=== PATIENT | female | born 1945 | race Caucasian/White ===

== ENCOUNTER → 2018-04-12 | Outpatient (REF) | payer MEDICARE, OTHER | LOC: M LAB REF 13:09 | DX: R91.8 Other nonspecific abnormal finding of lung field (principal); R04.2 Hemoptysis | CPT/HCPCS: 87205 ==

== ENCOUNTER → 2018-04-16 | Outpatient (CLI) | payer MEDICARE, BC, OTHER | LOC: M CARPUL 12:58 | DX: R91.8 Other nonspecific abnormal finding of lung field (principal) | CPT/HCPCS: 94060 ==

== ENCOUNTER → 2018-04-17 | Day surgery (SDC) | payer MEDICARE, BC, OTHER ==
[~2018-04-17] MED LIST: ALBUTEROL SULFATE 2.5 MG/0.5 ML INH NEB SOLN INH; GLYCOPYRROLATE INJ 0.2 MG/ML 2 ML VIAL As Ordered; LIDOCAINE 1% SDV 5 ML VIAL SQ; LIDOCAINE 4% INJ 5 ML AMP INH; LR 1,000 ML IV; MIDAZOLAM INJ 2 MG/2 ML VIAL (J2250) As Ordered; NEOSTIGMINE 10 MG/10 ML VIAL (J2710) As Ordered; ONDANSETRON 4MG/2ML VIAL (J2405) As Ordered; PROPOFOL 200 MG/20 ML VIAL As Ordered; ROCURONIUM BROMIDE 50 MG/5 ML VIAL As Ordered; SUCCINYLCHOLINE 100 MG/5 ML SYRINGE (J0330) As Ordered; dexameTHASONE 4 MG/ML 1ML VIAL (J1100) As Ordered; fentaNYL 100 MCG/2 ML INJECTION (J3010) As Ordered
[2018-04-17] MEDS: THROMBIN SOLN 20,000 UNITS KIT As Ordered ×2 (11:23)
[2018-04-17] MEDS: EPINEPHrine 1MG/10ML SYRINGE 1.5IN As Ordered ×2 (11:24)
[2018-04-17] MEDS: LIDOCAINE 4% TOPICAL SOLN 50 ML BTL As Ordered ×2 (11:24)
[2018-04-17] MEDS: LIDOCAINE VISCOUS 2% SOLN 15ML UDC As Ordered ×2 (11:24)
[2018-04-17] MEDS: CETACAINE SPRAY 5GM As Ordered ×2 (12:02)
[2018-04-17] MEDS: LIDOCAINE 1% SDV INJ 30 ML VIAL As Ordered ×2 (12:47)
== END | disposition home or self-care (01) ==
LOC: M SDC 10:15
DX: C34.32 Malignant neoplasm of lower lobe, left bronchus or lung (principal); C77.0 Secondary and unspecified malignant neoplasm of lymph nodes of head, face and neck; R91.8 Other nonspecific abnormal finding of lung field; R04.2 Hemoptysis; I10 Essential (primary) hypertension; J44.9 Chronic obstructive pulmonary disease, unspecified; E78.4 Other hyperlipidemia; E66.9 Obesity, unspecified; Z87.891 Personal history of nicotine dependence; Z79.899 Other long term (current) drug therapy
CPT/HCPCS: 31628

== ENCOUNTER → 2018-05-07 | Outpatient (CLI) | payer MEDICARE, BC, OTHER | LOC: M PLARAD 08:17 | DX: C34.32 Malignant neoplasm of lower lobe, left bronchus or lung (principal); C77.1 Secondary and unspecified malignant neoplasm of intrathoracic lymph nodes; C77.0 Secondary and unspecified malignant neoplasm of lymph nodes of head, face and neck | CPT/HCPCS: 78815 ==

== ENCOUNTER → 2018-05-15 | Outpatient (REF) | payer MEDICARE, BC, OTHER ==
[2018-05-15 13:44] LABS: INR 1.09; PROTHROMBIN TIME 14.2 SECONDS (12.1-14.4)
[2018-05-15 13:45] LABS: PARTIAL THROMBOPLASTIN TIME 31.1 SECONDS (25.4-37.6)
== END ==
LOC: M LAB REF 12:58
DX: C34.90 Malignant neoplasm of unspecified part of unspecified bronchus or lung (principal); Z79.01 Long term (current) use of anticoagulants
CPT/HCPCS: 85610

== ENCOUNTER → 2018-05-16 | Outpatient (CLI) | payer MEDICARE, BC, OTHER | LOC: M ONCR 13:05 | DX: C34.32 Malignant neoplasm of lower lobe, left bronchus or lung (principal); Z87.891 Personal history of nicotine dependence; I10 Essential (primary) hypertension; E11.9 Type 2 diabetes mellitus without complications | CPT/HCPCS: G0463 ==

== ENCOUNTER → 2018-10-07 | Outpatient (CLI) | payer MEDICARE, BC, OTHER ==
[~2018-10-07] MED LIST changes: -ALBUTEROL SULFATE 2.5 MG/0.5 ML INH NEB SOLN INH; -GLYCOPYRROLATE INJ 0.2 MG/ML 2 ML VIAL As Ordered; +LIDOCAINE 1% MDV 20ML VIAL As Ordered; -LIDOCAINE 1% SDV 5 ML VIAL SQ; -LIDOCAINE 4% INJ 5 ML AMP INH; -LR 1,000 ML IV; -MIDAZOLAM INJ 2 MG/2 ML VIAL (J2250) As Ordered; -NEOSTIGMINE 10 MG/10 ML VIAL (J2710) As Ordered; -ONDANSETRON 4MG/2ML VIAL (J2405) As Ordered; -PROPOFOL 200 MG/20 ML VIAL As Ordered; -ROCURONIUM BROMIDE 50 MG/5 ML VIAL As Ordered; -SUCCINYLCHOLINE 100 MG/5 ML SYRINGE (J0330) As Ordered; -dexameTHASONE 4 MG/ML 1ML VIAL (J1100) As Ordered; -fentaNYL 100 MCG/2 ML INJECTION (J3010) As Ordered
== END ==
LOC: M RADPRO 08:16
DX: C77.0 Secondary and unspecified malignant neoplasm of lymph nodes of head, face and neck (principal); C34.90 Malignant neoplasm of unspecified part of unspecified bronchus or lung
CPT/HCPCS: 38505

== ENCOUNTER → 2018-10-29 | Outpatient (CLI) | payer MEDICARE, BC, OTHER | LOC: M SMT 10:02 | DX: C34.32 Malignant neoplasm of lower lobe, left bronchus or lung (principal); J98.11 Atelectasis | CPT/HCPCS: 71046 ==

== ENCOUNTER 2018-11-01 07:02 | Day surgery (SDC) | payer MEDICARE, BC, OTHER ==
[2018-11-01 07:47] LABS: INR 1.25; PROTHROMBIN TIME 15.9 SECONDS (12.1-14.4)
[2018-11-01] MEDS: LR 1,000 ML IV (07:55)
[2018-11-01 08:01] LABS: BEDSIDE GLUCOSE 124 MG/DL (83-110)
[2018-11-01] MEDS ORDERED: LIDOCAINE 2% INJ 100 MG/5 ML SDV (FOR ANES.) As Ordered (08:32)
[2018-11-01] MEDS ORDERED: PROPOFOL 500 MG/50 ML VIAL As Ordered (08:32)
[2018-11-01] MEDS ORDERED: MIDAZOLAM INJ 2 MG/2 ML VIAL (J2250) As Ordered (08:33)
[2018-11-01] MEDS ORDERED: fentaNYL 100 MCG/2 ML INJECTION (J3010) As Ordered (08:33)
[2018-11-01] MEDS: MUPIROCIN 2% OINT 22 GM TUBE TOP (09:15)
[2018-11-01] MEDS: LIDOCAINE 1% SDV INJ 30 ML VIAL As Ordered (09:18)
[2018-11-01] MEDS: HEPARIN SOD (PORCINE) 5000 UNITS/ML VIAL As Ordered (09:22)
[2018-11-01] MEDS ORDERED: PROPOFOL 200 MG/20 ML VIAL As Ordered (09:23)
[2018-11-01] MEDS: ceFAZolin 2 GM/D5W 50 ML IV BAG (J0690 PER 500MG) As Ordered (09:43)
[2018-11-01] MEDS: BUPIVACAINE LIPOSOME/PF 1.3% 20ML VIAL (13.3MG/ML)(EXPAREL)(C9290 PER1MG) As Ordered (09:43)
== END 2018-11-01 10:45 | disposition home or self-care (01) ==
LOC: M SDC 07:02
DX: C34.32 Malignant neoplasm of lower lobe, left bronchus or lung (principal); Z45.2 Encounter for adjustment and management of vascular access device; I10 Essential (primary) hypertension; E11.9 Type 2 diabetes mellitus without complications; J44.9 Chronic obstructive pulmonary disease, unspecified; E78.5 Hyperlipidemia, unspecified; R32 Unspecified urinary incontinence; Z79.01 Long term (current) use of anticoagulants; Z79.899 Other long term (current) drug therapy; Z87.891 Personal history of nicotine dependence; Z86.718 Personal history of other venous thrombosis and embolism; E66.01 Morbid (severe) obesity due to excess calories
CPT/HCPCS: 36561

== ENCOUNTER → 2018-11-07 | Outpatient (CLI) | payer MEDICARE, BC, OTHER | LOC: M SMT 10:06 | DX: Z01.818 Encounter for other preprocedural examination (principal); C34.32 Malignant neoplasm of lower lobe, left bronchus or lung; J98.11 Atelectasis; J90 Pleural effusion, not elsewhere classified; Z97.8 Presence of other specified devices ==

== ENCOUNTER 2018-11-08 06:45 | Inpatient (IN) | payer MEDICARE, BC, OTHER ==
[2018-11-08] MEDS: IPRATROPIUM 0.5MG/ALBUTEROL 2.5MG INH SOL UD 3ML (DUONEB)(J7620) NEB (07:27)
[2018-11-08 07:36] LABS: BASO % 0.4 % (0.0-1.0); EOS # 0.2 10^3/uL (0.0-0.50); EOS % 2.1 % (0.0-3.0); HEMATOCRIT 34.2 % (36.0-47.0); HEMOGLOBIN 11.2 g/dl (12.0-15.5); IMMATURE GRANULOCYTE % 0.4 % (0-3.0); LYMPH # 0.9 10^3/uL (1.5-4.5); LYMPH % 8.6 % (24.0-44.0); MEAN CORPUSCULAR HEMOGLOBIN 26.9 pg (27.0-33.0); MEAN CORPUSCULAR HGB CONC 32.7 g/dl (32.0-36.5); MONO # 0.8 10^3/uL (0.0-0.8); NEUTROPHILS # 8.7 10^3/uL (1.8-7.7); NEUTROPHILS % 81.5 % (36.0-66.0); PLATELET COUNT, AUTOMATED 108 10^3/uL (150-450); RED BLOOD COUNT 4.17 10^6/uL (4.00-5.40); WHITE BLOOD COUNT 10.7 10^3/uL (4.0-10.0)
[2018-11-08 07:38] LABS: VENOUS BASE EXCESS 0.9 (-2.0-2.0); VENOUS O2 SATURATION 91.4 % (60.0-80.0); VENOUS PARTIAL PRESSURE CO2 38.1 mmHg (38.0-50.0); VENOUS PARTIAL PRESSURE O2 60.7 mmHg (30.0-50.0); VENOUS PH 7.435 UNITS (7.330-7.430); VENOUS STANDARD HCO3 25.2 MEQ/L; VENOUS TOTAL CO2 26.2 MEQ/L (24.0-28.0)
[2018-11-08 07:46] LABS: INR 1.53; PROTHROMBIN TIME 18.6 SECONDS (12.1-14.4)
[2018-11-08 08:40] LABS: ALBUMIN 3.2 GM/DL (3.2-5.2); ALBUMIN/GLOBULIN RATIO 0.91 (1.00-1.93); ALKALINE PHOSPHATASE 79 U/L (45-117); ALT/SGPT 49 U/L (12-78); ANION GAP 11 MEQ/L (8-16); AST/SGOT 369 U/L (7-37); BILIRUBIN,DIRECT 0.3 MG/DL (0.0-0.2); BILIRUBIN,TOTAL 1.4 MG/DL (0.2-1.0); BLOOD UREA NITROGEN 17 MG/DL (7-18); CALCIUM LEVEL 8.3 MG/DL (8.8-10.2); CARBON DIOXIDE LEVEL 24 MEQ/L (21-32); CHLORIDE LEVEL 107 MEQ/L (98-107); CPK CREATINE PHOSPHOKINASE 1848 U/L (26-192); CREATININE FOR GFR 0.86 MG/DL (0.55-1.30); GLOMERULAR FILTRATION RATE > 60.0 (>39); GLUCOSE, FASTING 148 MG/DL (70-100); MB/CK RELATIVE INDEX 8.51 (< OR =4); NT-PRO BNP 4950 PG/ML (<450); POTASSIUM SERUM 3.1 MEQ/L (3.5-5.1); SODIUM LEVEL 142 MEQ/L (136-145); TOTAL PROTEIN 6.7 GM/DL (6.4-8.2)
[2018-11-08] MEDS: ASPIRIN 81 MG CHEW TABLET PO (08:52)
[2018-11-08] MEDS ORDERED: METOPROLOL TARTRATE 100 MG TAB PO (09:00)
[2018-11-08] MEDS ORDERED: LISINOPRIL *2.5 MG* TAB PO (09:00)
[2018-11-08] MEDS: CLOPIDOGREL 300 MG TAB (PLAVIX) PO (09:13)
[2018-11-08] MEDS ORDERED: NITROGLYCERIN 0.4 MG SUBL TABLET SL (10:15)
[2018-11-08] MEDS ORDERED: PILL CRUSHER/CUTTER 1 EACH XX (11:00)
[2018-11-08 13:24] LABS: INR 1.45; PARTIAL THROMBOPLASTIN TIME 33.9 SECONDS (25.4-37.6); PROTHROMBIN TIME 17.9 SECONDS (12.1-14.4)
[2018-11-08 13:35] LABS: ESTIMATED AVERAGE GLUCOSE 123 MG/DL (60-110); HEMOGLOBIN A1c 5.9 %
[2018-11-08 13:55] LABS: CPK CREATINE PHOSPHOKINASE 1703 U/L (26-192); MB/CK RELATIVE INDEX 6.17 (< OR =4)
[2018-11-08] MEDS: ATORVASTATIN 20 MG TAB PO (14:43)
[2018-11-08] MEDS: METOPROLOL TART 25 MG TABLET PO ×2 (14:44→21:09)
[2018-11-08] MEDS: FOLIC ACID 1 MG TAB PO (14:44)
[2018-11-08] MEDS: LOSARTAN 25 MG TAB PO (14:45)
[2018-11-08] MEDS: RIVAROXABAN 20 MG TAB (XARELTO) PO (17:10)
[2018-11-08 20:00] LABS: CPK CREATINE PHOSPHOKINASE 1218 U/L (26-192); MB/CK RELATIVE INDEX 4.21 (< OR =4)
[2018-11-08 22:31] LABS: PARTIAL THROMBOPLASTIN TIME 42.6 SECONDS (25.4-37.6)
[2018-11-08] MEDS: HEPARIN DRIP 25,000 UNITS in APPROPRIATE DILUENT 1 EA IV (22:43)
[2018-11-09 02:20] LABS: CPK CREATINE PHOSPHOKINASE 899 U/L (26-192); MB/CK RELATIVE INDEX 3.08 (< OR =4)
[2018-11-09 05:41] LABS: HEMATOCRIT 34.3 % (36.0-47.0); HEMOGLOBIN 11.1 g/dl (12.0-15.5); MEAN CORPUSCULAR HEMOGLOBIN 26.9 pg (27.0-33.0); MEAN CORPUSCULAR HGB CONC 32.4 g/dl (32.0-36.5); MEAN CORPUSCULAR VOLUME 83.1 fl (80.0-96.0); PLATELET COUNT, AUTOMATED 119 10^3/uL (150-450); RED BLOOD COUNT 4.13 10^6/uL (4.00-5.40); WHITE BLOOD COUNT 13.3 10^3/uL (4.0-10.0)
[2018-11-09] MEDS: METOPROLOL TART 25 MG TABLET PO ×2 (05:44→09:47)
[2018-11-09 05:53] LABS: PARTIAL THROMBOPLASTIN TIME 67.3 SECONDS (25.4-37.6)
[2018-11-09] MEDS: ALBUTEROL 90 MCG/ACT 8GM HFA INHALER INH (05:55)
[2018-11-09 05:59] LABS: ANION GAP 10 MEQ/L (8-16); BLOOD UREA NITROGEN 25 MG/DL (7-18); CALCIUM LEVEL 8.1 MG/DL (8.8-10.2); CARBON DIOXIDE LEVEL 25 MEQ/L (21-32); CHLORIDE LEVEL 107 MEQ/L (98-107); CREATININE FOR GFR 0.91 MG/DL (0.55-1.30); GLOMERULAR FILTRATION RATE > 60.0 (>39); GLUCOSE, FASTING 145 MG/DL (70-100); POTASSIUM SERUM 3.1 MEQ/L (3.5-5.1); SODIUM LEVEL 142 MEQ/L (136-145)
[2018-11-09] MEDS: GILOTRIF PO (06:26)
[2018-11-09] MEDS: POTASSIUM CHLORIDE 10 MEQ SR TABLET PO (07:59)
[2018-11-09] MEDS: ASPIRIN ENTERIC 325 MG TAB PO (08:01)
[2018-11-09] MEDS: CLOPIDOGREL 75 MG TAB PO (08:01)
[2018-11-09] MEDS: ATORVASTATIN 20 MG TAB PO (08:01)
[2018-11-09] MEDS: FOLIC ACID 1 MG TAB PO (08:01)
[2018-11-09] MEDS: LOSARTAN 25 MG TAB PO (09:47)
[2018-11-09 10:32] LABS: PARTIAL THROMBOPLASTIN TIME 64.1 SECONDS (25.4-37.6)
[2018-11-09] MEDS: HEPARIN SOD (PORCINE) 5000 UNITS/ML VIAL IV (11:04)
[2018-11-09] MEDS: HEPARIN DRIP 25,000 UNITS in APPROPRIATE DILUENT 1 EA IV (11:53)
== END 2018-11-09 12:54 | disposition short-term general hospital (02) | DRG 281 ==
LOC: M ED 06:45 → M ED INP 10:54 → M PCU 12:12
PROVIDERS: Internal Medicine
DX: I21.4 Non-ST elevation (NSTEMI) myocardial infarction (principal); C34.90 Malignant neoplasm of unspecified part of unspecified bronchus or lung; C77.0 Secondary and unspecified malignant neoplasm of lymph nodes of head, face and neck; I10 Essential (primary) hypertension; E11.9 Type 2 diabetes mellitus without complications; Z86.718 Personal history of other venous thrombosis and embolism; E78.49 Other hyperlipidemia; Z79.899 Other long term (current) drug therapy; E66.9 Obesity, unspecified; Z66 Do not resuscitate

== ENCOUNTER 2018-11-19 16:39 | Inpatient (IN) | payer MEDICARE, BC, OTHER ==
[~2018-11-19] VITALS: Ht 165.1 cm; Wt 116.6 kg
[~2018-11-19 16:39] MED LIST changes: +**UNRESOLVED NON-FORMULARY MED ORDER XX SCH; +DEXA4TA PO; +FOLI1TAB5 PO; +GILO1TAB2 PO; +IMOD2CAP PO; -LIDOCAINE 1% MDV 20ML VIAL As Ordered; +LOSA100T5 PO; +LOSA50TA5 PO; +PRAV10TA3 PO; +PROAAER10 INH; +XARE20TA PO; +[UNRECOGNIZED DRUG - CODE] PO
[2018-11-19] MEDS ORDERED: FURO40TA2 (17:11)
[2018-11-19] MEDS ORDERED: LISI-542 (17:11)
[2018-11-19] MEDS ORDERED: ASPI81CH3 (17:11)
[2018-11-19] MEDS ORDERED: METO50TA7 (17:11)
[2018-11-19] MEDS ORDERED: AMIO200T (17:11)
[2018-11-19] MEDS ORDERED: CLOP75TA2 (17:11)
[2018-11-19] MEDS ORDERED: SPIR-10 (17:12)
[2018-11-19] MEDS ORDERED: NITR0.4S14 (17:12)
[2018-11-19] MEDS ORDERED: PANT40TA3 (17:12)
[2018-11-19 17:13] LABS: VENOUS BASE EXCESS -1.9 (-2.0-2.0); VENOUS HCO3 22.9 MEQ/L (23.0-27.0); VENOUS O2 SATURATION 68.7 % (60.0-80.0); VENOUS PARTIAL PRESSURE CO2 39.2 mmHg (38.0-50.0); VENOUS PARTIAL PRESSURE O2 38.7 mmHg (30.0-50.0); VENOUS PH 7.384 UNITS (7.330-7.430); VENOUS STANDARD HCO3 22.3 MEQ/L; VENOUS TOTAL CO2 24.1 MEQ/L (24.0-28.0)
[2018-11-19] MEDS ORDERED: IPRATROPIUM 0.5MG/ALBUTEROL 2.5MG INH SOL UD 3ML (DUONEB)(J7620) NEB ONE (17:15)
[2018-11-19 17:18] LABS: BASO # 0.1 10^3/uL (0.0-0.2); BASO % 0.5 % (0.0-1.0); EOS # 0.4 10^3/uL (0.0-0.50); EOS % 3.6 % (0.0-3.0); HEMOGLOBIN 10.2 g/dl (12.0-15.5); LYMPH # 1.1 10^3/uL (1.5-4.5); LYMPH % 10.9 % (24.0-44.0); MEAN CORPUSCULAR HEMOGLOBIN 26.4 pg (27.0-33.0); MEAN CORPUSCULAR HGB CONC 31.9 g/dl (32.0-36.5); MEAN CORPUSCULAR VOLUME 82.7 fl (80.0-96.0); MONO # 0.7 10^3/uL (0.0-0.8); NEUTROPHILS # 7.8 10^3/uL (1.8-7.7); NEUTROPHILS % 76.9 % (36.0-66.0); PLATELET COUNT, AUTOMATED 207 10^3/uL (150-450); RED BLOOD COUNT 3.87 10^6/uL (4.00-5.40); WHITE BLOOD COUNT 10.2 10^3/uL (4.0-10.0)
[2018-11-19 17:40] LABS: INR 3.18; PROTHROMBIN TIME 33.3 SECONDS (12.1-14.4)
[2018-11-19 17:52] LABS: ALBUMIN 3.2 GM/DL (3.2-5.2); BILIRUBIN,DIRECT 0.1 MG/DL (0.0-0.2); BILIRUBIN,TOTAL 1.2 MG/DL (0.2-1.0); CALCIUM LEVEL 8.2 MG/DL (8.8-10.2); CREATININE FOR GFR 1.27 MG/DL (0.55-1.30); GLOMERULAR FILTRATION RATE 43.7 (>39); MB/CK RELATIVE INDEX 2.01 (< OR =4); POTASSIUM SERUM 5.5 MEQ/L (3.5-5.1); THYROID STIMULATING HORMONE 4.28 uIU/ML (0.358-3.740); THYROXINE (T4) 9.9 UG/DL (4.5-12.0); TOTAL PROTEIN 7.2 GM/DL (6.4-8.2); TROPONIN I 0.78 NG/ML (< 0.10)
--- NOTE | 2018-11-19 17:57 | REP ---
Clinical: Cough and dyspnea. Comparison: 11/08/2018. Findings: Mediastinum and cardiac silhouette are stable. Jiwjmz-B-Jurm again identified with tip in the SVC. Diffuse chronic interstitial changes are noted. No obvious acute consolidation, effusion, or pneumothorax. Skeletal structures intact. Impression: Findings appear relatively stable when compared to 11/08/2018. Electronically Signed by Danish Rico MD 11/19/2018 05:48 P
[2018-11-19] MEDS ORDERED: FUROSEMIDE 40 MG/4 ML VIAL (J1940) IV ONE (18:15)
[2018-11-19 19:45] LABS: MB/CK RELATIVE INDEX 4.5 (< OR =4); TROPONIN I 0.78 NG/ML (< 0.10)
[2018-11-19 20:48] LABS: POTASSIUM SERUM 3.6 MEQ/L (3.5-5.1)
[2018-11-19] MEDS ORDERED: PANT40TA3 PO (21:14)
[2018-11-19] MEDS ORDERED: ASPI81CH PO (21:14)
[2018-11-19] MEDS ORDERED: IMOD2TAB16 PO (21:14)
[2018-11-19] MEDS ORDERED: FURO40TA2 PO (21:14)
[2018-11-19] MEDS ORDERED: NITR4TASL SL (21:14)
[2018-11-19] MEDS ORDERED: METO50TA7 PO (21:14)
[2018-11-19] MEDS ORDERED: AMIO200T PO (21:14)
[2018-11-19] MEDS ORDERED: CLOP75TA2 PO (21:14)
[2018-11-19] MEDS ORDERED: SPIR-10 PO (21:14)
[2018-11-19] MEDS ORDERED: LISI-542 PO (21:14)
[2018-11-19] MEDS ORDERED: ALBUTEROL 90 MCG/ACT 8GM HFA INHALER INH PRN (21:45)
[2018-11-19] MEDS ORDERED: ACETAMINOPHEN TAB 650MG DOSE (2X325MG) PO PRN (22:15)
[2018-11-19] MEDS ORDERED: FUROSEMIDE 100 MG/10 ML VIAL (J1940) IV SCH (23:00)
[2018-11-20] VITALS (8 sets, daily range): BP systolic 92–155; BP diastolic 50–68
[2018-11-20 05:17] LABS: HEMATOCRIT 31.7 % (36.0-47.0); MEAN CORPUSCULAR HEMOGLOBIN 25.8 pg (27.0-33.0); MEAN CORPUSCULAR HGB CONC 31.5 g/dl (32.0-36.5); MEAN CORPUSCULAR VOLUME 81.9 fl (80.0-96.0); PLATELET COUNT, AUTOMATED 175 10^3/uL (150-450); RED BLOOD COUNT 3.87 10^6/uL (4.00-5.40); WHITE BLOOD COUNT 10.2 10^3/uL (4.0-10.0)
[2018-11-20 05:50] LABS: CALCIUM LEVEL 9.1 MG/DL (8.8-10.2); CREATININE FOR GFR 1.03 MG/DL (0.55-1.30); GLOMERULAR FILTRATION RATE 55.6 (>39); POTASSIUM SERUM 3.3 MEQ/L (3.5-5.1); TROPONIN I 0.81 NG/ML (< 0.10)
[2018-11-20] MEDS ORDERED: FUROSEMIDE 100 MG/10 ML VIAL (J1940) IV SCH (06:00)
[2018-11-20] MEDS ORDERED: GILOTRIF 40 MG PO SCH (06:00)
[2018-11-20] MEDS ORDERED: KCL 10MEQ/100ML SWI (KRUN) 10 MEQ in APPROPRIATE DILUENT 1 EA IV ONE (07:00)
[2018-11-20] MEDS ORDERED: POTASSIUM CHLORIDE 10 MEQ SR TABLET PO ONE ×2 (07:00→12:00)
--- NOTE | 2018-11-20 07:01 | HPE ---
DATE OF ADMISSION: 11/19/2018 73-year-old white female presents to the emergency room with shortness of breath. Her history is noteworthy for a recent anterior myocardial infarction (WV) toward the end of October. She was admitted initially to [facility] with shortness of breath and electrocardiographic and enzymes compatible with anterior wall WV. She had initially refused transfer to [place] but later did acquiesce to that decision. She underwent cardiac catheterization. She had occluded mid LAD and had coronary thrombectomy, balloon angioplasty and bare metal stent placement. Bare metal stent was placed as the patient also is on long-term anticoagulation with Xarelto for recent deep venous thrombosis (DVT) in her left leg. At time of cardiac catheterization, she had severe left ventricular dysfunction with an ejection fraction (EF) of about 25%. Around the time of the procedure, she also had an episode of atrial fibrillation.and now on Amiodarone She comes in today again with shortness of breath. She has been home for about 4 days she states. She is short of breath with any activity. Her electrocardiogram is unchanged with evidence of recent anterior wall WV. There is also evidence of a prior inferior wall WV. Her rhythm is normal sinus. Her chest x-ray is compatible with cardiomegaly and congestive heart failure. Pro-BNP is elevated and troponin is elevated at 0.78 without a rise from initial value which was the same. Her pro-BMP is 9000. PAST MEDICAL HISTORY: Cardiac history as above with recent ST elevation WV (anterior wall) with thrombectomy and stent placement in LAD with residual EF of about 25%, recent PAF, fairly recent DVT left leg associated with lung cancer with mets to a cervical lymph node. She does have a port left subclavian area. She also has diabetes but does not take any medications for same. She follows with Dr. Martinez for her lung cancer. She has a followup cardiology appointment with Dr. Castro on December 06. She normally follows with Dr. Hernandez. She also has a history of hypertension. She has had remote tubal ligation. She is also noted to be anemic with hemoglobin recently in the low to mid 30s. SOCIAL HISTORY: She lives with her . She stopped smoking 30 years ago. FAMILY HISTORY: Dad had premature coronary disease. There is no diabetes in her family, although the patient states she is a diabetic. She does not take any medications for same. She states she watches her diet. CURRENT MEDICATIONS: - amiodarone 200 mg daily - baby aspirin - Plavix 75 mg - Lasix 40 mg - lisinopril 5 mg - metoprolol tartrate 50 mg two times a day - Protonix 40 mg a day - spirolactone 25 mg - Afatinib 40 mg a day - folic acid 1 mg a day - pravastatin 10 mg a day - Xarelto 20 mg a day REVIEW OF SYSTEMS: General: She has not had any weight gain since she has been home from the hospital. HEENT: Is negative. Cardiopulmonary: Shortness of breath. She denies any chest pain. GI: Negative. : Urinary frequency following Lasix given in the ER. Hematologic: Easy bruising. She has multiple bruises. Psych: Negative. Vascular: Recent DVT left leg. Hematologic: Recent mild anemia as noted. PHYSICAL EXAMINATION: Blood pressure is 150/70. Heart rate is 70, O2 sats on room air 97%. Temperature is afebrile. General appearance: Obese white female, alert and cooperative. She does not appear to be short of breath at rest. She talks in complete sentences. HEENT: Head is normocephalic, atraumatic. Eyes: Pupils are equal. Sclerae anicteric. Conjunctival injection. Oropharynx: There is only one or two teeth remaining. Neck is very full, difficult to assess neck veins but there is no obvious JVD. There is a lymph node in the right supraclavicular area noted. Apparently this is metastatic cancer from her lung. Cardiac was regular with systolic murmur. I was unable to appreciate any gallops. Chest: Rales at the bases bilaterally. Few wheezes at the right base. Abdomen: Obese, otherwise unremarkable. Extremities: No clubbing, cyanosis or edema. Recent DVT in left leg. Neuro: Intact. Skin: Multiple areas of ecchymosis. Catheterization site was right radial artery. This has a bandage over it. It is nontender. Database: EKG is as described which is unchanged from prior. Troponin as noted. BNP as noted. Chest x-ray as noted. Renal function: GFR 43. Lactic acid is mildly elevated at 2.1, probably secondary to heart failure. There is no clinical suggestion of sepsis. IMPRESSION/PLAN: 1. Ischemic cardiomyopathy with CHF with recent cardiac catheterization and stent following an ST elevation WV with stent LAD with residual EF about 25%. The patient is on a small dose of MOLLY inhibitor. Options would be to increase that or possibly consider switching to Entresto. Certainly she would be a good candidate for that. She will be treated initially with diuretic therapy. Certainly there is room with her blood pressure to increase her MOLLY. She has an appointment with Dr. Castro on December 06 already scheduled. 2. Probably underlying COPD stopped smoking 35 years ago. 3. Lung cancer with metastasis. 4. Recent DVT on Xarelto. Also continues on Plavix and aspirin with recent bare metal stent. 5. Diabetes diet-controlled. Her sugars run in the mid 100 it looks like. 6. Hypertensive cardiovascular disease. 7. PAF currently on amiodarone. 8. Metastatic lung cancer. The patient does have a port in the left subclavian area. She is scheduled for chemotherapy, follows with Dr. Martinez, currently on an oral medication which will be continued (Afatinib). 9. Hyperlipidemia, she is currently on pravastatin 10 mg. We will put her on a high intensity statin. MTDD
[2018-11-20] MEDS ORDERED: PANTOPRAZOLE 40MG TAB (PROTONIX) PO SCH (09:00)
[2018-11-20] MEDS ORDERED: METOPROLOL TART 50 MG TAB PO SCH (09:00)
[2018-11-20] MEDS ORDERED: AMIODARONE 200 MG TAB (PACERONE) PO SCH (09:00)
[2018-11-20] MEDS ORDERED: SPIRONOLACTONE 25 MG TAB PO SCH (09:00)
[2018-11-20] MEDS ORDERED: FOLIC ACID 1 MG TAB PO SCH (09:00)
[2018-11-20] MEDS ORDERED: ASPIRIN 81 MG CHEW TABLET PO SCH (09:00)
[2018-11-20] MEDS ORDERED: CLOPIDOGREL 75 MG TAB PO SCH (09:00)
[2018-11-20] MEDS ORDERED: LISINOPRIL 10 MG TAB PO SCH (09:00)
[2018-11-20] MEDS ORDERED: AMIODARONE HCL 150 MG in APPROPRIATE DILUENT 1 EA IV STA (09:19)
[2018-11-20] MEDS ORDERED: AMIODARONE HCL 150 MG/100 ML PREMIXED BAG (NEXTERONE) As Ordered ONE (09:22)
[2018-11-20] MEDS ORDERED: NITROGLYCERIN 2% OINT 1 GM *U/D* PKT As Ordered ONE (09:24)
[2018-11-20 09:49] LABS: HEMATOCRIT 34.5 % (36.0-47.0); HEMOGLOBIN 10.9 g/dl (12.0-15.5); MEAN CORPUSCULAR HEMOGLOBIN 26.8 pg (27.0-33.0); MEAN CORPUSCULAR HGB CONC 31.6 g/dl (32.0-36.5); PLATELET COUNT, AUTOMATED 160 10^3/uL (150-450); RED BLOOD COUNT 4.06 10^6/uL (4.00-5.40); WHITE BLOOD COUNT 16.7 10^3/uL (4.0-10.0)
[2018-11-20] MEDS ORDERED: HEPARIN DRIP 25,000 UNITS in APPROPRIATE DILUENT 1 EA IV SCH (10:00)
[2018-11-20] MEDS ORDERED: HEPARIN SOD (PORCINE) 5000 UNITS/ML VIAL IV PRN (10:00)
[2018-11-20] MEDS ORDERED: AMIODARONE HCL 150 MG in APPROPRIATE DILUENT 1 EA IV ONE (10:00)
[2018-11-20] MEDS ORDERED: HEPARIN 25,000 UNITS/250 ML D5W BAG (100 UNITS/ML) As Ordered ONE (10:05)
[2018-11-20] MEDS ORDERED: AMIODARONE HCL 360 MG/200 ML PREMIXED BAG (NEXTERONE) As Ordered ONE (10:05)
--- NOTE | 2018-11-20 10:10 | REP ---
Chest one-view HISTORY: Cardiac arrest Comparison: 11/19/2018 A minimal increase in interstitial markings is present in the lungs consistent with chronic interstitial change. The cardiac silhouette is enlarged. The pulmonary vasculature is normal in appearance. An Ijftlu-G-Pmaj catheter is present. Impression: 1. Chronic interstitial change. 2. Cardiomegaly. Electronically Signed by Rafi Faustin MD 11/20/2018 10:01 A
[2018-11-20 10:16] LABS: CALCIUM LEVEL 8.7 MG/DL (8.8-10.2); CREATININE FOR GFR 1.38 MG/DL (0.55-1.30); GLOMERULAR FILTRATION RATE 39.7 (>39); MB/CK RELATIVE INDEX 4.08 (< OR =4); POTASSIUM SERUM 3.6 MEQ/L (3.5-5.1); TROPONIN I 0.78 NG/ML (< 0.10)
[2018-11-20] MEDS ORDERED: AMIODARONE HCL 360 MG in APPROPRIATE DILUENT 1 EA IV SCH (10:30)
[2018-11-20] MEDS ORDERED: NS 1,000 ML IV SCH (10:30)
--- NOTE | 2018-11-20 10:31 | ECGEPIP ---
Stationary ECG Study [facility] Test Date: 2018-11-20 Pat Name: GRIFFIN BRADY Department: Room: [place] [address] Gender: F It [employer] Rec[employer]iter: KYLAH : 1945 Requested By: PAOLA CERVANTES Order Number: [id number] Reading MD: Ryan Ralph Measurements Intervals [place] Rate: 82 P: DE: 0 QRS: 47 QRSD: 120 T: 151 QT: 400 QTc: 468 Interpretive Statements Normal sinus rhythm alternating with accelerated junctional rhythm. Somewhat low voltage with slow precordial R-wave progression. QRS pattern with elevated ST segmentsV1 through V5 - Unchanged from 11/09/18 consistent with prior AWMI/LV aneurysm. Today's tracing shows less ectopic activity despite her recent cardiac arrest Electronically Signed On 11-20-2018 10:31:01 EST by Ryan Ralph
[2018-11-20] MEDS ORDERED: EPINEPHrine 1MG/10ML SYRINGE 1.5IN ONE (11:14)
--- NOTE | 2018-11-20 12:27 | DS.PDOC ---
Discharge Summary General Date of Admission Nov 19, 2018 at 21:37 Date of Discharge 11/20/2018 Discharge Summary PROCEDURES PERFORMED DURING STAY: [None]. ADMITTING DIAGNOSES / DISCHARGE DIAGNOSES: Cardiac arrest STEMI - possibly 2/2 stent reocclusion CAD s/p stent HTN DM2 (Diet controlled) DLP Hx of LLE DVT (on Xarelto) Stage III Advanced Lung adenocarcinoma with spread to cervical lymph nodes COMPLICATIONS/CHIEF COMPLAINT: Shortness of breath HISTORY OF PRESENT ILLNESS / HOSPITAL COURSE: Patient is a 73-year-old female with a past medical history of hypertension, diabetes mellitus (diet controlled), hyperlipidemia, Hx of LLE DVT (on Xarelto), Lung adenocarcinoma with spread to cervical lymph nodes, with plan to start chemotherapy. Recent admission on 11/08 and transfer to [facility] on 11/09 for cardiac catheterization for STEMI. Patient a cardiac catheterization completed on 11/11, and had a stent placement. Presented back to the hospital on 11/19/2018 for shortness of breath. Patient was admitted by the nocturnal his for suspected fluid overload from congestive heart failure. Chest x-ray revealed chronic interstitial changes and cardiomegaly. BNP was found to be 9000. Troponin were not significantly elevated and remained at 0.78 0.81. EKG did reveal ischemic change. On the morning of 11/20/2018 patient developed ventricular tachycardia and went into cardiac arrest. She received epinephrine and was shocked twice. Discussed with the , Brian Juares, during the code, had advised to stop resuscitation efforts. However, at this time, patient's pulse had regained. Her mentation had improved and her heart rate was in sinus rhythm. Amiodarone was started. Patient indicated that she wants everything to be done. I've advised her that this would involve having reevaluation of her recent stent. Patient verbalized understanding and steps or taken to transfer the patient to [facility] in [place]. Patient was accepted on transfer by Dr. Niko Morillo who had originally performed the cardiac catheterization. Patient is transferred with amiodarone and heparin drip. DISCHARGE MEDICATIONS: Please see below. ALLERGIES: Please see below. PHYSICAL EXAMINATION ON DISCHARGE: Vitals (See below) General: Lying in bed, no acute distress, comfortable, Awake / Alert, Conversing HEENT: NC, AT CVS: RRR, +S1S2 Lungs: Fair air entry b/l, -w/r/r Abdomen: Soft, ND, NT Extremities: - Edema, - Calf tenderness LABORATORY DATA: Please see below. ACTIVITY: [As tolerated]. DISCHARGE PLAN: Transfer to [facility] for further cardiac evaluation DISPOSITION: Transfer to [facility] for further cardiac evaluation DISCHARGE CONDITION: [Stable]. TIME SPENT ON DISCHARGE: Greater than [35] minutes. Vital Signs/I&Os Vital Signs Date Time Temp Pulse Resp B/P (MAP) Pulse Ox O2 Delivery O2 Flow Rate FiO2 11/20/18 09:06 92 155/68 11/20/18 08:00 97.8 20 90 Room Air I&O- Last 24 Hours up to 6 AM 11/20/18 06:00 Output Total 700 ml Balance -700 ml Laboratory Data Labs 24H Laboratory Tests 2 11/19/18 17:03: Immature Granulocyte % (Auto) 1.1, White Blood Count 10.2H, Red Blood Count 3.87 L, Hemoglobin 10.2L, Hematocrit 32.0L, Mean Corpuscular Volume 82.7, Mean Corpuscular Hemoglobin 26.4L, Mean Corpuscular Hemoglobin Concent 31.9L, Red Cell Distribution Width 15.4H, Platelet Count 207, Neutrophils (%) (Auto) 76.9H, Lymphocytes (%) (Auto) 10.9L, Monocytes (%) (Auto) 7.0H, Eosinophils (%) (Auto) 3.6H, Basophils (%) (Auto) 0.5, Neutrophils # (Auto) 7.8H, Lymphocytes # (Auto) 1.1L, Monocytes # (Auto) 0.7, Eosinophils # (Auto) 0.4, Basophils # (Auto) 0.1, Nucleated Red Blood Cells % (auto) 0.2H, Prothrombin Time 33.3H, Prothromb Time International Ratio 3.18, Blood Gas Bicarbonate Standard 22.3, Venous Blood pH 7.384, Venous Blood Partial Pressure CO2 39.2, Venous Blood Partial Pressure O2 38.7, Venous Blood Total Carbon Dioxide 24.1, Venous Blood HCO3 22.9L, Venous Blood Oxygen Saturation 68.7, Venous Blood Base Excess -1.9, Anion Gap 10, Glomerular Filtration Rate 43.7, Lactic Acid Level 2.1*H, Calcium Level 8.2L, Aspartate Amino Transf (AST/SGOT) 79H, Alanine Aminotransferase (ALT/SGPT) 41, Alkaline Phosphatase 83, Total Bilirubin 1.2H, Direct Bilirubin 0.1, Total Crea sriram Kinase 279H, Creatine Kinase MB 6.0H, Creatine Kinase MB Relative Index 2.01, Troponin I 0.78H, LC-Geq-A-Type Natriuretic Peptide 9155H, Total Protein 7.2, Albumin 3.2, Albumin/Globulin Ratio 0.80L, Thyroid Stimulating Hormone (TSH) 4.280H, Thyroxine (T4) 9.9 11/19/18 19:00: Total Creatine Kinase 120, Creatine Kinase MB 5.0H, Creatine Kinase MB Relative Index 4.50H, Troponin I 0.78H, Potassium Level 3.6# 11/20/18 04:38: Nucleated Red Blood Cells % (auto) 0.0, Anion Gap 8, Glomerular Filtration Rate 55.6, Calcium Level 9.1, Troponin I 0.81H, Potassium Level 3.3L, Blood Urea Nitrogen 23H, Creatinine 1.03, Sodium Level 141, Chloride Level 109H, Carbon Dioxide Level 24 11/20/18 09:36: Nucleated Red Blood Cells % (auto) 0.4H, Anion Gap 15, Glomerular Filtration Rate 39.7, Lactic Acid Level 7.3*H, Calcium Level 8.7L, Total Creatine Kinase 152, Creatine Kinase MB 6.0H, Creatine Kinase MB Relative Index 4.08H, Troponin I 0.78H, Potassium Level 3.6, Blood Urea Nitrogen 22H, Creatinine 1.38H, Sodium Level 139, Chloride Level 105, Carbon Dioxide Level 19L CBC/BMP Laboratory Tests 11/19/18 17:03 Red Blood Count 3.87 L, Mean Corpuscular Volume 82.7, Mean Corpuscular Hemoglobin 26.4 L, Mean Corpuscular Hemoglobin Concent 31.9 L, Red Cell Distribution Width 15.4 H, Neutrophils (%) (Auto) 76.9 H, Lymphocytes (%) (Auto) 10.9 L, Monocytes (%) (Auto) 7.0 H, Eosinophils (%) (Auto) 3.6 H, Basophils (%) (Auto) 0.5, Neutrophils # (Auto) 7.8 H, Lymphocytes # (Auto) 1.1 L, Monocytes # (Auto) 0.7, Eosinophils # (Auto) 0.4, Basophils # (Auto) 0.1 11/19/18 19:00 Total Creatine Kinase 120 11/20/18 04:38 Red Blood Count 3.87 L, Mean Corpuscular Volume 81.9, Mean Corpuscular Hemoglobin 25.8 L, Mean Corpuscular Hemoglobin Concent 31.5 L, Red Cell Distribution Width 15.3 H, Calcium Level 9.1 11/20/18 09:36 Red Blood Count 4.06, Mean Corpuscular Volume 85.0, Mean Corpuscular Hemoglobin 26.8 L, Mean Corpuscular Hemoglobin Concent 31.6 L, Red Cell Distribution Width 15.6 H, Total Creatine Kinase 152, Calcium Level 8.7 L Microbiology Microbiology 11/19/18 Blood Culture, Received Pending 11/19/18 Blood Culture, Received Pending 11/19/18 Respiratory Virus Panel (PCR) (BENEDICT) - Final, Complete Discharge Medications Scheduled (Gilotrif) 40 Mg Tab, 40 MG PO DAILY, (Reported) TAKES AT 0600 (Aspirin) 81 Mg Chw, 81 MG PO DAILY, (Reported) Amiodarone HCl (Amiodarone HCl) 200 Mg Tab, 200 MG PO DAILY, (Reported) Clopidogrel Bisulfate (Clopidogrel) 75 Mg Tab, 75 MG PO DAILY, (Reported) Folic Acid (Folic Acid) 1 Mg Tab, 1 MG PO DAILY, (Reported) Furosemide (Furosemide) 40 Mg Tab, 40 MG PO DAILY, (Reported) Lisinopril (Lisinopril) 5 Mg Tab, 5 MG PO DAILY, (Reported) Metoprolol Tartrate (Metoprolol Tartrate) 50 Mg Tab, 50 MG PO BID, (Reported) Pantoprazole Sodium (Pantoprazole Sodium) 40 Mg Tab, 40 MG PO DAILY, (Reported) Pravastatin Sodium (Pravastatin Sodium) 10 Mg Tab, 10 MG PO DAILY, (Reported) Rivaroxaban (Xarelto) 20 Mg Tab, 20 MG PO DAILY, (Reported) TAKES AT 0700 Spironolactone (Spironolactone) 25 Mg Tab, 25 MG PO DAILY, (Reported) Scheduled PRN Albuterol Sulfate (Proair Hfa) 108 Mcg/Act Aer, 2 PUFF INH QID PRN for SHORTNESS OF BREATH, (Reported) Loperamide Hcl (Imodium A-D) 2 Mg Tab, 2 MG PO ASDIRECTED PRN for DIARRHEA, (Reported) TAKES 4MG WITH INITIAL DOSE, THEN 2MG FOR EACH LOOSE STOOL. MDD= 16MG. Nitroglycerin (Nitrostat) 0.4 Mg Subl, 0.4 MG SL NITRO PRN for CHEST PAIN, (Reported) Allergies Coded Allergies: Eggs or Egg-derived Products (Unverified Adverse Reaction, Intermediate, DIARRHEA, 11/19/18) PAOLA CERVANTES MD Nov 20, 2018 12:27
--- NOTE | 2018-11-20 13:10 | IPN ---
DATE: 11/20/2018 Max cart called on 11/20/2018 at approximately 9:15 am. Patient was conversational and all of the sudden slumped over. Max cart was called by nursing staff. Physician was immediate plata to bedside for evaluation. Patient was unresponsive and not breathing. No pulse was detected. Subsequently cardiopulmonary resuscitation was started once patient was bagged by respiratory therapist and pad was placed on the patient. Informed by nursing staff patient recently had a cardiac catheter and also had low injection fraction of 25%. Cardiac cath with stenting due to myocardial infarction and low ejection fraction of 25%. One round of epi was given and patient was monitored showing a first V-tach done immediately converted into v-fib. Patient was shocked subsequently chest compression was resumed and after going on with chest compression patient was found to have a pulse detected. While attempting to intubate the patient the patient became more responsive and at the same time on the monitor patient went into v-fib again. Subsequently the patient was shocked and chest compression was restarted but after the second defibrillator shock patient was a lot more responsive, moving all four extremities, able to verbalize subsequently attempt of intubation was abandoned given patient was biting down and more responsive. Vital signs were obtained and patient has a blood pressure 140/60 with a heart rate of 120. Sinus tachycardia. More after the second defibrillator shock patient was given 150 mg of amiodarone. Patient subsequently was more responsive and placed on rebreather. Stat lab was sent and patient was transferred to intensive care unit for further discussion of closer care and further management, possible differential include arrhythmias due to congestive heart failure and recent coronary arterial disease and recent CA versus instant occlusion. Cardiac enzyme and EKG was ordered. Currently is able to protect her airway and able to verbalize and moves all four extremities in sinus tachycardia with bilateral breath sound that is rhonchus. Further care as per primary attending.
--- NOTE | 2018-11-20 16:59 | ECGEPIP ---
Stationary ECG Study [facility] - ED Test Date: 2018-11-19 Pat Name: GRIFFIN BRADY Department: Room: - Gender: F Generalist: ct : 1945 Requested By: Katy Negrete Order Number: [id number] Reading MD: Katy Negrete Measurements Intervals [place] Rate: 76 P: 44 NC: 188 QRS: 21 QRSD: 119 T: 100 QT: 422 QTc: 477 Interpretive Statements SINUS RHYTHM INFERIOR MYOCARDIAL INFARCTION, OF INDETERMINATE AGE ANTEROLATERAL MYOCARDIAL INFARCTION, AGE INDETERMINATE, SIMILAR DISTRIBUTION RI?ANEURYSM Electronically Signed On 11-20-2018 16:58:52 EST by Katy Negrete
[2018-11-20] MEDS ORDERED: RIVAROXABAN 20 MG TAB (XARELTO) PO SCH (18:00)
[2018-11-22] MEDS ORDERED: GILO1TAB2 PO (18:14)
== END 2018-11-20 11:15 | disposition short-term general hospital (02) | DRG 280 ==
LOC: M ED 16:39 → M ED INP 21:37 → M PCU 11-20 02:42 → M ICU 11-20 09:27
PROVIDERS: ATTEND Internal Medicine
DX: T82.855A Stenosis of coronary artery stent, initial encounter (principal); I21.4 Non-ST elevation (NSTEMI) myocardial infarction; I46.9 Cardiac arrest, cause unspecified; C34.90 Malignant neoplasm of unspecified part of unspecified bronchus or lung; C77.0 Secondary and unspecified malignant neoplasm of lymph nodes of head, face and neck; I25.5 Ischemic cardiomyopathy; I48.0 Paroxysmal atrial fibrillation; E11.9 Type 2 diabetes mellitus without complications; D64.9 Anemia, unspecified; I11.0 Hypertensive heart disease with heart failure; E78.5 Hyperlipidemia, unspecified; I25.10 Atherosclerotic heart disease of native coronary artery without angina pectoris; I50.9 Heart failure, unspecified; Z86.718 Personal history of other venous thrombosis and embolism; Z79.82 Long term (current) use of aspirin; Z79.02 Long term (current) use of antithrombotics/antiplatelets; Z79.01 Long term (current) use of anticoagulants; Z79.899 Other long term (current) drug therapy; Z95.5 Presence of coronary angioplasty implant and graft; Z87.891 Personal history of nicotine dependence; Y83.1 Surgical operation with implant of artificial internal device as the cause of abnormal reaction of the patient, or of later complication, without mention of misadventure at the time of the procedure

== ENCOUNTER → 2019-12-09 | Outpatient (CLI) | payer MEDICARE, BC, OTHER ==
[~2019-12-09] MED LIST changes: -**UNRESOLVED NON-FORMULARY MED ORDER XX SCH; +AMIO200T; +AMIO200T PO; +ANOR1AER PO; +ASPI81CH48; +ASPI81CH49 PO; +ATOR40TA75 PO; +AUGM875T28 PO; +CLOP75TA2; +CLOP75TA2 PO; +CLOT10TR PO; +FOLI1TAB11 PO; -FOLI1TAB5 PO; +FOND10SO SC; +FURO40TA2; +FURO40TA2 PO; +IMOD2TAB16 PO; +KLOR10TA76 PO; +KLOR20TA42 FT; +LISI-1046 PO; +LISI-542; +LISI-542 PO; +METO25TA4 PO; +METO50TA7; +METO50TA7 PO; +MIRA3350 PO; +NITR0.4S14; +NITR4TASL SL; +PANT40TA3; +PANT40TA3 PO; +SLOW160T8 PO; +SPIR-10; +SPIR-10 PO; +SYNT50TA PO; +VITA-149 PO; +VITA500T PO
--- NOTE | 2019-12-10 08:48 | REP ---
PET/CT: History: Monitor response left lower lobe lung carcinoma. Immunotherapy. Comparisons: Comparison PET/CT study May 07, 2018. TECHNIQUE: 1 hour 58 minutes following the intravenous injection of a 9.08 mCi dose of F-18 FDG, three-dimensional PET scintigraphy is acquired from the skull base to the proximal thighs. Triplanar noncontrast CT scanning is acquired through the same anatomic range for attenuation correction, and image registration with scan parameters optimized to minimize radiation exposure to the patient. PET scintigraphy and CT datasets were fused and displayed on a workstation with multiplanar and projection display capability. PET/CT Findings: Head and neck soft tissues are unremarkable. There is a right-sided pacemaker and a left-sided Rycdsg-A-Lhlk. The previously noted supraclavicular adenopathy has resolved. The previously noted mediastinal adenopathy has resolved. There is no hypermetabolic mediastinal adenopathy. The left lower lobe mass noted previously has improved. There is some residual hypermetabolic uptake in the left lower lobe lesion, maximum standard uptake value 5.31. Previously 10.27. There is no other abnormal pulmonary parenchymal hypermetabolic uptake. In the abdomen and pelvis, there is normal hepatic, splenic, gastrointestinal, and genitourinary distribution. There is some mild uptake in injection sites in the subcutaneous fat of the anterior abdominal wall. Cholelithiasis is noted. Impression: Markedly improved. There is some residual hypermetabolic uptake in a improved but residual opacity in the left lower lobe. No other abnormal hypermetabolic uptake is appreciated. Electronically Signed by Wojciech Harding MD 12/10/2019 01:14 P
== END ==
LOC: M PLARAD 11:45
PROVIDERS: ATTEND Internal Medicine Hematology & Oncology
DX: C34.32 Malignant neoplasm of lower lobe, left bronchus or lung (principal)
CPT/HCPCS: 78815; A9552

== ENCOUNTER → 2020-04-02 | Outpatient (REF) | payer MEDICARE, OTHER ==
[~2020-04-02] MED LIST changes: +LEVO75TA4 PO; -LISI-1046 PO; +LISI2.5T2 PO; +SILV40CR TOP; +VITA-243 PO; -VITA500T PO
[2020-04-02 10:57] LABS: CHOLESTEROL RISK RATIO 3.224 (<5)
== END ==
LOC: M LAB REF 09:43
PROVIDERS: ATTEND Physician Assistant
DX: E78.2 Mixed hyperlipidemia (principal)

== ENCOUNTER → 2020-04-22 | Outpatient (CLI) | payer MEDICARE, BC, OTHER | LOC: M LABSMTC 10:39 | PROVIDERS: ATTEND Family Medicine | DX: Z03.818 Encounter for observation for suspected exposure to other biological agents ruled out (principal); Z11.59 Encounter for screening for other viral diseases | CPT/HCPCS: C9803; U0003 ==

== ENCOUNTER → 2020-08-06 | Outpatient (REF) | payer MEDICARE, OTHER ==
[~2020-08-06] MED LIST changes: -AMIO200T; -AMIO200T PO; +AMIO200T3; +AMIO200T3 PO; +AMOX500T2 PO; +PANT40TA29; +PANT40TA29 PO; -PANT40TA3; -PANT40TA3 PO
[2020-08-06 14:46] LABS: CALCIUM LEVEL 9.1 MG/DL (8.8-10.2); CHOLESTEROL RISK RATIO 2.937 (<5); CREATININE FOR GFR 1.01 MG/DL (0.55-1.30); GLOMERULAR FILTRATION RATE 56.6 (>39)
== END ==
LOC: M LAB REF 09:27
PROVIDERS: ATTEND Nurse Practitioner Family
DX: I10 Essential (primary) hypertension (principal); E78.2 Mixed hyperlipidemia

== ENCOUNTER → 2020-08-24 | Outpatient (CLI) | payer MEDICARE, BC, OTHER ==
--- NOTE | 2020-08-30 09:44 | REP ---
PET CT HISTORY: Left lower lobe lung carcinoma. COMPARISON: PET CT study 12/09/2019. CT study chest 05/19/2020. TECHNIQUE: 69 minutes following the intravenous injection of an 8.22 mCi dose of F18 fluorodeoxyglucose (FDG), three-dimensional PET CT imaging is acquired in the usual fashion. PET CT FINDINGS: The previously noted spiculated appearing lesion in the left lower lobe is again seen with mild hypermetabolic activity. Maximum standard uptake value 3.52. On PET CT study from 12/09/2019, this maximum standard uptake value was 5.31 in this density. Originally, 05/07/2018, this area showed maximum standard uptake value of 10.27. There is no other abnormal hypermetabolic uptake in the chest. No abnormal hilar or mediastinal hypermetabolic uptake is seen. No other area of abnormal pulmonary parenchymal hypermetabolic uptake is observed. No adrenal abnormality is seen. Normal distribution of tracer is seen in the abdomen and pelvis. No abnormal abdominal or pelvic hypermetabolic uptake is appreciated. IMPRESSION: Stable findings with minimally hypermetabolic residual density in the left lower lobe similar to the most recent prior study. No new hypermetabolic uptake seen. MTDD
== END ==
LOC: M PLARAD 11:38
PROVIDERS: ATTEND Internal Medicine Medical Oncology
DX: C34.32 Malignant neoplasm of lower lobe, left bronchus or lung (principal)
CPT/HCPCS: 78815; A9552

== ENCOUNTER → 2020-09-21 | Outpatient (CLI) | payer MEDICARE, BC, OTHER ==
--- NOTE | 2020-09-21 15:39 | RADONC ---
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 She originally had a primary in the LLL, mediastinal nodes, and supraclavicular nodes BL. She was seen by Dr. Raza and deemed inappropriate for definitive chemoradiation at that time and so underwent systemic therapy upfront. She was originally treated with afatinib with a poor response and sub sequent progression. She was transitioned to chemoimmunotherapy 01/16/19 and had a near CR. From June 2020 she has continued on atezolizumab monotherapy with maintained metabolic CR disease except for a single lesion in the LLL ~2 cm in greatest extent which remains PET avid. Diagnosis/Treatment History Oncologic History Per Dr. Rebolledo's recent note: 1. Left lung adenocarcinoma with PET scan from 04/2018 showing left lower lobe lung mass, 6 cm in size, metastatic hilar, mediastinal, bilateral supraclavicular and left neck adenopathy. PD-L1 less than 1% and no expression, ROS1 negative. Positive for exon 21 L858R EGFR mutation. Started afatinib May 2018 up to December 2018. 2. Doppler ultrasound positive for DVT 04/2018 with history of heparin-induced thrombocytopenia 2018. Currently on fondaparinux. 3. CT scan from 08/2018, showing an equivocal response 4. CT scan from 09/2018 showing disease progression in cervical nodes and mediastinal nodes, FNA neck node showing metastatic poorly differentiated carcinoma 09/2018 consistent with primary lung adenocarcinoma, EGFR exon 21 L858R mutation positive, exon 20 T790M mutation negative. 5. Carboplatin/pemetrexed/bevacizumab/atezolizumab 01/16/19-03/27/19 x 4 cycles 6. Bevacizumab/atezolizumab 04/06. Bevacizumab discontinued 06/2020 after increasing blood pressure. 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 This puts extensive constraints on her availability to attend medical appointments. She has some VICKERS and a cough with occasional wheezing. No CP, or palpitations. Feels chronic fatigue but is not limited in her ADLs. Current Therapy Atezolizumab q3w Stage [id number] (cervical lymph node involved at time of progression 09/2018) Social History: Former smoker 50+ pack year 1-2 drinks monthly Allergies / Meds Allergies: Coded Allergies: heparin (Verified Adverse Reaction, Severe, (HIT) Heparin Induced Thrombocytopenia, 02/13/19) Home Meds Active Scripts Folic Acid (Folic Acid) 1 Mg Tab, 1 MG PO DAILY, #90 TAB 3 Refills Prov:KRISTEN REBOLLEDO MD 07/16/20 Fondaparinux Sodium (Fondaparinux Sodium) 10 Mg/0.8 Ml Syringe, 10 MG SC DAILY for 30 Days, #30 INJ 5 Refills Prov:AUDIE NEAL MD 05/11/20 Silver Sulfadiazine (Silvadene) 400 Gm Cream..g., 1 APLCT TOP BID for 30 Days, #400 GRAM 1 Refill apply to affected area(s) Prov:AUDIE NEAL MD 04/02/20 Polyethylene Glycol 3350 (Miralax) 1 Pow Pow, 17 GRAM PO BID for constipation, #255 GRAM 3 Refills dissolve in water Prov:KAYLYNN PATTERSON MD 01/22/19 Reported Medications Levothyroxine Sodium (LEVOTHYROXINE SODIUM) 75 Mcg Tablet, 75 MCG PO DAILY 01/09/20 Lisinopril (Lisinopril) 5 Mg Tablet, 10 MG PO DAILY for 30 Days, #30 TAB 01/09/20 Metoprolol Tartrate (Metoprolol Tartrate) 25 Mg Tablet, 1 TAB PO BID 10/15/19 Furosemide (Furosemide) 40 Mg Tab, 40 MG PO BID, TAB 02/14/19 Ascorbic Acid (Vitamin C with Radha Hips) 500 Mg Tab, 500 MG PO BIDP, TAB 01/22/19 Ferrous Sulfate, Dried (Slow Release Iron) 160 Mg Tab, 160 MG PO BIDP, TAB 01/22/19 Atorvastatin Calcium (Atorvastatin Calcium) 40 Mg Tab, 80 MG PO DAILY for 30 Days, #30 TAB 12/10/18 Spironolactone (Spironolactone) 25 Mg Tab, 25 MG PO DAILY, TAB 11/19/18 Pantoprazole Sodium (Pantoprazole Sodium) 40 Mg Tab, 40 MG PO DAILY, TAB 11/19/18 Nitroglycerin (Nitrostat) 0.4 Mg Subl, 0.4 MG SL NITRO PRN for CHEST PAIN, TAB 11/19/18 Clopidogrel Bisulfate (Clopidogrel) 75 Mg Tab, 75 MG PO DAILY, TAB 11/19/18 Albuterol Sulfate (Proair Hfa) 108 Mcg/Act Aer, 2 PUFF INH QID PRN for SHORTNESS OF BREATH 04/12/18 Discontinued Reported Medications Umeclidinium Brm/Vilanterol Tr (Anoro Ellipta 62.5-25 Mcg INH) 1 Each Blst.w.dev, 1 PUFF PO DAILY, #1 EA 05/23/19 Discontinued Scripts Amoxicillin/Potassium Clav (Amox-Clav 500-125 mg Tablet) 1 Each Tablet, 500 MG PO TID, #21 TAB Prov:KRISTEN REBOLLEDO MD 07/16/20 Review of Systems Review of Systems Constitutional: Denies: ROS Unabtainable, Chills, Fever, Malaise, Night Sweats, Weakness, Fatigue, Weight Loss, Lethargy, Normal appetite, Other symptoms Eyes: Denies: Pain, Vision change, Conjunctivae inflammation, Eyelid inflammation, Redness, Other HEENT: Denies: Head Aches, Ear Pain, Dysphagia, Sinus Congestion, Post Nasal Drip, Sore Throat, Epistaxis, Other Symptoms Skin: Denies: Rash, Lesions, Jaundice, Bruising, Other Breast: Denies: New Breast Lumps / Masses, Nipple Retraction, Nipple Discharge, Breast Skin Changes, Breast Pain or Tenderness, Other Breast Complaints Pulmonary: Denies: Dyspnea, Cough, Pleuritic Chest Pain, Other Symptoms Cardiovascular: Denies: Chest Pain, Palpitations, Orthopnea, Paroxysmal Noc. Dyspnea, Edema, Lt Headedness, Other Symptoms Gastrointestinal: Denies: Nausea, Vomiting, Abdominal Pain, Diarrhea, Con stipation, Melena, Hematochezia, Other Symptoms Genitourinary: Denies: Dysuria, Frequency, Incontinence, Hematuria, Retention, Other Symptoms Hematologic: Denies: Bruising, Bleeding Excessively, Petecchia, Purpura, Enlarged Lymph Nodes, Other Hematologic Endocrine: Denies: Polydipsia, Polyphagia, Polyuria, Heat Intolerance, Cold Intolerance, Other Endocrine Sx Musculoskeletal: Denies: Neck pain, Shoulder pain, Arm pain, Back pain, Hand pain, Leg pain, Foot pain, Joint pain, Muscle pain, Spasms, Gout, Joint sweling, Muscle stiffness, Midthoracic pain, Other Neurological: Denies: Weakness, Numbness, Incoordination, Change in Speech, Confusion, Seizures, Other Symptoms Psych: Denies: Mood Normal, Anxiety, Depression, Memory Issues, Thoughts of Self Harm, Anger, Thoughts of harming Other, Other Psych Physical Examination Vital Signs Ht 62" Wt 256lb BMI 46 T 97.8 P 68 RR 20 BP 169/71 O2 96% Pain 0 Fatigue 3 General Exam: Positive: Alert, Cooperative; Negative: No Acute Distress Eye Exam: Positive: PERRLA, EOMI ENT EXAM: Positive: Atraumatic, Pharynx Normal Neck Exam: Positive: Supple; Negative: Lymphadenopathy Chest Exam: Positive: Clear to auscultation, Wheezing Heart Exam: Positive: Rate Normal, Regular Rhythm Abdomen Exam: Positive: Normal bowel sounds, Soft; Negative: Tenderness Extremity Exam: Negative: Edema Skin Exam: Positive: Nl turgor and temperature Neuro Exam: Positive: Normal Gait, Normal Speech, Cranial Nerves 3-12 NL Psych Exam: Positive: Mental status NL, Mood NL Diagnostic and Laboratory Diagnostic Review Radiologic images, relevant labs and pathology reports were personally reviewed and discussed with Ms. Juares. Assessment and Plan Impression Assessment Ms. 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 She originally had a primary in the LLL, mediastinal nodes, and supraclavicular nodes BL. She was seen by Dr. Raza and deemed inappropriate for definitive chemoradiation at that time and so underwent systemic therapy upfront. She was originally treated with afatinib with a poor response and subsequent progression. She was transitioned to chemoimmunotherapy 01/16/19 and had a near CR. From June 2020 she has continued on atezolizumab monotherapy with maintained metabolic CR disease except for a single lesion in the LLL ~2 cm in greatest extent which remains PET avid. She has a persistent LLL lesion which is all that remains of her original disease burden. As this is the primary tumor (her only intraparenchymal lung lesion at the time of diagnosis, through the present PET-CT from August 2020, and the only remaining discernible lesion body-wide) she is appropriate for SBRT in the oligometastatic setting. I recommend 60 Gy in 5 fractions to this tumor with 4DCT simulation and DCA planning. She agrees to pursue treatment, given her status as her spouse's only reliable caregiver, she may take some time to arrange him care for her treatment appointments. In the meantime she may receive her immunotherapy as scheduled. I do not foresee a need to hold any cycles of treatment as SBRT+concurrent immunotherapy is safe as per the [place] PEMBRO-RT trial. Rather, I will fit her treatments into a non- infusion week. We reviewed there is a 5-8% risk of symptomatic pneumonitis, as well as some fatigue expected. Simulation can occur in the next 1-2 weeks contingent upon her availability. Performance Status ECOG 0 Plan SBRT to LLL primary tumor 60 Gy in 5 fractions Simulation next 1-2 weeks Ms. Juares was encouraged to call with questions or concerns in the interim period. CHIO PATTEN MD Sep 21, 2020 15:38
== END ==
LOC: M ONCR 12:41
PROVIDERS: ATTEND General Practice
DX: C34.32 Malignant neoplasm of lower lobe, left bronchus or lung (principal); C77.1 Secondary and unspecified malignant neoplasm of intrathoracic lymph nodes

== ENCOUNTER → 2020-10-18 | Outpatient (RCR) | payer MEDICARE, BC, OTHER | LOC: M ONCR 09-30 10:17 | PROVIDERS: ATTEND General Practice | DX: C34.32 Malignant neoplasm of lower lobe, left bronchus or lung (principal) ==

== ENCOUNTER 2020-10-22 11:40 | Outpatient (RCR) | payer MEDICARE, BC, OTHER | END 2020-11-18 | LOC: M ONCR 11:40 | PROVIDERS: ATTEND General Practice | DX: C34.32 Malignant neoplasm of lower lobe, left bronchus or lung (principal) ==

== ENCOUNTER → 2021-01-28 | Outpatient (CLI) | payer MEDICARE, BC, OTHER ==
[~2021-01-28] MED LIST changes: +ISOVUE-370 76% 100ML VIAL As Ordered ONE; -LISI-542; -LISI-542 PO; +LISI-898; +LISI-898 PO
--- NOTE | 2021-01-28 10:06 | REP ---
INDICATION: MALLIGNANT NEOPLASM OF LOWER LOBE COMPARISON: 09/30/2020 TECHNIQUE: Axial contrast enhanced images from the thoracic inlet to the upper abdomen with coronal and sagittal reformations using 75 ml Isovue 370 intravenous contrast material. This CT examination was performed using the following dose reduction techniques: Automated exposure control, adjustment of mA and/or kv according to the patient's size, and use of iterative reconstruction technique. FINDINGS: Somewhat ill-defined 3.5 cm area of consolidation in the left lower lobe is again identified and unchanged. Small area of opacity/scarring in the lingula and along the lateral right base (series 201; image 73) also remains stable. No new consolidation, significant nodule or mass lesion is appreciated. No pleural effusion. No pneumothorax. Tracheobronchial tree is patent. No adenopathy noted. Further evaluation of the mediastinum demonstrates atherosclerotic changes to the thoracic aorta and coronary arteries without thoracic aortic aneurysm or dissection. Pacemaker in stable position. Kurckl-V-[id number] with tip in the SVC. Musculoskeletal structures demonstrate presumed degenerative changes. Limited upper abdomen demonstrates normal bilateral adrenal glands. IMPRESSION: 1. Stable areas of somewhat ill-defined opacity at the left base as well as small stable areas of opacity/scarring at the lingula and peripheral right lung base. 2. No new acute mediastinal or pleuroparenchymal process appreciated. Given the patient's history of malignancy, continued surveillance may be warranted. <Electronically signed by Danish Rico > 01/28/21 [id number]
== END ==
LOC: M RAD 08:04
PROVIDERS: ATTEND General Practice
DX: C34.32 Malignant neoplasm of lower lobe, left bronchus or lung (principal)
CPT/HCPCS: 71260; Q9967

== ENCOUNTER → 2021-04-29 | Outpatient (CLI) | payer MEDICARE, BC, OTHER ==
[~2021-04-29] MED LIST changes: -ISOVUE-370 76% 100ML VIAL As Ordered ONE
--- NOTE | 2021-04-29 13:22 | RADONC ---
Radiation Oncology Hx/FUP Radiation Oncology Hx/FUP Date of Service: Apr 29, 2021 Pt Identifier Machelle Juares is a 75 year old female seen for a followup visit today at the department of radiation oncology for a history of NSCLC EGFR+ diagnosed in April 2018. She originally had a primary in the LLL, mediastinal nodes, and supraclavicular nodes BL. She was seen by Dr. Raza and deemed inappropriate for definitive chemoradiation at that time and so underwent systemic therapy upfront. She was originally treated with afatinib with a poor response and subsequent progression. She was transitioned to chemoimmunotherapy 01/16/19 and had a near CR. From June 2020 she has continued on atezolizumab monotherapy with maintained metabolic CR disease except for a single lesion in the LLL ~2 cm in greatest extent which remained PET avid. She underwent SBRT for this 60 Gy in 5 fractions completed 10/22/20. Diagnosis/Treatment History Oncologic History 1. Left lung adenocarcinoma with PET scan from 04/2018 showing left lower lobe lung mass, 6 cm in size, metastatic hilar, mediastinal, bilateral supraclavicular and left neck adenopathy. PD-L1 less than 1% and no expression, ROS1 negative. Positive for exon 21 L858R EGFR mutation. Started afatinib May 2018 up to December 2018. 2. Doppler ultrasound positive for DVT 04/2018 with history of heparin-induced thrombocytopenia 2018. Currently on fondaparinux. 3. CT scan from 08/2018, showing an equivocal response 4. CT scan from 09/2018 showing disease progression in cervical nodes and mediastinal nodes, FNA neck node showing metastatic poorly differentiated carcinoma 09/2018 consistent with primary lung adenocarcinoma, EGFR exon 21 L858R mutation positive, exon 20 T790M mutation negative. 5. Carboplatin/pemetrexed/bevacizumab/atezolizumab 01/16/19-03/27/19 x 4 cycles 6. Bevacizumab/atezolizumab 04/06. Bevacizumab discontinued 06/2020 after increasing blood pressure. 7. SBRT LLL nodule 60 Gy in 5 fractions 10/18/20-10/22/21 8. 01/28/21 CT chest with stability Interval History Feels well overall. Stable VICKERS, using a rolling walker so she can rest if she gets winded. No significant cough. Feels breathing is stable since SBRT. Has occasional aches and pains but none too bothersome. is stable, doing well. She has excellent appetite and stable weight. Current Therapy Atezolizumab q3w from 06/2020- Stage [id number] (cervical lymph node involved at time of progression 09/2018) Social History: Former smoker 50+ pack year 1-2 drinks monthly Allergies / Meds Allergies: Coded Allergies: heparin (Verified Adverse Reaction, Severe, (HIT) Heparin Induced Thrombocytopenia, 02/13/19) Home Meds Active Scripts Folic Acid (Folic Acid) 1 Mg Tab, 1 MG PO DAILY, #90 TAB 3 Refills Prov:KRISTEN MARTINEZ MD 07/16/20 Fondaparinux Sodium (Fondaparinux Sodium) 10 Mg/0.8 Ml Syringe, 10 MG SC DAILY for 30 Days, #30 INJ 5 Refills Prov:AUDIE NEAL MD 05/11/20 Polyethylene Glycol 3350 (Miralax) 1 Pow Pow, 17 GRAM PO BID for constipation, #255 GRAM 3 Refills dissolve in water Prov:KAYLYNN PATTERSON MD 01/22/19 Reported Medications Levothyroxine Sodium (LEVOTHYROXINE SODIUM) 75 Mcg Tablet, 75 MCG PO DAILY 01/09/20 Lisinopril (Lisinopril) 5 Mg Tablet, 10 MG PO DAILY for 30 Days, #30 TAB 01/09/20 Metoprolol Tartrate (Metoprolol Tartrate) 25 Mg Tablet, 1 TAB PO BID 10/15/19 Furosemide (Furosemide) 40 Mg Tab, 40 MG PO BID, TAB 02/14/19 Ferrous Sulfate, Dried (Slow Release Iron) 160 Mg Tab, 160 MG PO BIDP, TAB 01/22/19 Atorvastatin Calcium (Atorvastatin Calcium) 40 Mg Tab, 80 MG PO DAILY for 30 Days, #30 TAB 12/10/18 Spironolactone (Spironolactone) 25 Mg Tab, 25 MG PO DAILY, TAB 11/19/18 Pantoprazole Sodium (Pantoprazole Sodium) 40 Mg Tab, 40 MG PO DAILY, TAB 11/19/18 Nitroglycerin (Nitrostat) 0.4 Mg Subl, 0.4 MG SL NITRO PRN for CHEST PAIN, TAB 11/19/18 Clopidogrel Bisulfate (Clopidogrel) 75 Mg Tab, 75 MG PO DAILY, TAB 11/19/18 Albuterol Sulfate (Proair Hfa) 108 Mcg/Act Aer, 2 PUFF INH QID PRN for SHORTNESS OF BREATH 04/12/18 Review of Systems Review of Systems Constitutional: Reports: Fatigue; Denies: Fever, Weight Loss Eyes: Denies: Pain HEENT: Denies: Head Aches Skin: Denies: Rash Pulmonary: Reports: Dyspnea; Denies: Cough, Pleuritic Chest Pain Cardiovascular: Denies: Chest Pain, Palpitations Gastrointestinal: Denies: Abdominal Pain Hematologic: Denies: Bruising, Bleeding Excessively Musculoskeletal: Reports: Back pain, Leg pain; Denies: Neck pain Neurological: Denies: Weakness, Numbness Psych: Reports: Mood Normal Physical Examination Vital Signs Wt 255 lbs T 97.8 P 57 RR 20 BP 135/62 O2 98% Pain 0 Fatigue 1 General Exam: Positive: Alert, Cooperative, No Acute Distress Eye Exam: Positive: PERRLA, EOMI ENT EXAM: Positive: Atraumatic Neck Exam: Positive: Supple Chest Exam: Positive: Clear to auscultation Heart Exam: Positive: Rate Normal Abdomen Exam: Positive: Soft Extremity Exam: Negative: Edema Skin Exam: Positive: Nl turgor and temperature Neuro Exam: Positive: Normal Gait, Normal Speech, Cranial Nerves 3-12 NL Psych Exam: Positive: Mental status NL Diagnostic and Laboratory Diagnostic Review Radiologic images, relevant labs and pathology reports were personally reviewed and discussed with Ms. Juares. Assessment and Plan Impression Assessment Ms. 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 She originally had a primary in the LLL, mediastinal nodes, and supraclavicular nodes BL. She was seen by Dr. Raza and deemed inappropriate for definitive chemoradiation at that time and so underwent systemic therapy upfront. She was originally treated with afatinib with a poor response and subsequent progression. She was transitioned to chemoimmunotherapy 01/16/19 and had a near CR. From June 2020 she has continued on atezolizumab monotherapy with maintained metabolic CR disease except for a single lesion in the LLL ~2 cm in greatest extent which remained PET avid. She underwent SBRT for this 60 Gy in 5 fractions completed 10/22/20. Her most recent imaging from January 2020 was stable with respect to the LLL lesion on report. Per comparison with her planning CT, I believe it has responded and is smaller on this study, it also has the usual perilesional scarring evident. Overall her disease is stable and she is stable from a symptom standpoint. She is due to see Dr. Martinez with restaging scans later this month. Because she continues on immunotherapy maintenance and is in good response, I discussed seeing her again in 6 months time to cut down on her appointments. If a need arises for additional RT in the interim I could easily see her. Performance Status ECOG 1 Plan Follow up in 6 months Restaging scans per Dr. Martinez (next 05/16/21) Ms. Juares was encouraged to call with questions or concerns in the interim period. Billing Statement Total time of [21] minutes was spent preparing for the visit [1], obtaining HPI [5], examining the patient [1], reviewing diagnostic tests [3], discussing management options [4], coordinating care [1], and writing this note [6]. CHIO PATTEN MD Apr 29, 2021 13:22
== END ==
LOC: M ONCR 11:26
PROVIDERS: ATTEND General Practice
DX: C34.32 Malignant neoplasm of lower lobe, left bronchus or lung (principal); Z86.718 Personal history of other venous thrombosis and embolism; Z87.891 Personal history of nicotine dependence; Z88.8 Allergy status to other drugs, medicaments and biological substances; Z92.21 Personal history of antineoplastic chemotherapy

== ENCOUNTER → 2021-05-16 | Outpatient (CLI) | payer MEDICARE, BC, OTHER ==
[~2021-05-16] MED LIST changes: +COVI100V IM; +GASTROGRAFIN SOLUTION 30ML (Q9963) As Ordered ONE; +ISOVUE-370 76% 100ML VIAL As Ordered ONE; -LISI2.5T2 PO; +LISI2.5T9 PO; +TREL1AER PO
--- NOTE | 2021-05-16 11:06 | REP ---
INDICATION: LUNG CA F/U COMPARISON: 01/28/2021 TECHNIQUE: Axial contrast enhanced images from the thoracic inlet to the upper abdomen with coronal and sagittal reformations using 100 ml Isovue 370 intravenous contrast material followed by CT of the abdomen and pelvis. This CT examination was performed using the following dose reduction techniques: Automated exposure control, adjustment of mA and/or kv according to the patient's size, and use of iterative reconstruction technique. FINDINGS: Nodular opacity extending from the left infrahilar region measuring roughly 4.4 x 2.5 x 3.0 cm and has increased from prior examination (series 204; images 62-70). Remainder of lung fisher demonstrate stable chronic changes. No further acute consolidation, nodule, mass, effusion or pneumothorax. No obvious significant adenopathy noted. Further evaluation of the mediastinum demonstrates stable atherosclerotic changes to the thoracic aorta and coronary arteries without aortic aneurysm/dissection or cardiomegaly. No significant pericardial effusion. Pacemaker and [id number] in satisfactory position. Surrounding musculoskeletal structures demonstrate degenerative changes. Thyroid gland is grossly normal by CT evaluation. IMPRESSION: 1. Nodular mass/opacity extending from the left infrahilar region to the peripheral left lower lobe has increased in size from prior examination. Findings are concerning for active pathology/malignancy. <Electronically signed by Danish Rico > 05/16/21 [id number]
--- NOTE | 2021-05-16 11:08 | REP ---
INDICATION: LUNG CA F/U. COMPARISON: Multiple the latest 05/19/2020 TECHNIQUE: Standard helical technique after the intravenous administration of 100 cc Isovue 370. Oral bowel preparatory contrast was administered prior to the exam. FINDINGS: The liver and spleen are within normal limits. There is cholelithiasis status quo. The pancreas, adrenal glands, and kidneys are again seen to be within normal limits. There is no significant change in appearance of the abdominal aorta or para-regions. There is no evidence of free fluid or free air. There is no significant change in the appearance of the bowel loops or the mesenteries. No mass or adenopathy has developed. Once again, seen throughout the subcutaneous adipose tissue multiple focal areas of mixed density are again noted. Bone window technique throughout the exam shows no significant change in appearance of the imaged osseous structures. No lung base windowed images were sent to the read station for interpretation. Patient also had chest CT obtained same day. IMPRESSION: 1. There is no evidence of acute disease. Chronic changes as described above. The subcutaneous soft tissue mixed densities likely represent multiple subcutaneous injection sites. <Electronically signed by Abdirahman Moe > 05/16/21 [id number]
== END ==
LOC: M RAD 09:04
PROVIDERS: ATTEND Internal Medicine Medical Oncology
DX: C34.90 Malignant neoplasm of unspecified part of unspecified bronchus or lung (principal)
CPT/HCPCS: 71260; 74177; Q9963; Q9967

== ENCOUNTER → 2021-06-06 | Outpatient (CLI) | payer MEDICARE, BC, OTHER ==
[~2021-06-06] MED LIST changes: -GASTROGRAFIN SOLUTION 30ML (Q9963) As Ordered ONE; -ISOVUE-370 76% 100ML VIAL As Ordered ONE; +LISI2.5T2 PO; -LISI2.5T9 PO; -TREL1AER PO
--- NOTE | 2021-06-07 08:37 | REP ---
INDICATION: RESTAGING LEFT LOWER LOBE LUNG CANCER C34.32. Lung adenocarcinoma metastatic to cervical lymph nodes. Treated with chemotherapy. Radiation therapy. COMPARISON: Comparison PET-CT studies are dated May 07, 2018, December 09, 2019, and August 24, 2020. Comparison is made with chest abdomen pelvis CT study May 16, 2021.. TECHNIQUE: Sixty-six minutes following the intravenous injection of a 9.27 mCi dose of F-18 FDG, three-dimensional PET scintigraphy is acquired from the skull base to the proximal thighs. Triplanar noncontrast CT scanning is acquired through the same anatomic range for attenuation correction, and image registration with scan parameters optimized to minimize radiation exposure to the patient. PET scintigraphy and CT datasets were fused and displayed on a workstation with multiplanar and projection display capability. FINDINGS: Incidental findings include right-sided pacemaker and left-sided Lbycvp-A-Lakl can devices. The right subclavian artery is noted to be ectatic and tortuous with as before. Gallstones are visible in the gallbladder. Injection sites are seen in the subcutaneous fat of the anterior abdominal wall. Head and neck soft tissues are unremarkable. There is a focus of mildly hypermetabolic uptake in the right breast soft tissues associated with a fat density containing lesion consistent with an area of fat necrosis. Maximum standard uptake value here is 3.44. No axillary, neck, or subclavian hypermetabolic adenopathy is appreciated. There is some skeletal muscle and arthropathy associated uptake at the shoulders. In the abdomen and pelvis, there is normal FDG distribution. No abnormal hypermetabolic uptake is seen in the abdomen or pelvis. There is mild uptake associated with injection sites in the subcutaneous fat of the anterior abdominal wall. These areas also appear on CT consistent with fat necrosis. No abnormal adrenal uptake is seen. The enlarging area of parenchymal opacity in the left lower lobe of the lung is again seen to show mildly hypermetabolic uptake. Maximum standard uptake value here is 3.25, previously 3.52 and 5.31 on PET-CT studies done August 24, 2020 and December 09, 2019 respectively. On the accompanying CT the area does appear a little larger today. This is nonspecific. No other abnormal hypermetabolic uptake is seen within the thorax. IMPRESSION: Low-level hypermetabolic uptake is again noted in the persistent opacity in the left lower lobe of the lung region., 3.25 SUV. It appears somewhat larger than on prior PET-CT study. No other abnormal hypermetabolic uptake is appreciated. <Electronically signed by Aaron Harding > 06/07/21 [id number]
== END ==
LOC: M PLARAD 13:27
PROVIDERS: ATTEND Internal Medicine Medical Oncology
DX: C34.32 Malignant neoplasm of lower lobe, left bronchus or lung (principal)
CPT/HCPCS: 78815; A9552

== ENCOUNTER → 2021-08-29 | Outpatient (CLI) | payer MEDICARE, BC, OTHER ==
[~2021-08-29] MED LIST changes: -KLOR10TA76 PO; -KLOR20TA42 FT; -LISI2.5T2 PO; +LISI2.5T9 PO; +POTA-136 PO; +POTA-141 FT; +TREL1AER PO
--- NOTE | 2021-08-30 10:15 | REP ---
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 COMPARISON: Multiple prior PET-CT scans the latest 06/06/2021. Latest prior CT examination chest abdomen pelvis 05/16/2021. TECHNIQUE: After the intravenous administration of 9.15 mCi of FDG 18 triplane whole-body PET-CT was performed from the skull base to the mid thigh. FINDINGS: The pattern of activity seen previously in the head and neck is unchanged. Once again, there is a focus of hypermetabolic activity seen in the right breast region which is unchanged. The hypermetabolism seen previously in the left lung lower lobe and its concomitant opacity which previously measured 4.9 by 2.5 cm and having a maximal SUV value of 3.25 has increased in both size and degree of hypermetabolism today measuring approximately 5.5 x 3.0 cm and having a maximal SUV value of 5.33. Additionally, at that level between the left 7th and 8th ribs posteriorly there is a new focus of hypermetabolic activity with a maximal SUV value of 3.52. The additional areas of scattered hypermetabolism seen throughout the musculature and subcutaneous soft tissues is all stable. Numerous and scattered areas of hypermetabolism are seen in multiple ribs and multiple vertebral bodies having maximal rib SUV value of 3.30 and vertebral body SUV value of 4.44. Hypermetabolism is again seen scattered throughout the bony pelvis having a maximal SUV value of 4.88. No other areas of abnormal hypermetabolic activity are seen in the neck, chest, abdomen, or pelvis. IMPRESSION: 1. Lesional size and activity seen in the left lung mass lower lobe has increased as described above. 2. Hypermetabolic osseous uptake, as described above, which needs to be correlated clinically. Chemo reactive marrow change and or metastasis. 3. Other findings as described above. <Electronically signed by Abdirahman Moe > 08/30/21 [id number]
== END ==
LOC: M PLARAD 11:07
PROVIDERS: ATTEND Internal Medicine Medical Oncology
DX: R93.89 Abnormal findings on diagnostic imaging of other specified body structures (principal); C34.32 Malignant neoplasm of lower lobe, left bronchus or lung
CPT/HCPCS: 78815; A9552

== ENCOUNTER → 2021-11-04 | Outpatient (CLI) | payer MEDICARE, BC, OTHER ==
[~2021-11-04] MED LIST changes: -AMIO200T3; -AMIO200T3 PO; +AMIO200T49; +AMIO200T49 PO; -LISI-898; -LISI-898 PO; +LISI5TAB11; +LISI5TAB11 PO; +MAGICMW SSP
== END ==
LOC: M ONCR 10:13
PROVIDERS: ATTEND General Practice
DX: C34.32 Malignant neoplasm of lower lobe, left bronchus or lung (principal); Z87.891 Personal history of nicotine dependence; Z92.3 Personal history of irradiation; Z92.21 Personal history of antineoplastic chemotherapy; Z88.1 Allergy status to other antibiotic agents; Z79.899 Other long term (current) drug therapy

== ENCOUNTER → 2022-01-02 | Outpatient (CLI) | payer MEDICARE, BC, OTHER | LOC: M PLARAD 11:34 | PROVIDERS: ATTEND Internal Medicine Medical Oncology | DX: R93.89 Abnormal findings on diagnostic imaging of other specified body structures (principal); C34.32 Malignant neoplasm of lower lobe, left bronchus or lung | CPT/HCPCS: 78815; A9552 ==

== ENCOUNTER → 2022-03-10 | Outpatient (CLI) | payer MEDICARE, BC, OTHER ==
[~2022-03-10] MED LIST changes: +CEPH500C PO
== END ==
LOC: M ADAMS 14:43
PROVIDERS: ATTEND Internal Medicine Pulmonary Disease
DX: J44.9 Chronic obstructive pulmonary disease, unspecified (principal)

== ENCOUNTER → 2022-05-08 | Outpatient (CLI) | payer MEDICARE, BC, OTHER ==
[~2022-05-08] MED LIST changes: +ALBU2.5V10 NEB; +AMOX875T2 PO; +ATOR80TA59 PO; +BACT800T5 PO; +LOPR1TAB6 PO; +NITR-67 PO; +NITR100C2 PO; +POTA-151 PO
== END ==
LOC: M PLARAD 11:48
PROVIDERS: ATTEND Internal Medicine Medical Oncology
DX: R93.89 Abnormal findings on diagnostic imaging of other specified body structures (principal); C34.32 Malignant neoplasm of lower lobe, left bronchus or lung
CPT/HCPCS: 78815; A9552

== ENCOUNTER → 2022-07-19 | Outpatient (REF) | payer MEDICARE, OTHER ==
[~2022-07-19] MED LIST changes: +CRAN450T4 PO; +ONDA-84 PO; +PROC10TA5 PO
== END ==
LOC: M LAB REF 17:37
PROVIDERS: ATTEND Internal Medicine Nephrology
DX: N18.31 Chronic kidney disease, stage 3a (principal); R82.81 Pyuria

== ENCOUNTER → 2022-08-14 | Outpatient (CLI) | payer MEDICARE, BC, OTHER ==
[~2022-08-14] MED LIST changes: +ALLO100T
== END ==
LOC: M PLARAD 14:58
PROVIDERS: ATTEND Internal Medicine Medical Oncology
DX: C34.32 Malignant neoplasm of lower lobe, left bronchus or lung (principal)
CPT/HCPCS: 78815; A9552

== ENCOUNTER 2022-09-07 04:13 | Inpatient (IN) | payer MEDICARE, BC, OTHER ==
[~2022-09-07] VITALS: Ht 165.1 cm; Wt 102.3 kg
[~2022-09-07 04:13] MED LIST changes: -ALLO100T; +ALLO100T PO; +CEPH25SS PO
[2022-09-07] MEDS ORDERED: dexameTHASONE 20MG/5ML VIAL (J1100 PER 1MG) IV ONE (06:05)
[2022-09-07] MEDS: COMBIVENT RESPIMAT 100-20MCG INHALER 4GM INH SCH ×3 (06:19→09:09)
[2022-09-07 07:01] LABS: VENOUS PH 7.335 UNITS (7.330-7.430)
[2022-09-07 07:02] LABS: VENOUS BASE EXCESS -5.7 (-2.0-2.0); VENOUS HCO3 19.6 MEQ/L (23.0-27.0); VENOUS O2 SATURATION 91.8 % (60.0-80.0); VENOUS PARTIAL PRESSURE CO2 37.6 mmHg (38.0-50.0); VENOUS PARTIAL PRESSURE O2 71.3 mmHg (30.0-50.0); VENOUS STANDARD HCO3 19.6 MEQ/L; VENOUS TOTAL CO2 20.8 MEQ/L (24.0-28.0)
[2022-09-07 07:07] LABS: HEMOGLOBIN 7.7 g/dl (12.0-15.5); MEAN CORPUSCULAR HEMOGLOBIN 30.7 pg (27.0-33.0); MEAN CORPUSCULAR HGB CONC 30.8 g/dl (32.0-36.5); MEAN CORPUSCULAR VOLUME 99.6 fl (80.0-96.0); PLATELET COUNT, AUTOMATED 121 10^3/uL (150-450); RED BLOOD COUNT 2.51 10^6/uL (4.00-5.40); WHITE BLOOD COUNT 5.3 10^3/uL (4.0-10.0)
[2022-09-07 07:18] LABS: INR 1.1; PROTHROMBIN TIME 14.4 SECONDS (12.5-14.5)
[2022-09-07 07:41] LABS: CK-MB VALUE MASS 1.4 NG/ML (<3.6); MB/CK RELATIVE INDEX 3.33 (< OR =4)
[2022-09-07 07:49] LABS: ALBUMIN 2.8 GM/DL (3.2-5.2); BILIRUBIN,DIRECT 0.4 MG/DL (0.0-0.2); BILIRUBIN,TOTAL 1.1 MG/DL (0.2-1.0); CALCIUM LEVEL 7.4 MG/DL (8.8-10.2); CREATININE FOR GFR 1.34 MG/DL (0.55-1.30); GLOMERULAR FILTRATION RATE 40.6 (>39); POTASSIUM SERUM 4.6 MEQ/L (3.5-5.1); THYROID STIMULATING HORMONE 3.9 uIU/ML (0.358-3.740); TOTAL PROTEIN 5.3 GM/DL (6.4-8.2)
[2022-09-07] MEDS ORDERED: FUROSEMIDE 100MG/10ML VIAL (J1940) IV ONE (08:00)
[2022-09-07 08:21] LABS: ATYPICAL LYMPH 1 % (0-5); EOSINOPHILS 3 % (0-3); LYMPHOCYTES 5 % (16-44); METAMYELOCYTES 1 % (0-0); MONOCYTES 1 % (0-5); NEUTROPHILS 88 % (28-66)
[2022-09-07 08:22] LABS: ANISOCYTOSIS 4+; POLYCHROMASIA 2+
[2022-09-07 08:23] LABS: HYPOCHROMASIA 2+; SCHISTOCYTES 1+
[2022-09-07 08:24] LABS: PLATELET ESTIMATE DECREASED (NORMAL)
[2022-09-07] MEDS ORDERED: ACETAMINOPHEN TAB 650MG DOSE (2X325MG) PO PRN (08:30)
[2022-09-07] MEDS ORDERED: SPIRONOLACTONE 25 MG TAB PO SCH (09:00)
[2022-09-07] MEDS: cefTRIAXone SOD 2 GM in D5W MINI-BAG PLUS 50 ML IV SCH (10:03)
[2022-09-07] MEDS ORDERED: CEPH250T PO (10:11)
[2022-09-07] MEDS ORDERED: FOND10SO SC (10:11)
[2022-09-07] MEDS ORDERED: PROA1AER2 INH (10:11)
[2022-09-07] MEDS ORDERED: SLOW160T12 PO (10:11)
[2022-09-07] MEDS ORDERED: HOME MED LIST COMPLETE! XX SCH (10:40)
[2022-09-07] MEDS ORDERED: NITROGLYCERIN 0.4 MG SUBL TABLET SL PRN (10:45)
[2022-09-07] MEDS ORDERED: PROCHLORPERAZINE 5MG TAB PO PRN (10:45)
[2022-09-07] MEDS ORDERED: ONDANSETRON 4MG TAB PO PRN (10:45)
[2022-09-07] MEDS ORDERED: ALBUTEROL 90 MCG/ACT 8GM HFA INHALER INH PRN (10:55)
[2022-09-07] MEDS ORDERED: DOXYCYCLINE HYCLATE 100 MG in D5W MINI-BAG PLUS 100 ML IV SCH (11:00)
[2022-09-07] MEDS: LEVOTHYROXINE 75MCG TABLET (0.075MG) PO SCH (11:12)
[2022-09-07] MEDS: CLOPIDOGREL 75 MG TAB PO SCH (11:28)
[2022-09-07] MEDS: PANTOPRAZOLE 40MG TAB (PROTONIX) PO SCH (11:28)
[2022-09-07] MEDS ORDERED: IPRATROPIUM 0.5MG/ALBUTEROL 2.5MG INH SOL UD 3ML (DUONEB) NEB PRN (12:00)
[2022-09-07] MEDS ORDERED: ALBUTEROL 90 MCG/ACT 8GM HFA INHALER INH SCH (12:00)
[2022-09-07] MEDS: IPRATROPIUM 0.5MG/ALBUTEROL 2.5MG INH SOL UD 3ML (DUONEB) NEB SCH ×4 (12:00→23:39)
[2022-09-07 14:17] VITALS: BP 105/50
[2022-09-07] MEDS: METOPROLOL TART 25 MG TABLET PO SCH ×2 (14:49→20:35)
[2022-09-07 15:36] VITALS: BP 122/58
[2022-09-07] MEDS: predniSONE 20 MG TAB PO SCH (16:01)
[2022-09-07] MEDS: FUROSEMIDE 40MG/4ML VIAL (J1940) IV SCH (16:02)
[2022-09-07] MEDS ORDERED: FUROSEMIDE 40MG/4ML VIAL (J1940) IV SCH ×2 (17:00)
[2022-09-07 20:00] VITALS: BP 131/60
[2022-09-07] MEDS: MIRALAX *UNIT DOSE* 17GM PACKET PO SCH (20:34)
[2022-09-07] MEDS: ATORVASTATIN 20 MG TAB PO SCH (20:35)
[2022-09-07] MEDS: DOXYCYCLINE HYCLATE 100MG TABLET PO SCH (20:36)
[2022-09-07] MEDS: allopurinoL 100 MG TAB PO SCH (20:41)
[2022-09-08] VITALS (7 sets, daily range): BP systolic 106–129; BP diastolic 53–63
[2022-09-08] MEDS: FUROSEMIDE 40MG/4ML VIAL (J1940) IV SCH ×3 (01:13→17:24)
[2022-09-08] MEDS: IPRATROPIUM 0.5MG/ALBUTEROL 2.5MG INH SOL UD 3ML (DUONEB) NEB SCH ×6 (03:09→23:42)
[2022-09-08] MEDS: LEVOTHYROXINE 75MCG TABLET (0.075MG) PO SCH (05:22)
[2022-09-08 06:42] LABS: HEMATOCRIT 25.4 % (36.0-47.0); HEMOGLOBIN 7.7 g/dl (12.0-15.5); MEAN CORPUSCULAR HEMOGLOBIN 30.8 pg (27.0-33.0); MEAN CORPUSCULAR HGB CONC 30.3 g/dl (32.0-36.5); MEAN CORPUSCULAR VOLUME 101.6 fl (80.0-96.0); PLATELET COUNT, AUTOMATED 111 10^3/uL (150-450); WHITE BLOOD COUNT 7.4 10^3/uL (4.0-10.0)
[2022-09-08 06:57] LABS: INR 1.07; PROTHROMBIN TIME 14.1 SECONDS (12.5-14.5)
[2022-09-08 07:11] LABS: CALCIUM LEVEL 7.5 MG/DL (8.8-10.2); CREATININE FOR GFR 1.51 MG/DL (0.55-1.30); GLOMERULAR FILTRATION RATE 35.4 (>39); MAGNESIUM LEVEL 2.6 MG/DL (1.8-2.4); PHOSPHORUS LEVEL 4.7 MG/DL (2.5-4.9); POTASSIUM SERUM 5.4 MEQ/L (3.5-5.1)
[2022-09-08] MEDS ORDERED: FLUBLOK(EGG FREE)(QUAD)INFLUENZA VACC 0.5ML SYRINGE 18YRS & OLDER IM.IMMUN ONE (09:00)
[2022-09-08] MEDS ORDERED: predniSONE 10 MG TAB PO SCH (09:00)
[2022-09-08] MEDS ORDERED: FONDAPARINUX SODIUM 2.5 MG/0.5 ML SYR (J1652 PER 0.5MG) SC SCH (09:00)
[2022-09-08] MEDS: cefTRIAXone SOD 2 GM in D5W MINI-BAG PLUS 50 ML IV SCH (09:38)
[2022-09-08] MEDS: predniSONE 20 MG TAB PO SCH (09:39)
[2022-09-08] MEDS: MIRALAX *UNIT DOSE* 17GM PACKET PO SCH ×2 (09:40→20:55)
[2022-09-08] MEDS: METOPROLOL TART 25 MG TABLET PO SCH ×2 (09:40→20:56)
[2022-09-08] MEDS: PANTOPRAZOLE 40MG TAB (PROTONIX) PO SCH (09:40)
[2022-09-08] MEDS: CLOPIDOGREL 75 MG TAB PO SCH (09:40)
[2022-09-08] MEDS: DOXYCYCLINE HYCLATE 100MG TABLET PO SCH ×2 (09:40→20:55)
[2022-09-08] MEDS: FONDAPARINUX SODIUM 2.5 MG/0.5 ML SYR (J1652 PER 0.5MG) SC SCH (09:42)
[2022-09-08 11:31] LABS: CALCIUM LEVEL 7.3 MG/DL (8.8-10.2); CREATININE FOR GFR 1.5 MG/DL (0.55-1.30); GLOMERULAR FILTRATION RATE 35.7 (>39); POTASSIUM SERUM 5.1 MEQ/L (3.5-5.1)
[2022-09-08 17:08] LABS: MYCOPLASMA PNEUMONIAE IgG 140 U/mL (0-99); MYCOPLASMA PNEUMONIAE IgM 1005 U/mL (0-769)
[2022-09-08] MEDS: allopurinoL 100 MG TAB PO SCH (20:55)
[2022-09-08] MEDS: methylPREDNISolone 40MG 1ML VIAL IV SCH (20:55)
[2022-09-08] MEDS: ATORVASTATIN 20 MG TAB PO SCH (20:55)
[2022-09-09] VITALS (17 sets, daily range): BP systolic 111–129; BP diastolic 55–58; O2SAT 91–96
[2022-09-09] MEDS: FUROSEMIDE 40MG/4ML VIAL (J1940) IV SCH (01:46)
[2022-09-09] MEDS: IPRATROPIUM 0.5MG/ALBUTEROL 2.5MG INH SOL UD 3ML (DUONEB) NEB SCH ×6 (02:50→22:58)
[2022-09-09] MEDS: LEVOTHYROXINE 75MCG TABLET (0.075MG) PO SCH (05:47)
[2022-09-09 06:24] LABS: HEMATOCRIT 25.5 % (36.0-47.0); HEMOGLOBIN 7.6 g/dl (12.0-15.5); MEAN CORPUSCULAR HEMOGLOBIN 29.8 pg (27.0-33.0); MEAN CORPUSCULAR HGB CONC 29.8 g/dl (32.0-36.5); PLATELET COUNT, AUTOMATED 100 10^3/uL (150-450); RED BLOOD COUNT 2.55 10^6/uL (4.00-5.40); WHITE BLOOD COUNT 9.2 10^3/uL (4.0-10.0)
[2022-09-09 06:36] LABS: INR 1.05; PROTHROMBIN TIME 13.9 SECONDS (12.5-14.5)
[2022-09-09 06:48] LABS: CALCIUM LEVEL 7.5 MG/DL (8.8-10.2); CREATININE FOR GFR 1.39 MG/DL (0.55-1.30); GLOMERULAR FILTRATION RATE 38.9 (>39); POTASSIUM SERUM 5.6 MEQ/L (3.5-5.1)
[2022-09-09] MEDS: methylPREDNISolone 40MG 1ML VIAL IV SCH ×2 (08:44→20:08)
[2022-09-09] MEDS: FUROSEMIDE 100MG/10ML VIAL (J1940) IV SCH ×2 (08:44→17:29)
[2022-09-09] MEDS: MIRALAX *UNIT DOSE* 17GM PACKET PO SCH ×2 (08:45→20:07)
[2022-09-09] MEDS: guaiFENesin ER 600 MG TAB PO SCH ×2 (08:45→20:07)
[2022-09-09] MEDS: DOXYCYCLINE HYCLATE 100MG TABLET PO SCH ×2 (08:45→20:07)
[2022-09-09] MEDS: METOPROLOL TART 25 MG TABLET PO SCH ×2 (08:45→20:44)
[2022-09-09] MEDS: PANTOPRAZOLE 40MG TAB (PROTONIX) PO SCH (08:45)
[2022-09-09] MEDS: CLOPIDOGREL 75 MG TAB PO SCH (08:45)
[2022-09-09] MEDS: cefTRIAXone SOD 2 GM in D5W MINI-BAG PLUS 50 ML IV SCH (09:36)
[2022-09-09 16:08] LABS: CALCIUM LEVEL 7.3 MG/DL (8.8-10.2); CREATININE FOR GFR 1.35 MG/DL (0.55-1.30); GLOMERULAR FILTRATION RATE 40.3 (>39); POTASSIUM SERUM 5.7 MEQ/L (3.5-5.1)
[2022-09-09] MEDS ORDERED: SOD POLYSTYRENE SULFONATE SUSP 15GM 60ML UD PO ONE ×2 (16:40→22:00)
[2022-09-09] MEDS ORDERED: HumuLIN R (REGULAR) INSULIN (NovoLIN R) **100U/ML** PER UNIT IV STA (16:47)
[2022-09-09] MEDS ORDERED: DEXTROSE 50% 50 ML SYRINGE IV STA (16:47)
[2022-09-09] MEDS ORDERED: FUROSEMIDE 40MG/4ML VIAL (J1940) IV ONE (16:50)
[2022-09-09] MEDS ORDERED: CALCIUM GLUCONATE 1,000 MG in D5W MINI-BAG PLUS 100 ML IV ONE (16:50)
[2022-09-09] MEDS: ACETYLCYSTEINE 10% 30 ML VIAL INH SCH (20:00)
[2022-09-09] MEDS: ATORVASTATIN 20 MG TAB PO SCH (20:07)
[2022-09-09] MEDS: allopurinoL 100 MG TAB PO SCH (20:08)
[2022-09-09 20:33] LABS: CALCIUM LEVEL 7.6 MG/DL (8.8-10.2); CREATININE FOR GFR 1.42 MG/DL (0.55-1.30); POTASSIUM SERUM 5.4 MEQ/L (3.5-5.1)
[2022-09-10] VITALS (22 sets, daily range): BP systolic 97–130; BP diastolic 59–66; O2SAT 94–100
[2022-09-10] MEDS: FUROSEMIDE 100MG/10ML VIAL (J1940) IV SCH ×4 (00:10→21:18)
[2022-09-10] MEDS: IPRATROPIUM 0.5MG/ALBUTEROL 2.5MG INH SOL UD 3ML (DUONEB) NEB SCH ×5 (03:03→20:24)
[2022-09-10] MEDS: LEVOTHYROXINE 75MCG TABLET (0.075MG) PO SCH (05:37)
[2022-09-10 06:27] LABS: HEMATOCRIT 24.2 % (36.0-47.0); HEMOGLOBIN 7.4 g/dl (12.0-15.5); MEAN CORPUSCULAR HEMOGLOBIN 30.6 pg (27.0-33.0); MEAN CORPUSCULAR HGB CONC 30.6 g/dl (32.0-36.5); RED BLOOD COUNT 2.42 10^6/uL (4.00-5.40); WHITE BLOOD COUNT 5.8 10^3/uL (4.0-10.0)
[2022-09-10 06:54] LABS: CALCIUM LEVEL 7.1 MG/DL (8.8-10.2); CREATININE FOR GFR 1.4 MG/DL (0.55-1.30); GLOMERULAR FILTRATION RATE 38.6 (>39); MAGNESIUM LEVEL 2.5 MG/DL (1.8-2.4); POTASSIUM SERUM 5.1 MEQ/L (3.5-5.1)
[2022-09-10] MEDS ORDERED: BISACODYL 10 MG SUPP PR ONE (07:00)
[2022-09-10 07:28] LABS: PLATELET COUNT, AUTOMATED 70 10^3/uL (150-450)
[2022-09-10] MEDS: ACETYLCYSTEINE 10% 30 ML VIAL INH SCH ×2 (07:34→20:24)
[2022-09-10] MEDS: MIRALAX *UNIT DOSE* 17GM PACKET PO SCH ×2 (09:00→21:00)
[2022-09-10] MEDS: CLOPIDOGREL 75 MG TAB PO SCH (09:32)
[2022-09-10] MEDS: PANTOPRAZOLE 40MG TAB (PROTONIX) PO SCH (09:32)
[2022-09-10] MEDS: guaiFENesin ER 600 MG TAB PO SCH ×2 (09:32→21:17)
[2022-09-10] MEDS: DOXYCYCLINE HYCLATE 100MG TABLET PO SCH ×2 (09:32→21:17)
[2022-09-10] MEDS: METOPROLOL TART 25 MG TABLET PO SCH ×2 (09:33→21:24)
[2022-09-10] MEDS: methylPREDNISolone 40MG 1ML VIAL IV SCH ×3 (09:33→21:16)
[2022-09-10] MEDS: FONDAPARINUX SODIUM 2.5 MG/0.5 ML SYR (J1652 PER 0.5MG) SC SCH (09:34)
[2022-09-10 10:18] LABS: INR 1.09; PROTHROMBIN TIME 14.3 SECONDS (12.5-14.5)
[2022-09-10] MEDS: cefTRIAXone SOD 2 GM in D5W MINI-BAG PLUS 50 ML IV SCH (12:38)
[2022-09-10] MEDS ORDERED: THIAMINE INJection 500 MG in NS 100 ML IV ONE (16:00)
[2022-09-10] MEDS: allopurinoL 100 MG TAB PO SCH (21:17)
[2022-09-10] MEDS: ATORVASTATIN 20 MG TAB PO SCH (21:17)
[2022-09-11] VITALS (17 sets, daily range): BP systolic 112–127; BP diastolic 55–63; O2SAT 91–99
[2022-09-11] MEDS: IPRATROPIUM 0.5MG/ALBUTEROL 2.5MG INH SOL UD 3ML (DUONEB) NEB SCH ×6 (00:10→20:25)
[2022-09-11] MEDS: methylPREDNISolone 40MG 1ML VIAL IV SCH ×4 (03:40→20:46)
[2022-09-11] MEDS: FUROSEMIDE 100MG/10ML VIAL (J1940) IV SCH ×3 (03:40→18:33)
[2022-09-11] MEDS: LEVOTHYROXINE 75MCG TABLET (0.075MG) PO SCH (06:04)
[2022-09-11 07:25] LABS: HEMATOCRIT 24.2 % (36.0-47.0); HEMOGLOBIN 7.2 g/dl (12.0-15.5); MEAN CORPUSCULAR HEMOGLOBIN 30.6 pg (27.0-33.0); MEAN CORPUSCULAR HGB CONC 29.8 g/dl (32.0-36.5); RED BLOOD COUNT 2.35 10^6/uL (4.00-5.40); WHITE BLOOD COUNT 2.4 10^3/uL (4.0-10.0)
[2022-09-11 07:29] LABS: PLATELET COUNT, AUTOMATED 45 10^3/uL (150-450)
[2022-09-11] MEDS: PANTOPRAZOLE 40MG TAB (PROTONIX) PO SCH (07:55)
[2022-09-11] MEDS: CLOPIDOGREL 75 MG TAB PO SCH (07:55)
[2022-09-11] MEDS: DOXYCYCLINE HYCLATE 100MG TABLET PO SCH ×2 (07:55→20:46)
[2022-09-11] MEDS: guaiFENesin ER 600 MG TAB PO SCH ×2 (07:55→20:46)
[2022-09-11] MEDS: MIRALAX *UNIT DOSE* 17GM PACKET PO SCH ×2 (07:56→20:46)
[2022-09-11] MEDS: METOPROLOL TART 25 MG TABLET PO SCH ×2 (07:56→20:47)
[2022-09-11 07:57] LABS: CALCIUM LEVEL 7.7 MG/DL (8.8-10.2); CREATININE FOR GFR 1.38 MG/DL (0.55-1.30); GLOMERULAR FILTRATION RATE 39.3 (>39); MAGNESIUM LEVEL 2.6 MG/DL (1.8-2.4); PHOSPHORUS LEVEL 4.9 MG/DL (2.5-4.9); POTASSIUM SERUM 4.8 MEQ/L (3.5-5.1)
[2022-09-11] MEDS: ACETYLCYSTEINE 10% 30 ML VIAL INH SCH ×2 (08:49→20:25)
[2022-09-11] MEDS: cefTRIAXone SOD 2 GM in D5W MINI-BAG PLUS 50 ML IV SCH (10:58)
[2022-09-11 17:07] LABS: BODY FLUID CULTURE Not indicated. (.); ORGANISM ID Not indicated. (.); SPECIMEN SOURCE Urine (.); URINE STREP PNEUMONIAE ANTIGEN Negative (Negative)
[2022-09-11] MEDS: allopurinoL 100 MG TAB PO SCH (20:46)
[2022-09-11] MEDS: ATORVASTATIN 20 MG TAB PO SCH (20:46)
[2022-09-12] VITALS (23 sets, daily range): BP systolic 114–128; BP diastolic 56–61; O2SAT 92–100
[2022-09-12] MEDS: methylPREDNISolone 40MG 1ML VIAL IV SCH (03:37)
[2022-09-12] MEDS: FUROSEMIDE 100MG/10ML VIAL (J1940) IV SCH (03:37)
[2022-09-12] MEDS: IPRATROPIUM 0.5MG/ALBUTEROL 2.5MG INH SOL UD 3ML (DUONEB) NEB SCH ×7 (04:17→23:22)
[2022-09-12] MEDS: LEVOTHYROXINE 75MCG TABLET (0.075MG) PO SCH (06:00)
[2022-09-12 06:52] LABS: HEMATOCRIT 21.9 % (36.0-47.0); MEAN CORPUSCULAR HEMOGLOBIN 30.5 pg (27.0-33.0); MEAN CORPUSCULAR HGB CONC 31.5 g/dl (32.0-36.5); MEAN CORPUSCULAR VOLUME 96.9 fl (80.0-96.0); RED BLOOD COUNT 2.26 10^6/uL (4.00-5.40); WHITE BLOOD COUNT 2.2 10^3/uL (4.0-10.0)
[2022-09-12 06:54] LABS: PLATELET COUNT, AUTOMATED 34 10^3/uL (150-450)
[2022-09-12 06:57] LABS: HEMOGLOBIN 6.9 g/dl (12.0-15.5)
[2022-09-12 07:42] LABS: CALCIUM LEVEL 7.1 MG/DL (8.8-10.2); CREATININE FOR GFR 1.44 MG/DL (0.55-1.30); GLOMERULAR FILTRATION RATE 37.4 (>39); MAGNESIUM LEVEL 2.5 MG/DL (1.8-2.4); PHOSPHORUS LEVEL 4.6 MG/DL (2.5-4.9); POTASSIUM SERUM 4.6 MEQ/L (3.5-5.1)
[2022-09-12] MEDS: CLOPIDOGREL 75 MG TAB PO SCH (08:20)
[2022-09-12] MEDS: DOXYCYCLINE HYCLATE 100MG TABLET PO SCH ×2 (08:20→21:01)
[2022-09-12] MEDS: PANTOPRAZOLE 40MG TAB (PROTONIX) PO SCH (08:20)
[2022-09-12] MEDS: guaiFENesin ER 600 MG TAB PO SCH ×2 (08:20→21:01)
[2022-09-12] MEDS: MIRALAX *UNIT DOSE* 17GM PACKET PO SCH ×2 (08:21→21:00)
[2022-09-12] MEDS: METOPROLOL TART 25 MG TABLET PO SCH ×2 (08:21→21:01)
[2022-09-12] MEDS: ACETYLCYSTEINE 10% 30 ML VIAL INH SCH (08:25)
[2022-09-12] MEDS ORDERED: predniSONE 20 MG TAB PO SCH (09:00)
[2022-09-12] MEDS ORDERED: methylPREDNISolone 40MG 1ML VIAL IV SCH (09:00)
[2022-09-12 09:12] LABS: LYMPHOCYTES 10 % (16-44); NEUTROPHILS 89 % (28-66)
[2022-09-12 09:13] LABS: HYPOCHROMASIA 3+
[2022-09-12 09:16] LABS: ANISOCYTOSIS 2+; PLATELET ESTIMATE MARKED DECREASE (NORMAL); POLYCHROMASIA 1+
[2022-09-12 09:20] LABS: SCHISTOCYTES 1+
[2022-09-12 09:45] LABS: PERCENT SATURATION 27.6 % (13.2-45.0)
[2022-09-12] MEDS: cefTRIAXone SOD 2 GM in D5W MINI-BAG PLUS 50 ML IV SCH (09:45)
[2022-09-12] MEDS: FUROSEMIDE injection 250 MG in D5W 225 ML IV SCH ×2 (12:58→23:30)
[2022-09-12 15:07] LABS: CHLAMYDIA PNEUMONIAE IgG <1:16 (Neg:<1:16); CHLAMYDIA PNEUMONIAE IgM <1:10 (Neg:<1:10)
[2022-09-12 15:13] LABS: HEMOGLOBIN 8.3 g/dl (12.0-15.5)
[2022-09-12] MEDS: ACETYLCYSTEINE 20% 4 ML VIAL (200MG/ML) INH SCH (19:19)
[2022-09-12] MEDS: ATORVASTATIN 20 MG TAB PO SCH (21:01)
[2022-09-12] MEDS: allopurinoL 100 MG TAB PO SCH (21:04)
[2022-09-12] MEDS ORDERED: methylPREDNISolone 40MG 1ML VIAL IV ONE (22:00)
[2022-09-13] VITALS (15 sets, daily range): BP systolic 110–122; BP diastolic 54–64; O2SAT 91–100
[2022-09-13] MEDS: IPRATROPIUM 0.5MG/ALBUTEROL 2.5MG INH SOL UD 3ML (DUONEB) NEB SCH ×6 (03:10→23:00)
[2022-09-13] MEDS: LEVOTHYROXINE 75MCG TABLET (0.075MG) PO SCH (05:58)
[2022-09-13 06:09] LABS: HEMOGLOBIN 7.9 g/dl (12.0-15.5); MEAN CORPUSCULAR HEMOGLOBIN 30.5 pg (27.0-33.0); MEAN CORPUSCULAR HGB CONC 31.6 g/dl (32.0-36.5); MEAN CORPUSCULAR VOLUME 96.5 fl (80.0-96.0); RED BLOOD COUNT 2.59 10^6/uL (4.00-5.40); WHITE BLOOD COUNT 3.1 10^3/uL (4.0-10.0)
[2022-09-13 06:10] LABS: PLATELET COUNT, AUTOMATED 32 10^3/uL (150-450)
[2022-09-13 06:34] LABS: CALCIUM LEVEL 6.8 MG/DL (8.8-10.2); CREATININE FOR GFR 1.51 MG/DL (0.55-1.30); GLOMERULAR FILTRATION RATE 35.4 (>39); POTASSIUM SERUM 4.1 MEQ/L (3.5-5.1)
[2022-09-13] MEDS: PANTOPRAZOLE 40MG TAB (PROTONIX) PO SCH (07:53)
[2022-09-13] MEDS: CLOPIDOGREL 75 MG TAB PO SCH (07:53)
[2022-09-13] MEDS: guaiFENesin ER 600 MG TAB PO SCH ×2 (07:53→20:17)
[2022-09-13] MEDS: DOXYCYCLINE HYCLATE 100MG TABLET PO SCH ×2 (07:53→20:17)
[2022-09-13] MEDS: METOPROLOL TART 25 MG TABLET PO SCH ×2 (07:54→20:18)
[2022-09-13] MEDS: MIRALAX *UNIT DOSE* 17GM PACKET PO SCH ×2 (07:54→20:18)
[2022-09-13 09:14] LABS: LYMPHOCYTES 9 % (16-44); NEUTROPHILS 91 % (28-66)
[2022-09-13 09:15] LABS: ANISOCYTOSIS 1+; PLATELET ESTIMATE MARKED DECREASE (NORMAL)
[2022-09-13 09:16] LABS: CRENATED RBC 1+; HYPOCHROMASIA 1+; OVALOCYTES 1+; POIKILOCYTOSIS 1+
[2022-09-13] MEDS: predniSONE 20 MG TAB PO SCH (10:01)
[2022-09-13] MEDS: cefTRIAXone SOD 2 GM in D5W MINI-BAG PLUS 50 ML IV SCH (10:09)
[2022-09-13] MEDS: FUROSEMIDE injection 250 MG in D5W 225 ML IV SCH ×2 (11:18→23:30)
[2022-09-13] MEDS: ACETYLCYSTEINE 20% 4 ML VIAL (200MG/ML) INH SCH ×2 (11:18→19:46)
[2022-09-13] MEDS: ATORVASTATIN 20 MG TAB PO SCH (20:17)
[2022-09-13] MEDS: allopurinoL 100 MG TAB PO SCH (20:17)
[2022-09-14] VITALS (17 sets, daily range): BP systolic 103–118; BP diastolic 52–68; O2SAT 86–100
[2022-09-14] MEDS: IPRATROPIUM 0.5MG/ALBUTEROL 2.5MG INH SOL UD 3ML (DUONEB) NEB SCH ×6 (03:26→23:28)
[2022-09-14] MEDS: LEVOTHYROXINE 75MCG TABLET (0.075MG) PO SCH (05:03)
[2022-09-14 05:40] LABS: BASO % 0.3 % (0.0-1.0); EOS % 0.8 % (0.0-3.0); LYMPH # 0.2 10^3/uL (1.5-5.0); LYMPH % 4.1 % (24.0-44.0); MEAN CORPUSCULAR HEMOGLOBIN 30.5 pg (27.0-33.0); MEAN CORPUSCULAR VOLUME 95.4 fl (80.0-96.0); MONO # 0.2 10^3/uL (0.0-0.8); MONO % 4.4 % (2.0-8.0); NEUTROPHILS # 3.2 10^3/uL (1.5-8.5); NEUTROPHILS % 86.6 % (36.0-66.0); PLATELET COUNT, AUTOMATED 44 10^3/uL (150-450); RED BLOOD COUNT 2.62 10^6/uL (4.00-5.40); WHITE BLOOD COUNT 3.7 10^3/uL (4.0-10.0)
[2022-09-14 06:11] LABS: CALCIUM LEVEL 6.9 MG/DL (8.8-10.2); CREATININE FOR GFR 1.28 MG/DL (0.55-1.30); GLOMERULAR FILTRATION RATE 42.8 (>39); POTASSIUM SERUM 3.6 MEQ/L (3.5-5.1)
[2022-09-14] MEDS ORDERED: POTASSIUM CHLORIDE 10MEQ SR TABLET PO ONE (06:45)
[2022-09-14] MEDS: ACETYLCYSTEINE 20% 4 ML VIAL (200MG/ML) INH SCH ×2 (08:37→20:35)
[2022-09-14] MEDS: MIRALAX *UNIT DOSE* 17GM PACKET PO SCH ×3 (09:00→20:04)
[2022-09-14] MEDS: METOPROLOL TART 25 MG TABLET PO SCH ×2 (09:45→20:06)
[2022-09-14] MEDS: predniSONE 20 MG TAB PO SCH (09:45)
[2022-09-14] MEDS: PANTOPRAZOLE 40MG TAB (PROTONIX) PO SCH (09:45)
[2022-09-14] MEDS: CLOPIDOGREL 75 MG TAB PO SCH (09:46)
[2022-09-14] MEDS: guaiFENesin ER 600 MG TAB PO SCH ×2 (09:46→20:06)
[2022-09-14 10:16] LABS: MAGNESIUM LEVEL 2.4 MG/DL (1.8-2.4)
[2022-09-14] MEDS: FUROSEMIDE injection 250 MG in D5W 225 ML IV SCH ×2 (11:50→23:41)
[2022-09-14] MEDS: FONDAPARINUX SODIUM 2.5 MG/0.5 ML SYR (J1652 PER 0.5MG) SC SCH ×2 (13:04→14:19)
[2022-09-14 19:18] LABS: FOLATE 3.2 NG/ML (>5.4)
[2022-09-14] MEDS: ATORVASTATIN 20 MG TAB PO SCH (20:05)
[2022-09-14] MEDS: allopurinoL 100 MG TAB PO SCH (20:06)
[2022-09-15] VITALS (12 sets, daily range): BP systolic 116–131; BP diastolic 54–61; O2SAT 91–96
[2022-09-15] MEDS: IPRATROPIUM 0.5MG/ALBUTEROL 2.5MG INH SOL UD 3ML (DUONEB) NEB SCH ×6 (03:46→23:19)
[2022-09-15 05:43] LABS: EOS # 0.1 10^3/uL (0.0-0.5); EOS % 1.2 % (0.0-3.0); HEMATOCRIT 25.7 % (36.0-47.0); HEMOGLOBIN 7.9 g/dl (12.0-15.5); LYMPH # 0.3 10^3/uL (1.5-5.0); LYMPH % 5.8 % (24.0-44.0); MEAN CORPUSCULAR HEMOGLOBIN 29.8 pg (27.0-33.0); MEAN CORPUSCULAR HGB CONC 30.7 g/dl (32.0-36.5); MONO # 0.2 10^3/uL (0.0-0.8); MONO % 4.6 % (2.0-8.0); NEUTROPHILS # 3.6 10^3/uL (1.5-8.5); NEUTROPHILS % 84.2 % (36.0-66.0); RED BLOOD COUNT 2.65 10^6/uL (4.00-5.40); WHITE BLOOD COUNT 4.3 10^3/uL (4.0-10.0)
[2022-09-15 05:46] LABS: PLATELET COUNT, AUTOMATED 82 10^3/uL (150-450)
[2022-09-15] MEDS: LEVOTHYROXINE 75MCG TABLET (0.075MG) PO SCH (05:51)
[2022-09-15 06:16] LABS: CALCIUM LEVEL 6.6 MG/DL (8.8-10.2); CREATININE FOR GFR 1.34 MG/DL (0.55-1.30); GLOMERULAR FILTRATION RATE 40.6 (>39); POTASSIUM SERUM 3.9 MEQ/L (3.5-5.1)
[2022-09-15] MEDS: ACETYLCYSTEINE 20% 4 ML VIAL (200MG/ML) INH SCH ×2 (08:00→19:30)
[2022-09-15] MEDS: FOLIC ACID 1MG TAB PO SCH (08:13)
[2022-09-15] MEDS: CLOPIDOGREL 75 MG TAB PO SCH (08:13)
[2022-09-15] MEDS: PANTOPRAZOLE 40MG TAB (PROTONIX) PO SCH (08:13)
[2022-09-15] MEDS: guaiFENesin ER 600 MG TAB PO SCH ×2 (08:13→21:11)
[2022-09-15] MEDS: METOPROLOL TART 25 MG TABLET PO SCH ×2 (08:14→21:13)
[2022-09-15] MEDS: MIRALAX *UNIT DOSE* 17GM PACKET PO SCH ×2 (08:15→21:00)
[2022-09-15] MEDS: BUMETANIDE 1 MG TAB PO SCH ×2 (09:05→21:11)
[2022-09-15] MEDS: allopurinoL 100 MG TAB PO SCH (21:11)
[2022-09-15] MEDS: ATORVASTATIN 20 MG TAB PO SCH (21:11)
[2022-09-16] VITALS (14 sets, daily range): BP systolic 111–135; BP diastolic 53–60; O2SAT 89–95
[2022-09-16] MEDS: IPRATROPIUM 0.5MG/ALBUTEROL 2.5MG INH SOL UD 3ML (DUONEB) NEB SCH ×6 (01:13→23:54)
[2022-09-16] MEDS: LEVOTHYROXINE 75MCG TABLET (0.075MG) PO SCH (05:47)
[2022-09-16 07:04] LABS: CREATININE FOR GFR 1.04 MG/DL (0.55-1.30); GLOMERULAR FILTRATION RATE 54.4 (>39); POTASSIUM SERUM 3.7 MEQ/L (3.5-5.1)
[2022-09-16] MEDS: ACETYLCYSTEINE 20% 4 ML VIAL (200MG/ML) INH SCH (07:32)
[2022-09-16] MEDS: PANTOPRAZOLE 40MG TAB (PROTONIX) PO SCH (07:54)
[2022-09-16] MEDS: METOPROLOL TART 25 MG TABLET PO SCH ×2 (07:55→20:50)
[2022-09-16] MEDS: FOLIC ACID 1MG TAB PO SCH (07:55)
[2022-09-16] MEDS: guaiFENesin ER 600 MG TAB PO SCH ×2 (07:55→20:51)
[2022-09-16] MEDS: CLOPIDOGREL 75 MG TAB PO SCH (07:55)
[2022-09-16] MEDS: BUMETANIDE 1 MG TAB PO SCH (07:55)
[2022-09-16] MEDS: MIRALAX *UNIT DOSE* 17GM PACKET PO SCH ×2 (07:56→20:51)
[2022-09-16 08:00] LABS: BASO % 0.4 % (0.0-1.0); EOS # 0.1 10^3/uL (0.0-0.5); HEMATOCRIT 26.3 % (36.0-47.0); HEMOGLOBIN 8.3 g/dl (12.0-15.5); LYMPH # 0.2 10^3/uL (1.5-5.0); LYMPH % 4.6 % (24.0-44.0); MEAN CORPUSCULAR HEMOGLOBIN 30.1 pg (27.0-33.0); MEAN CORPUSCULAR HGB CONC 31.6 g/dl (32.0-36.5); MEAN CORPUSCULAR VOLUME 95.3 fl (80.0-96.0); MONO # 0.2 10^3/uL (0.0-0.8); MONO % 4.2 % (2.0-8.0); NEUTROPHILS # 4.2 10^3/uL (1.5-8.5); RED BLOOD COUNT 2.76 10^6/uL (4.00-5.40)
[2022-09-16] MEDS ORDERED: POTASSIUM CHLORIDE 10MEQ SR TABLET PO ONE ×2 (09:00→15:00)
[2022-09-16] MEDS: FONDAPARINUX SODIUM 2.5 MG/0.5 ML SYR (J1652 PER 0.5MG) SC SCH (09:31)
[2022-09-16] MEDS: FUROSEMIDE 100MG/10ML VIAL (J1940) IV SCH ×2 (13:10→20:48)
[2022-09-16] MEDS: SYMBICORT 80/4.5MCG INHALER 6GM INH SCH (20:35)
[2022-09-16] MEDS: ATORVASTATIN 20 MG TAB PO SCH (20:48)
[2022-09-16] MEDS: NYSTATIN 100,000 UNITS/GM TOPICAL PWD 15 GM TOP SCH (20:48)
[2022-09-16] MEDS: allopurinoL 100 MG TAB PO SCH (20:52)
[2022-09-17] VITALS (14 sets, daily range): BP systolic 110–132; BP diastolic 57–60; O2SAT 89–95
[2022-09-17] MEDS: IPRATROPIUM 0.5MG/ALBUTEROL 2.5MG INH SOL UD 3ML (DUONEB) NEB SCH ×6 (03:21→23:33)
[2022-09-17 04:59] LABS: BASO % 0.2 % (0.0-1.0); EOS # 0.1 10^3/uL (0.0-0.5); EOS % 1.8 % (0.0-3.0); HEMATOCRIT 26.9 % (36.0-47.0); HEMOGLOBIN 8.3 g/dl (12.0-15.5); LYMPH # 0.2 10^3/uL (1.5-5.0); LYMPH % 3.6 % (24.0-44.0); MEAN CORPUSCULAR HEMOGLOBIN 30.4 pg (27.0-33.0); MEAN CORPUSCULAR HGB CONC 30.9 g/dl (32.0-36.5); MEAN CORPUSCULAR VOLUME 98.5 fl (80.0-96.0); MONO # 0.3 10^3/uL (0.0-0.8); MONO % 6.1 % (2.0-8.0); NEUTROPHILS # 4.6 10^3/uL (1.5-8.5); NEUTROPHILS % 81.7 % (36.0-66.0); PLATELET COUNT, AUTOMATED 147 10^3/uL (150-450); RED BLOOD COUNT 2.73 10^6/uL (4.00-5.40); WHITE BLOOD COUNT 5.6 10^3/uL (4.0-10.0)
[2022-09-17 05:34] LABS: ALBUMIN 2.8 GM/DL (3.2-5.2); CALCIUM LEVEL 6.7 MG/DL (8.8-10.2); CREATININE FOR GFR 1.18 MG/DL (0.55-1.30); PHOSPHORUS LEVEL 2.3 MG/DL (2.5-4.9); POTASSIUM SERUM 3.9 MEQ/L (3.5-5.1)
[2022-09-17] MEDS: FUROSEMIDE 100MG/10ML VIAL (J1940) IV SCH (05:43)
[2022-09-17] MEDS: LEVOTHYROXINE 75MCG TABLET (0.075MG) PO SCH (05:43)
[2022-09-17] MEDS: SYMBICORT 80/4.5MCG INHALER 6GM INH SCH ×2 (07:19→20:29)
[2022-09-17] MEDS: PANTOPRAZOLE 40MG TAB (PROTONIX) PO SCH (08:36)
[2022-09-17] MEDS: guaiFENesin ER 600 MG TAB PO SCH ×2 (08:36→21:35)
[2022-09-17] MEDS: MIRALAX *UNIT DOSE* 17GM PACKET PO SCH ×2 (08:37→21:00)
[2022-09-17] MEDS: METOPROLOL TART 25 MG TABLET PO SCH ×2 (08:37→21:00)
[2022-09-17] MEDS: NYSTATIN 100,000 UNITS/GM TOPICAL PWD 15 GM TOP SCH ×2 (08:37→21:35)
[2022-09-17] MEDS: FOLIC ACID 1MG TAB PO SCH (08:37)
[2022-09-17] MEDS: CLOPIDOGREL 75 MG TAB PO SCH (08:37)
[2022-09-17] MEDS: FUROSEMIDE injection 250 MG in D5W 225 ML IV SCH (13:53)
[2022-09-17] MEDS ORDERED: POTASSIUM CHLORIDE 10MEQ SR TABLET PO ONE (15:00)
[2022-09-17] MEDS ORDERED: K-PHOS NEUTRAL 250MG TABLET (SOD.PHOSPHATE/POT.PHOSPHATE) PO ONE (15:00)
[2022-09-17] MEDS: CALCIUM CARBONATE 500 MG CHEW U/D PO SCH ×2 (16:26→21:35)
[2022-09-17] MEDS: ATORVASTATIN 20 MG TAB PO SCH (21:35)
[2022-09-17] MEDS: allopurinoL 100 MG TAB PO SCH (21:35)
[2022-09-18] VITALS (7 sets, daily range): BP systolic 102–134; BP diastolic 52–62; O2SAT 93–94
[2022-09-18] MEDS: FUROSEMIDE injection 250 MG in D5W 225 ML IV SCH ×3 (01:58→23:44)
[2022-09-18] MEDS: IPRATROPIUM 0.5MG/ALBUTEROL 2.5MG INH SOL UD 3ML (DUONEB) NEB SCH ×5 (03:32→20:18)
[2022-09-18] MEDS: LEVOTHYROXINE 75MCG TABLET (0.075MG) PO SCH (05:53)
[2022-09-18 06:09] LABS: HEMATOCRIT 25.8 % (36.0-47.0); HEMOGLOBIN 8.1 g/dl (12.0-15.5); MEAN CORPUSCULAR HEMOGLOBIN 30.7 pg (27.0-33.0); MEAN CORPUSCULAR HGB CONC 31.4 g/dl (32.0-36.5); MEAN CORPUSCULAR VOLUME 97.7 fl (80.0-96.0); PLATELET COUNT, AUTOMATED 163 10^3/uL (150-450); RED BLOOD COUNT 2.64 10^6/uL (4.00-5.40); WHITE BLOOD COUNT 5.4 10^3/uL (4.0-10.0)
[2022-09-18 06:52] LABS: CALCIUM LEVEL 6.8 MG/DL (8.8-10.2); CREATININE FOR GFR 1.17 MG/DL (0.55-1.30); GLOMERULAR FILTRATION RATE 47.5 (>39); MAGNESIUM LEVEL 2.1 MG/DL (1.8-2.4)
[2022-09-18 07:26] LABS: ATYPICAL LYMPH 3 % (0-5); BASOPHILS 3 % (0-1); LYMPHOCYTES 2 % (16-44); METAMYELOCYTES 2 % (0-0); MONOCYTES 12 % (0-5); MYELOCYTES 2 % (0-0); NEUTROPHILS 72 % (28-66); NUCLEATED RED BLOOD CELL 8 % (0-0)
[2022-09-18 07:27] LABS: ANISOCYTOSIS 4+; POLYCHROMASIA 1+
[2022-09-18 07:29] LABS: HYPOCHROMASIA 1+; TEAR DROP CELLS 1+
[2022-09-18 07:32] LABS: SCHISTOCYTES 1+
[2022-09-18 07:33] LABS: PLATELET ESTIMATE NORMAL (NORMAL)
[2022-09-18] MEDS: SYMBICORT 80/4.5MCG INHALER 6GM INH SCH ×2 (07:35→20:19)
[2022-09-18] MEDS: guaiFENesin ER 600 MG TAB PO SCH ×2 (08:07→21:24)
[2022-09-18] MEDS: CALCIUM CARBONATE 500 MG CHEW U/D PO SCH (08:07)
[2022-09-18] MEDS: PANTOPRAZOLE 40MG TAB (PROTONIX) PO SCH (08:07)
[2022-09-18] MEDS: METOPROLOL TART 25 MG TABLET PO SCH ×2 (08:07→21:00)
[2022-09-18] MEDS: MIRALAX *UNIT DOSE* 17GM PACKET PO SCH ×2 (08:08→21:00)
[2022-09-18] MEDS: NYSTATIN 100,000 UNITS/GM TOPICAL PWD 15 GM TOP SCH ×2 (08:08→21:25)
[2022-09-18] MEDS: FOLIC ACID 1MG TAB PO SCH (08:08)
[2022-09-18] MEDS: CLOPIDOGREL 75 MG TAB PO SCH (08:08)
[2022-09-18] MEDS: FONDAPARINUX SODIUM 2.5 MG/0.5 ML SYR (J1652 PER 0.5MG) SC SCH (08:09)
[2022-09-18] MEDS ORDERED: metOLazone 2.5 MG TAB PO ONE (09:10)
[2022-09-18] MEDS: POTASSIUM CHLORIDE 10MEQ SR TABLET PO SCH ×2 (10:13→21:25)
[2022-09-18] MEDS: allopurinoL 100 MG TAB PO SCH (21:24)
[2022-09-18] MEDS: ATORVASTATIN 20 MG TAB PO SCH (21:25)
[2022-09-19] VITALS (12 sets, daily range): BP systolic 100–140; BP diastolic 51–78; PULSE 160
[2022-09-19] MEDS: IPRATROPIUM 0.5MG/ALBUTEROL 2.5MG INH SOL UD 3ML (DUONEB) NEB SCH ×6 (04:33→20:00)
[2022-09-19] MEDS: LEVOTHYROXINE 75MCG TABLET (0.075MG) PO SCH (05:50)
[2022-09-19] MEDS: FUROSEMIDE injection 250 MG in D5W 225 ML IV SCH ×3 (05:54→22:02)
[2022-09-19 05:56] LABS: HEMATOCRIT 27.2 % (36.0-47.0); HEMOGLOBIN 8.2 g/dl (12.0-15.5); MEAN CORPUSCULAR HGB CONC 30.1 g/dl (32.0-36.5); MEAN CORPUSCULAR VOLUME 99.6 fl (80.0-96.0); PLATELET COUNT, AUTOMATED 190 10^3/uL (150-450); RED BLOOD COUNT 2.73 10^6/uL (4.00-5.40); WHITE BLOOD COUNT 6.1 10^3/uL (4.0-10.0)
[2022-09-19 06:33] LABS: CREATININE FOR GFR 1.32 MG/DL (0.55-1.30); GLOMERULAR FILTRATION RATE 41.3 (>39)
[2022-09-19 06:40] LABS: ANISOCYTOSIS 4+; BASOPHILS 1 % (0-1); EOSINOPHILS 3 % (0-3); LYMPHOCYTES 5 % (16-44); METAMYELOCYTES 2 % (0-0); MONOCYTES 15 % (0-5); NEUTROPHILS 72 % (28-66); PLATELET ESTIMATE NORMAL (NORMAL)
[2022-09-19 06:41] LABS: OVALOCYTES 1+; TEAR DROP CELLS 1+
[2022-09-19 06:42] LABS: POLYCHROMASIA 1+
[2022-09-19 06:43] LABS: SCHISTOCYTES 1+
[2022-09-19] MEDS: SYMBICORT 80/4.5MCG INHALER 6GM INH SCH ×2 (07:14→20:00)
[2022-09-19] MEDS ORDERED: METOPROLOL 5 MG/5 ML VIAL IV STA (07:48)
[2022-09-19] MEDS ORDERED: AMIODARONE HCL 150 MG in IV 1 EA IV ONE (08:15)
[2022-09-19] MEDS ORDERED: AMIODARONE HCL 360 MG in IV 1 EA IV SCH (08:30)
[2022-09-19] MEDS: MIRALAX *UNIT DOSE* 17GM PACKET PO SCH ×2 (09:00→20:17)
[2022-09-19] MEDS: METOPROLOL TART 25 MG TABLET PO SCH ×3 (09:16→18:09)
[2022-09-19] MEDS: CLOPIDOGREL 75 MG TAB PO SCH (09:42)
[2022-09-19] MEDS: guaiFENesin ER 600 MG TAB PO SCH ×2 (09:42→20:16)
[2022-09-19] MEDS: FOLIC ACID 1MG TAB PO SCH (09:42)
[2022-09-19] MEDS: PANTOPRAZOLE 40MG TAB (PROTONIX) PO SCH (09:43)
[2022-09-19] MEDS: NYSTATIN 100,000 UNITS/GM TOPICAL PWD 15 GM TOP SCH ×2 (09:43→20:17)
[2022-09-19] MEDS ORDERED: POTASSIUM CHLORIDE 10MEQ SR TABLET PO ONE (10:35)
[2022-09-19] MEDS: CALCITRIOL 0.25 MCG CAP (S0169) PO SCH (11:41)
[2022-09-19 12:16] LABS: ABG BASE EXCESS 1.9 (-2.0-2.0); ABG HCO3 25.4 MEQ/L (22.0-26.0); ABG O2 SATURATION 91.4 % (95.0-99.0); ABG PARTIAL PRESSURE CO2 35.2 mmHg (35.0-45.0); ABG PARTIAL PRESSURE O2 61.7 mmHg (75.0-100.0); ABG STANDARD HCO3 26.1 MEQ/L (22.0-26.0); ABG TOTAL CO2 26.5 MEQ/L (23.0-31.0); ABG pH (ARTERIAL) 7.476 UNITS (7.350-7.450)
[2022-09-19 13:01] LABS: CK-MB VALUE MASS 1.8 NG/ML (<3.6); MB/CK RELATIVE INDEX 1.67 (< OR =4)
[2022-09-19 13:24] LABS: FREE T4 1.37 NG/DL (0.76-1.46); THYROID STIMULATING HORMONE 2.29 uIU/ML (0.358-3.740)
[2022-09-19] MEDS: AMIODARONE HCL 360 MG in IV 1 EA IV SCH (15:17)
[2022-09-19 16:13] LABS: MB/CK RELATIVE INDEX 1.89 (< OR =4)
[2022-09-19 20:05] LABS: CK-MB VALUE MASS 1.7 NG/ML (<3.6); MB/CK RELATIVE INDEX 1.67 (< OR =4)
[2022-09-19] MEDS: allopurinoL 100 MG TAB PO SCH (20:16)
[2022-09-19] MEDS: ATORVASTATIN 20 MG TAB PO SCH (20:16)
[2022-09-19 23:57] LABS: CK-MB VALUE MASS 1.4 NG/ML (<3.6); MB/CK RELATIVE INDEX 1.25 (< OR =4)
[2022-09-20] VITALS (18 sets, daily range): BP systolic 103–126; BP diastolic 54–82; O2SAT 86–95
[2022-09-20] MEDS: METOPROLOL TART 25 MG TABLET PO SCH ×5 (00:26→22:29)
[2022-09-20] MEDS: AMIODARONE HCL 360 MG in IV 1 EA IV SCH (02:05)
[2022-09-20] MEDS: IPRATROPIUM 0.5MG/ALBUTEROL 2.5MG INH SOL UD 3ML (DUONEB) NEB SCH ×6 (04:00→20:00)
[2022-09-20] MEDS: FUROSEMIDE injection 250 MG in D5W 225 ML IV SCH ×4 (04:11→22:26)
[2022-09-20] MEDS: LEVOTHYROXINE 75MCG TABLET (0.075MG) PO SCH (05:50)
[2022-09-20] MEDS: SYMBICORT 80/4.5MCG INHALER 6GM INH SCH ×2 (08:00→20:00)
[2022-09-20] MEDS: MIRALAX *UNIT DOSE* 17GM PACKET PO SCH ×2 (08:52→21:00)
[2022-09-20] MEDS: NYSTATIN 100,000 UNITS/GM TOPICAL PWD 15 GM TOP SCH ×2 (09:06→22:26)
[2022-09-20] MEDS: guaiFENesin ER 600 MG TAB PO SCH ×2 (09:07→22:25)
[2022-09-20] MEDS: FOLIC ACID 1MG TAB PO SCH (09:07)
[2022-09-20] MEDS: PANTOPRAZOLE 40MG TAB (PROTONIX) PO SCH (09:07)
[2022-09-20] MEDS: CALCITRIOL 0.25 MCG CAP (S0169) PO SCH (09:07)
[2022-09-20] MEDS: CLOPIDOGREL 75 MG TAB PO SCH (09:07)
[2022-09-20 09:35] LABS: HEMOGLOBIN 7.9 g/dl (12.0-15.5); MEAN CORPUSCULAR HGB CONC 31.6 g/dl (32.0-36.5); PLATELET COUNT, AUTOMATED 244 10^3/uL (150-450); RED BLOOD COUNT 2.55 10^6/uL (4.00-5.40); WHITE BLOOD COUNT 7.9 10^3/uL (4.0-10.0)
[2022-09-20] MEDS: FONDAPARINUX SODIUM 2.5 MG/0.5 ML SYR (J1652 PER 0.5MG) SC SCH (09:38)
[2022-09-20 09:52] LABS: EOSINOPHILS 4 % (0-3); LYMPHOCYTES 10 % (16-44); METAMYELOCYTES 1 % (0-0); MONOCYTES 14 % (0-5); MYELOCYTES 1 % (0-0); NEUTROPHILS 68 % (28-66)
[2022-09-20 09:53] LABS: ANISOCYTOSIS 2+; OVALOCYTES 1+
[2022-09-20 09:54] LABS: TEAR DROP CELLS 1+
[2022-09-20 09:55] LABS: PLATELET ESTIMATE NORMAL (NORMAL)
[2022-09-20 10:05] LABS: CREATININE FOR GFR 1.93 MG/DL (0.55-1.30); GLOMERULAR FILTRATION RATE 26.7 (>39); POTASSIUM SERUM 4.1 MEQ/L (3.5-5.1)
[2022-09-20 17:01] LABS: MAGNESIUM LEVEL 2.1 MG/DL (1.8-2.4)
[2022-09-20] MEDS: AMIODARONE 200 MG TAB (PACERONE) PO SCH (22:25)
[2022-09-20] MEDS: allopurinoL 100 MG TAB PO SCH (22:25)
[2022-09-20] MEDS: ATORVASTATIN 20 MG TAB PO SCH (22:26)
[2022-09-21] VITALS (26 sets, daily range): BP systolic 98–120; BP diastolic 50–85; O2SAT 85–94
[2022-09-21] MEDS: IPRATROPIUM 0.5MG/ALBUTEROL 2.5MG INH SOL UD 3ML (DUONEB) NEB SCH ×6 (03:49→17:49)
[2022-09-21] MEDS: FUROSEMIDE injection 250 MG in D5W 225 ML IV SCH ×4 (04:29→22:25)
[2022-09-21] MEDS: LEVOTHYROXINE 75MCG TABLET (0.075MG) PO SCH (05:35)
[2022-09-21] MEDS: METOPROLOL TART 25 MG TABLET PO SCH ×3 (05:36→18:27)
[2022-09-21 06:04] LABS: BASO % 0.2 % (0.0-1.0); EOS # 0.2 10^3/uL (0.0-0.5); EOS % 2.7 % (0.0-3.0); HEMATOCRIT 24.8 % (36.0-47.0); HEMOGLOBIN 7.8 g/dl (12.0-15.5); LYMPH # 0.3 10^3/uL (1.5-5.0); LYMPH % 3.4 % (24.0-44.0); MEAN CORPUSCULAR HEMOGLOBIN 30.8 pg (27.0-33.0); MEAN CORPUSCULAR HGB CONC 31.5 g/dl (32.0-36.5); NEUTROPHILS # 5.4 10^3/uL (1.5-8.5); NEUTROPHILS % 66.5 % (36.0-66.0); PLATELET COUNT, AUTOMATED 281 10^3/uL (150-450); RED BLOOD COUNT 2.53 10^6/uL (4.00-5.40); WHITE BLOOD COUNT 8.1 10^3/uL (4.0-10.0)
[2022-09-21 06:26] LABS: MONO # 1.9 10^3/uL (0.0-0.8)
[2022-09-21 06:52] LABS: CREATININE FOR GFR 1.86 MG/DL (0.55-1.30); GLOMERULAR FILTRATION RATE 27.8 (>39); POTASSIUM SERUM 3.4 MEQ/L (3.5-5.1)
[2022-09-21 06:53] LABS: CALCIUM LEVEL 6.8 MG/DL (8.8-10.2)
[2022-09-21] MEDS: SYMBICORT 80/4.5MCG INHALER 6GM INH SCH ×2 (07:26→17:49)
[2022-09-21] MEDS ORDERED: POTASSIUM CHLORIDE 10MEQ SR TABLET PO ONE ×2 (08:00→21:00)
[2022-09-21] MEDS: guaiFENesin ER 600 MG TAB PO SCH ×2 (08:19→21:00)
[2022-09-21] MEDS: CALCITRIOL 0.25 MCG CAP (S0169) PO SCH (08:19)
[2022-09-21] MEDS: PANTOPRAZOLE 40MG TAB (PROTONIX) PO SCH (08:19)
[2022-09-21] MEDS: FOLIC ACID 1MG TAB PO SCH (08:19)
[2022-09-21] MEDS: CLOPIDOGREL 75 MG TAB PO SCH (08:19)
[2022-09-21] MEDS: AMIODARONE 200 MG TAB (PACERONE) PO SCH ×2 (08:19→21:08)
[2022-09-21] MEDS: MIRALAX *UNIT DOSE* 17GM PACKET PO SCH ×2 (08:21→21:00)
[2022-09-21] MEDS: NYSTATIN 100,000 UNITS/GM TOPICAL PWD 15 GM TOP SCH ×2 (08:21→21:09)
[2022-09-21] MEDS ORDERED: aMILoride 5 MG TAB PO ONE (13:00)
[2022-09-21 17:15] LABS: HEMATOCRIT 28.4 % (36.0-47.0)
[2022-09-21] MEDS: ATORVASTATIN 20 MG TAB PO SCH (21:08)
[2022-09-21] MEDS: allopurinoL 100 MG TAB PO SCH (21:08)
[2022-09-22] VITALS (29 sets, daily range): BP systolic 90–114; BP diastolic 47–56; O2SAT 85–98
[2022-09-22] MEDS: METOPROLOL TART 25 MG TABLET PO SCH ×4 (00:35→17:07)
[2022-09-22] MEDS: IPRATROPIUM 0.5MG/ALBUTEROL 2.5MG INH SOL UD 3ML (DUONEB) NEB SCH ×7 (03:34→23:06)
[2022-09-22] MEDS: FUROSEMIDE injection 250 MG in D5W 225 ML IV SCH ×4 (04:28→22:32)
[2022-09-22] MEDS: LEVOTHYROXINE 75MCG TABLET (0.075MG) PO SCH (06:10)
[2022-09-22 06:25] LABS: BASO % 0.5 % (0.0-1.0); EOS # 0.3 10^3/uL (0.0-0.5); EOS % 4.1 % (0.0-3.0); HEMATOCRIT 27.3 % (36.0-47.0); HEMOGLOBIN 8.6 g/dl (12.0-15.5); LYMPH # 0.3 10^3/uL (1.5-5.0); LYMPH % 4.3 % (24.0-44.0); MEAN CORPUSCULAR HEMOGLOBIN 30.4 pg (27.0-33.0); MEAN CORPUSCULAR HGB CONC 31.5 g/dl (32.0-36.5); MEAN CORPUSCULAR VOLUME 96.5 fl (80.0-96.0); MONO % 26.6 % (2.0-8.0); NEUTROPHILS # 4.8 10^3/uL (1.5-8.5); NEUTROPHILS % 61.8 % (36.0-66.0); PLATELET COUNT, AUTOMATED 303 10^3/uL (150-450); RED BLOOD COUNT 2.83 10^6/uL (4.00-5.40); WHITE BLOOD COUNT 7.8 10^3/uL (4.0-10.0)
[2022-09-22 07:01] LABS: CALCIUM LEVEL 6.5 MG/DL (8.8-10.2); CREATININE FOR GFR 1.99 MG/DL (0.55-1.30); GLOMERULAR FILTRATION RATE 25.7 (>39); POTASSIUM SERUM 3.8 MEQ/L (3.5-5.1)
[2022-09-22] MEDS: SYMBICORT 80/4.5MCG INHALER 6GM INH SCH ×2 (08:00→19:41)
[2022-09-22 08:30] LABS: MONO # 2.1 10^3/uL (0.0-0.8)
[2022-09-22] MEDS: guaiFENesin ER 600 MG TAB PO SCH ×2 (09:00→20:39)
[2022-09-22] MEDS: MIRALAX *UNIT DOSE* 17GM PACKET PO SCH ×2 (09:00→20:39)
[2022-09-22] MEDS: PANTOPRAZOLE 40MG TAB (PROTONIX) PO SCH (09:04)
[2022-09-22] MEDS: NYSTATIN 100,000 UNITS/GM TOPICAL PWD 15 GM TOP SCH ×2 (09:04→20:40)
[2022-09-22] MEDS: CALCITRIOL 0.25 MCG CAP (S0169) PO SCH (09:04)
[2022-09-22] MEDS: AMIODARONE 200 MG TAB (PACERONE) PO SCH ×3 (09:05→22:37)
[2022-09-22] MEDS: FOLIC ACID 1MG TAB PO SCH (09:05)
[2022-09-22] MEDS: CLOPIDOGREL 75 MG TAB PO SCH (09:05)
[2022-09-22] MEDS: FONDAPARINUX SODIUM 2.5 MG/0.5 ML SYR (J1652 PER 0.5MG) SC SCH (09:06)
[2022-09-22] MEDS ORDERED: metOLazone 5 MG TAB PO ONE (11:15)
[2022-09-22] MEDS: POTASSIUM CHLORIDE 10MEQ SR TABLET PO SCH ×3 (12:32→20:39)
[2022-09-22] MEDS: MIDODRINE 5 MG TAB PO SCH ×2 (12:34→16:02)
[2022-09-22] MEDS ORDERED: aMILoride 5 MG TAB PO ONE (13:00)
[2022-09-22] MEDS: ATORVASTATIN 20 MG TAB PO SCH (20:38)
[2022-09-22] MEDS: allopurinoL 100 MG TAB PO SCH (20:46)
[2022-09-23] VITALS (24 sets, daily range): BP systolic 100–122; BP diastolic 50–64; O2SAT 88–97
[2022-09-23] MEDS: IPRATROPIUM 0.5MG/ALBUTEROL 2.5MG INH SOL UD 3ML (DUONEB) NEB SCH ×5 (04:00→20:00)
[2022-09-23] MEDS: FUROSEMIDE injection 250 MG in D5W 225 ML IV SCH ×4 (04:35→23:03)
[2022-09-23] MEDS: METOPROLOL TART 25 MG TABLET PO SCH ×4 (05:00→17:18)
[2022-09-23] MEDS: LEVOTHYROXINE 75MCG TABLET (0.075MG) PO SCH (05:13)
[2022-09-23 05:41] LABS: HEMATOCRIT 27.7 % (36.0-47.0); HEMOGLOBIN 8.9 g/dl (12.0-15.5); MEAN CORPUSCULAR HEMOGLOBIN 30.9 pg (27.0-33.0); MEAN CORPUSCULAR HGB CONC 32.1 g/dl (32.0-36.5); MEAN CORPUSCULAR VOLUME 96.2 fl (80.0-96.0); PLATELET COUNT, AUTOMATED 375 10^3/uL (150-450); RED BLOOD COUNT 2.88 10^6/uL (4.00-5.40)
[2022-09-23 06:09] LABS: CALCIUM LEVEL 6.8 MG/DL (8.8-10.2); CREATININE FOR GFR 2.26 MG/DL (0.55-1.30); GLOMERULAR FILTRATION RATE 22.2 (>39); POTASSIUM SERUM 4.5 MEQ/L (3.5-5.1)
[2022-09-23] MEDS: SYMBICORT 80/4.5MCG INHALER 6GM INH SCH ×2 (07:06→20:13)
[2022-09-23] MEDS: MIDODRINE 5 MG TAB PO SCH ×3 (07:36→16:10)
[2022-09-23] MEDS: MIRALAX *UNIT DOSE* 17GM PACKET PO SCH ×2 (08:11→20:31)
[2022-09-23] MEDS: FOLIC ACID 1MG TAB PO SCH (08:26)
[2022-09-23] MEDS: AMIODARONE 200 MG TAB (PACERONE) PO SCH ×2 (08:26→20:30)
[2022-09-23] MEDS: CALCITRIOL 0.25 MCG CAP (S0169) PO SCH (08:26)
[2022-09-23] MEDS: PANTOPRAZOLE 40MG TAB (PROTONIX) PO SCH (08:26)
[2022-09-23] MEDS: CLOPIDOGREL 75 MG TAB PO SCH (08:26)
[2022-09-23] MEDS: guaiFENesin ER 600 MG TAB PO SCH ×3 (08:26→20:31)
[2022-09-23] MEDS: NYSTATIN 100,000 UNITS/GM TOPICAL PWD 15 GM TOP SCH ×2 (08:27→20:32)
[2022-09-23] MEDS: ATORVASTATIN 20 MG TAB PO SCH (20:30)
[2022-09-23] MEDS: allopurinoL 100 MG TAB PO SCH (20:30)
[2022-09-24] VITALS (25 sets, daily range): BP systolic 105–170; BP diastolic 51–100; O2SAT 90–99
[2022-09-24] MEDS: IPRATROPIUM 0.5MG/ALBUTEROL 2.5MG INH SOL UD 3ML (DUONEB) NEB SCH ×6 (03:24→19:57)
[2022-09-24] MEDS: FUROSEMIDE injection 250 MG in D5W 225 ML IV SCH ×4 (04:19→21:39)
[2022-09-24] MEDS: LEVOTHYROXINE 75MCG TABLET (0.075MG) PO SCH (05:04)
[2022-09-24] MEDS: METOPROLOL TART 25 MG TABLET PO SCH ×4 (05:19→17:36)
[2022-09-24 05:24] LABS: HEMATOCRIT 26.6 % (36.0-47.0); HEMOGLOBIN 8.4 g/dl (12.0-15.5); MEAN CORPUSCULAR HEMOGLOBIN 30.4 pg (27.0-33.0); MEAN CORPUSCULAR HGB CONC 31.6 g/dl (32.0-36.5); MEAN CORPUSCULAR VOLUME 96.4 fl (80.0-96.0); PLATELET COUNT, AUTOMATED 373 10^3/uL (150-450); RED BLOOD COUNT 2.76 10^6/uL (4.00-5.40); WHITE BLOOD COUNT 7.3 10^3/uL (4.0-10.0)
[2022-09-24 06:00] LABS: CALCIUM LEVEL 6.6 MG/DL (8.8-10.2); CREATININE FOR GFR 2.67 MG/DL (0.55-1.30); GLOMERULAR FILTRATION RATE 18.3 (>39); MAGNESIUM LEVEL 1.9 MG/DL (1.8-2.4); POTASSIUM SERUM 4.3 MEQ/L (3.5-5.1)
[2022-09-24] MEDS: MIDODRINE 5 MG TAB PO SCH ×3 (08:52→15:53)
[2022-09-24] MEDS: MIRALAX *UNIT DOSE* 17GM PACKET PO SCH ×2 (08:52→20:26)
[2022-09-24] MEDS: PANTOPRAZOLE 40MG TAB (PROTONIX) PO SCH (08:52)
[2022-09-24] MEDS: FOLIC ACID 1MG TAB PO SCH (08:52)
[2022-09-24] MEDS: AMIODARONE 200 MG TAB (PACERONE) PO SCH ×2 (08:52→20:25)
[2022-09-24] MEDS: CLOPIDOGREL 75 MG TAB PO SCH (08:52)
[2022-09-24] MEDS: CALCITRIOL 0.25 MCG CAP (S0169) PO SCH (08:52)
[2022-09-24] MEDS: guaiFENesin ER 600 MG TAB PO SCH ×2 (08:52→20:26)
[2022-09-24] MEDS: FONDAPARINUX SODIUM 2.5 MG/0.5 ML SYR (J1652 PER 0.5MG) SC SCH (08:53)
[2022-09-24] MEDS: NYSTATIN 100,000 UNITS/GM TOPICAL PWD 15 GM TOP SCH ×2 (08:53→20:26)
[2022-09-24] MEDS: SYMBICORT 80/4.5MCG INHALER 6GM INH SCH ×2 (09:01→19:57)
[2022-09-24] MEDS: ATORVASTATIN 20 MG TAB PO SCH (20:25)
[2022-09-24] MEDS: allopurinoL 100 MG TAB PO SCH (20:25)
[2022-09-25] VITALS (17 sets, daily range): BP systolic 99–120; BP diastolic 50–57; O2SAT 86–97
[2022-09-25] MEDS: IPRATROPIUM 0.5MG/ALBUTEROL 2.5MG INH SOL UD 3ML (DUONEB) NEB SCH ×6 (03:22→19:56)
[2022-09-25] MEDS: FUROSEMIDE injection 250 MG in D5W 225 ML IV SCH ×2 (03:36→09:38)
[2022-09-25] MEDS: LEVOTHYROXINE 75MCG TABLET (0.075MG) PO SCH (05:36)
[2022-09-25] MEDS: METOPROLOL TART 25 MG TABLET PO SCH ×4 (05:36→18:00)
[2022-09-25 05:58] LABS: HEMATOCRIT 27.8 % (36.0-47.0); HEMOGLOBIN 8.7 g/dl (12.0-15.5); MEAN CORPUSCULAR HEMOGLOBIN 30.4 pg (27.0-33.0); MEAN CORPUSCULAR HGB CONC 31.3 g/dl (32.0-36.5); MEAN CORPUSCULAR VOLUME 97.2 fl (80.0-96.0); PLATELET COUNT, AUTOMATED 371 10^3/uL (150-450); RED BLOOD COUNT 2.86 10^6/uL (4.00-5.40); WHITE BLOOD COUNT 8.3 10^3/uL (4.0-10.0)
[2022-09-25 06:32] LABS: CALCIUM LEVEL 6.2 MG/DL (8.8-10.2); CREATININE FOR GFR 2.57 MG/DL (0.55-1.30); GLOMERULAR FILTRATION RATE 19.2 (>39); MAGNESIUM LEVEL 1.9 MG/DL (1.8-2.4); POTASSIUM SERUM 3.9 MEQ/L (3.5-5.1)
[2022-09-25] MEDS: SYMBICORT 80/4.5MCG INHALER 6GM INH SCH ×2 (07:20→19:21)
[2022-09-25] MEDS: MIRALAX *UNIT DOSE* 17GM PACKET PO SCH ×2 (08:48→21:00)
[2022-09-25] MEDS: guaiFENesin ER 600 MG TAB PO SCH ×2 (08:49→21:25)
[2022-09-25] MEDS: PANTOPRAZOLE 40MG TAB (PROTONIX) PO SCH (08:52)
[2022-09-25] MEDS: CLOPIDOGREL 75 MG TAB PO SCH (08:52)
[2022-09-25] MEDS: AMIODARONE 200 MG TAB (PACERONE) PO SCH ×2 (08:52→21:24)
[2022-09-25] MEDS: CALCITRIOL 0.25 MCG CAP (S0169) PO SCH (08:52)
[2022-09-25] MEDS: MIDODRINE 5 MG TAB PO SCH ×3 (08:52→16:00)
[2022-09-25] MEDS: NYSTATIN 100,000 UNITS/GM TOPICAL PWD 15 GM TOP SCH ×2 (08:53→21:26)
[2022-09-25] MEDS: FOLIC ACID 1MG TAB PO SCH (08:53)
[2022-09-25 13:18] LABS: HEPATITIS B CORE ANTIBODY IGM NEGATIVE (NEGATIVE); HEPATITIS B SURFACE ANTIBODY NEGATIVE (POSITIVE); HEPATITIS B SURFACE ANTIGEN NEGATIVE (NEGATIVE); HEPATITIS C VIRUS ABY INDEX < 0.0 INDEX (<0.8)
[2022-09-25] MEDS ORDERED: LIDOCAINE 1% MDV 20ML VIAL As Ordered ONE ×2 (15:54→16:45)
[2022-09-25] MEDS ORDERED: ceFAZolin SOD 2 GM in IV 1 EA IV ONE (16:05)
[2022-09-25] MEDS ORDERED: ceFAZolin 2 GM/D5W 50 ML IV BAG (J0690 PER 500MG) As Ordered ONE (16:07)
[2022-09-25] MEDS ORDERED: SODIUM CHLORIDE 0.9% INJ 10 ML SYR IV PRN (18:00)
[2022-09-25] MEDS: SODIUM CHLORIDE 0.9% INJ 10 ML SYR IV SCH (18:57)
[2022-09-25] MEDS: allopurinoL 100 MG TAB PO SCH (21:24)
[2022-09-25] MEDS: ATORVASTATIN 20 MG TAB PO SCH (21:25)
[2022-09-26] VITALS (19 sets, daily range): BP systolic 100–118; BP diastolic 52–58; O2SAT 81–94
[2022-09-26] MEDS: SODIUM CHLORIDE 0.9% INJ 10 ML SYR IV SCH ×4 (00:10→17:38)
[2022-09-26] MEDS: IPRATROPIUM 0.5MG/ALBUTEROL 2.5MG INH SOL UD 3ML (DUONEB) NEB SCH ×7 (04:00→23:54)
[2022-09-26] MEDS: LEVOTHYROXINE 75MCG TABLET (0.075MG) PO SCH (05:40)
[2022-09-26] MEDS: METOPROLOL TART 25 MG TABLET PO SCH ×4 (05:40→17:37)
[2022-09-26] MEDS ORDERED: SODIUM CHLORIDE 0.9% 1000ML IV PRN (06:25)
[2022-09-26] MEDS ORDERED: LIDOCAINE 1% SDV 5ML VIAL SC PRN (06:25)
[2022-09-26 07:12] LABS: HEMATOCRIT 27.8 % (36.0-47.0); HEMOGLOBIN 8.6 g/dl (12.0-15.5); MEAN CORPUSCULAR HEMOGLOBIN 30.2 pg (27.0-33.0); MEAN CORPUSCULAR HGB CONC 30.9 g/dl (32.0-36.5); MEAN CORPUSCULAR VOLUME 97.5 fl (80.0-96.0); PLATELET COUNT, AUTOMATED 339 10^3/uL (150-450); RED BLOOD COUNT 2.85 10^6/uL (4.00-5.40); WHITE BLOOD COUNT 8.3 10^3/uL (4.0-10.0)
[2022-09-26] MEDS: MIDODRINE 5 MG TAB PO SCH ×3 (07:38→17:38)
[2022-09-26] MEDS: AMIODARONE 200 MG TAB (PACERONE) PO SCH ×2 (07:56→20:47)
[2022-09-26] MEDS: SYMBICORT 80/4.5MCG INHALER 6GM INH SCH ×2 (08:00→20:00)
[2022-09-26 08:16] LABS: CALCIUM LEVEL 6.4 MG/DL (8.8-10.2); CREATININE FOR GFR 2.61 MG/DL (0.55-1.30); GLOMERULAR FILTRATION RATE 18.8 (>39); POTASSIUM SERUM 3.8 MEQ/L (3.5-5.1)
[2022-09-26] MEDS: MIRALAX *UNIT DOSE* 17GM PACKET PO SCH ×2 (13:15→20:48)
[2022-09-26] MEDS: NYSTATIN 100,000 UNITS/GM TOPICAL PWD 15 GM TOP SCH ×3 (13:45→20:48)
[2022-09-26] MEDS: CALCITRIOL 0.25 MCG CAP (S0169) PO SCH (13:46)
[2022-09-26] MEDS: guaiFENesin ER 600 MG TAB PO SCH ×3 (13:46→20:49)
[2022-09-26] MEDS: CLOPIDOGREL 75 MG TAB PO SCH (13:47)
[2022-09-26] MEDS: FOLIC ACID 1MG TAB PO SCH (13:47)
[2022-09-26] MEDS: PANTOPRAZOLE 40MG TAB (PROTONIX) PO SCH (13:47)
[2022-09-26] MEDS: FONDAPARINUX SODIUM 2.5 MG/0.5 ML SYR (J1652 PER 0.5MG) SC SCH (13:49)
[2022-09-26] MEDS: ATORVASTATIN 20 MG TAB PO SCH (20:46)
[2022-09-26] MEDS: allopurinoL 100 MG TAB PO SCH (20:46)
[2022-09-27] VITALS (10 sets, daily range): BP systolic 102–114; BP diastolic 50–54; O2SAT 88–97
[2022-09-27] MEDS: SODIUM CHLORIDE 0.9% INJ 10 ML SYR IV SCH ×3 (00:51→14:51)
[2022-09-27] MEDS: IPRATROPIUM 0.5MG/ALBUTEROL 2.5MG INH SOL UD 3ML (DUONEB) NEB SCH ×4 (03:44→15:02)
[2022-09-27] MEDS: LEVOTHYROXINE 75MCG TABLET (0.075MG) PO SCH (05:08)
[2022-09-27] MEDS: METOPROLOL TART 25 MG TABLET PO SCH ×3 (05:10→12:00)
[2022-09-27 06:00] LABS: HEMATOCRIT 27.6 % (36.0-47.0); HEMOGLOBIN 8.3 g/dl (12.0-15.5); MEAN CORPUSCULAR HEMOGLOBIN 29.6 pg (27.0-33.0); MEAN CORPUSCULAR HGB CONC 30.1 g/dl (32.0-36.5); MEAN CORPUSCULAR VOLUME 98.6 fl (80.0-96.0); PLATELET COUNT, AUTOMATED 344 10^3/uL (150-450); WHITE BLOOD COUNT 8.9 10^3/uL (4.0-10.0)
[2022-09-27 06:40] LABS: CALCIUM LEVEL 6.6 MG/DL (8.8-10.2); CREATININE FOR GFR 2.54 MG/DL (0.55-1.30); GLOMERULAR FILTRATION RATE 19.4 (>39); POTASSIUM SERUM 3.9 MEQ/L (3.5-5.1)
[2022-09-27] MEDS: SYMBICORT 80/4.5MCG INHALER 6GM INH SCH (07:39)
[2022-09-27] MEDS: AMIODARONE 200 MG TAB (PACERONE) PO SCH (08:47)
[2022-09-27] MEDS: MIDODRINE 5 MG TAB PO SCH ×2 (08:47→14:50)
[2022-09-27] MEDS: MIRALAX *UNIT DOSE* 17GM PACKET PO SCH (08:48)
[2022-09-27] MEDS: guaiFENesin ER 600 MG TAB PO SCH (08:48)
[2022-09-27] MEDS: CALCITRIOL 0.25 MCG CAP (S0169) PO SCH (08:48)
[2022-09-27] MEDS: CLOPIDOGREL 75 MG TAB PO SCH (08:48)
[2022-09-27] MEDS: FOLIC ACID 1MG TAB PO SCH (08:48)
[2022-09-27] MEDS: PANTOPRAZOLE 40MG TAB (PROTONIX) PO SCH (08:48)
[2022-09-27] MEDS: NYSTATIN 100,000 UNITS/GM TOPICAL PWD 15 GM TOP SCH (08:48)
[2022-09-27] MEDS ORDERED: SODIUM CHLORIDE NASAL 0.65% SPRAY BTL (OCEAN) PRN (10:35)
[2022-09-27] MEDS ORDERED: MIRA1POW3 PO (12:10)
[2022-09-27] MEDS ORDERED: NYST10006 TOP (12:10)
[2022-09-27] MEDS ORDERED: IPRA0.00 NEB (12:10)
[2022-09-27] MEDS ORDERED: SYMB80INH INH (12:10)
[2022-09-27] MEDS ORDERED: FOLI1TAB11 PO (12:10)
[2022-09-27] MEDS ORDERED: MIDO5TA PO (12:10)
[2022-09-27] MEDS ORDERED: METO1TAB87 PO (12:10)
[2022-09-27] MEDS ORDERED: ACET1TAB55 PO (12:10)
[2022-09-27] MEDS ORDERED: CALC1CAP31 PO (12:10)
[2022-09-27] MEDS ORDERED: Sodium Chloride Nasal Spray (12:10)
[2022-09-27] MEDS ORDERED: AMIO200T49 PO ×2 (12:10)
== END 2022-09-27 16:01 | DRG 291 ==
LOC: M ED 04:13 → M ED INP 08:33 → M PCU 14:00
PROVIDERS: ADMIT Internal Medicine; ATTEND Internal Medicine
PROC: 30233N1 Transfusion of Nonautologous Red Blood Cells into Peripheral Vein, Percutaneous Approach (ICD-10-PCS; 2022-09-12)
PROC: 02HV33Z Insertion of Infusion Device into Superior Vena Cava, Percutaneous Approach (ICD-10-PCS; principal; 2022-09-19)
PROC: 02HV33Z Insertion of Infusion Device into Superior Vena Cava, Percutaneous Approach (ICD-10-PCS; 2022-09-25)
PROC: 5A1D70Z Performance of Urinary Filtration, Intermittent, Less than 6 Hours Per Day (ICD-10-PCS; 2022-09-26)
DX: I50.23 Acute on chronic systolic (congestive) heart failure (principal); J15.0 Pneumonia due to Klebsiella pneumoniae; D61.810 Antineoplastic chemotherapy induced pancytopenia; J15.7 Pneumonia due to Mycoplasma pneumoniae; N18.6 End stage renal disease; C34.32 Malignant neoplasm of lower lobe, left bronchus or lung; J44.1 Chronic obstructive pulmonary disease with (acute) exacerbation; N17.9 Acute kidney failure, unspecified; E87.20 Acidosis, unspecified; D84.822 Immunodeficiency due to external causes; C79.89 Secondary malignant neoplasm of other specified sites; I24.8 Other forms of acute ischemic heart disease; M10.9 Gout, unspecified; E78.5 Hyperlipidemia, unspecified; I25.2 Old myocardial infarction; E03.9 Hypothyroidism, unspecified; K21.9 Gastro-esophageal reflux disease without esophagitis; K59.00 Constipation, unspecified; I87.2 Venous insufficiency (chronic) (peripheral); L30.9 Dermatitis, unspecified; I95.9 Hypotension, unspecified; I48.0 Paroxysmal atrial fibrillation; E87.5 Hyperkalemia; I27.20 Pulmonary hypertension, unspecified; I25.5 Ischemic cardiomyopathy; E83.39 Other disorders of phosphorus metabolism; D63.0 Anemia in neoplastic disease; E83.42 Hypomagnesemia; I25.10 Atherosclerotic heart disease of native coronary artery without angina pectoris; Z86.711 Personal history of pulmonary embolism; Z86.718 Personal history of other venous thrombosis and embolism; Z95.5 Presence of coronary angioplasty implant and graft; Z95.828 Presence of other vascular implants and grafts; Z87.891 Personal history of nicotine dependence; Z79.02 Long term (current) use of antithrombotics/antiplatelets; Z79.890 Hormone replacement therapy; Z79.899 Other long term (current) drug therapy; Z88.8 Allergy status to other drugs, medicaments and biological substances; Z95.810 Presence of automatic (implantable) cardiac defibrillator

== ENCOUNTER 2022-09-27 12:16 | Inpatient (IN) | payer MEDICARE, BC, OTHER ==
[~2022-09-27] VITALS: Ht 154.9 cm; Wt 97.6 kg
[~2022-09-27 12:16] MED LIST changes: +ACET1TAB55 PO; +CALC1CAP31 PO; +CEPH250T PO; +IPRA0.00 NEB; +METO1TAB87 PO; +MIDO5TA PO; +MIRA1POW3 PO; +NYST10006 TOP; +PROA1AER2 INH; +SLOW160T12 PO; +SYMB80INH INH; +Sodium Chloride Nasal Spray
[2022-09-27 16:15] VITALS: BP 151/67
[2022-09-27] MEDS ORDERED: ONDANSETRON 4MG ORAL DISINTEGRATING TAB PO PRN (16:40)
[2022-09-27] MEDS ORDERED: NITROGLYCERIN 0.4MG SUBL TABLET SL PRN (16:40)
[2022-09-27] MEDS ORDERED: ALBUTEROL 90 MCG/ACT 8GM HFA INHALER INH PRN (16:40)
[2022-09-27] MEDS: METOPROLOL TART 25 MG TABLET PO SCH ×2 (18:00→23:45)
[2022-09-27] MEDS: guaiFENesin ER 600 MG TAB PO SCH (19:48)
[2022-09-27 20:00] VITALS: BP_SYST 108; BP_SYST 152; BP_DIAS 56; BP_DIAS 82
[2022-09-27] MEDS: SYMBICORT 80/4.5MCG INHALER 6GM INH SCH (20:42)
[2022-09-27] MEDS: COMBIVENT RESPIMAT 100-20MCG INHALER 4GM INH SCH (20:42)
[2022-09-27] MEDS: MIRALAX *UNIT DOSE* 17GM PACKET PO SCH (21:00)
[2022-09-27] MEDS: REMEDY PHYTOPLEX Z-GUARD PASTE 113GM TUBE (FROM STOREROOM PRODUCT) TOP SCH (21:00)
[2022-09-27] MEDS: allopurinoL 100 MG TAB PO SCH (21:06)
[2022-09-27] MEDS: DOCUSATE SODIUM 100MG CAPSULE PO SCH (21:06)
[2022-09-27] MEDS: SENNA 8.6 MG TAB (SENOKOT) PO SCH (21:06)
[2022-09-27] MEDS: SODIUM CHLORIDE NASAL 0.65% SPRAY BTL (OCEAN) SCH (21:06)
[2022-09-27] MEDS: ATORVASTATIN 20 MG TAB PO SCH (21:07)
[2022-09-27] MEDS: AMIODARONE 200 MG TAB (PACERONE) PO SCH (21:07)
[2022-09-27] MEDS: NYSTATIN 100,000 UNITS/GM TOPICAL PWD 15GM TOP SCH (21:07)
[2022-09-28 06:00] VITALS: BP 109/58
[2022-09-28] MEDS: METOPROLOL TART 25 MG TABLET PO SCH ×3 (06:00→18:00)
[2022-09-28] MEDS: LEVOTHYROXINE 75MCG TABLET (0.075MG) PO SCH (06:05)
[2022-09-28] MEDS ORDERED: HEPARIN 1,000UNITS/ML 10ML VIAL (FOR RADIOLOGY & DIALYSIS ONLY) XX SCH (07:20)
[2022-09-28] MEDS ORDERED: HEPARIN 1,000UNITS/ML 10ML VIAL (FOR RADIOLOGY & DIALYSIS ONLY) IV PRN (07:20)
[2022-09-28] MEDS: COMBIVENT RESPIMAT 100-20MCG INHALER 4GM INH SCH ×4 (07:28→20:57)
[2022-09-28] MEDS: SYMBICORT 80/4.5MCG INHALER 6GM INH SCH ×2 (08:00→20:57)
[2022-09-28] MEDS: DOCUSATE SODIUM 100MG CAPSULE PO SCH ×2 (08:40→20:55)
[2022-09-28] MEDS: FONDAPARINUX SODIUM 2.5 MG/0.5 ML SYRINGE SC SCH (08:40)
[2022-09-28] MEDS: guaiFENesin ER 600 MG TAB PO SCH ×2 (08:40→21:00)
[2022-09-28] MEDS: MIRALAX *UNIT DOSE* 17GM PACKET PO SCH ×2 (08:40→20:55)
[2022-09-28] MEDS: PANTOPRAZOLE 40MG TAB (PROTONIX) PO SCH (08:40)
[2022-09-28] MEDS: FOLIC ACID 1MG TAB PO SCH (08:40)
[2022-09-28] MEDS: CALCITRIOL 0.25 MCG CAP (S0169) PO SCH (08:40)
[2022-09-28] MEDS: AMIODARONE 200 MG TAB (PACERONE) PO SCH ×2 (08:42→21:03)
[2022-09-28] MEDS: SODIUM CHLORIDE NASAL 0.65% SPRAY BTL (OCEAN) SCH ×3 (08:42→20:55)
[2022-09-28] MEDS: MIDODRINE 5 MG TAB PO SCH ×3 (08:42→18:16)
[2022-09-28] MEDS: CLOPIDOGREL 75 MG TAB PO SCH (08:42)
[2022-09-28] MEDS: REMEDY PHYTOPLEX Z-GUARD PASTE 113GM TUBE (FROM STOREROOM PRODUCT) TOP SCH ×3 (08:43→21:00)
[2022-09-28] MEDS: NYSTATIN 100,000 UNITS/GM TOPICAL PWD 15GM TOP SCH ×2 (08:43→20:56)
[2022-09-28 11:07] LABS: HEMATOCRIT 27.6 % (36.0-47.0); HEMOGLOBIN 8.6 g/dl (12.0-15.5); MEAN CORPUSCULAR HEMOGLOBIN 30.4 pg (27.0-33.0); MEAN CORPUSCULAR HGB CONC 31.2 g/dl (32.0-36.5); MEAN CORPUSCULAR VOLUME 97.5 fl (80.0-96.0); PLATELET COUNT, AUTOMATED 366 10^3/uL (150-450); RED BLOOD COUNT 2.83 10^6/uL (4.00-5.40); WHITE BLOOD COUNT 12.8 10^3/uL (4.0-10.0)
[2022-09-28 11:34] LABS: ALBUMIN 2.4 GM/DL (3.2-5.2); PHOSPHORUS LEVEL 6.2 MG/DL (2.5-4.9); POTASSIUM SERUM 4.3 MEQ/L (3.5-5.1)
[2022-09-28] MEDS: ACETAMINOPHEN TAB 650MG DOSE (2X325MG) PO PRN (13:30)
[2022-09-28] MEDS ORDERED: HOME MED LIST COMPLETE! XX SCH ×2 (15:25)
[2022-09-28 18:00] VITALS: BP 111/56
[2022-09-28] MEDS: ANALGESIC BALM CRM 3OZ TOP SCH ×2 (18:16→21:00)
[2022-09-28] MEDS: SENNA 8.6 MG TAB (SENOKOT) PO SCH (20:55)
[2022-09-28] MEDS ORDERED: GABAPENTIN 100 MG CAP PO SCH (21:00)
[2022-09-28] MEDS: allopurinoL 100 MG TAB PO SCH (21:03)
[2022-09-28] MEDS: GABAPENTIN 100 MG CAP PO SCH (21:03)
[2022-09-28] MEDS: ATORVASTATIN 20 MG TAB PO SCH (21:03)
[2022-09-29] MEDS: METOPROLOL TART 25 MG TABLET PO SCH ×2 (05:12)
[2022-09-29] MEDS: LEVOTHYROXINE 75MCG TABLET (0.075MG) PO SCH (05:17)
[2022-09-29 06:09] VITALS: BP 110/54
[2022-09-29] MEDS ORDERED: HEPARIN 1,000UNITS/ML 10ML VIAL (FOR RADIOLOGY & DIALYSIS ONLY) XX SCH (06:45)
[2022-09-29] MEDS ORDERED: HEPARIN 1,000UNITS/ML 10ML VIAL (FOR RADIOLOGY & DIALYSIS ONLY) IV PRN (06:45)
[2022-09-29] MEDS ORDERED: SODIUM CHLORIDE 0.9% 1000ML IV PRN (06:45)
[2022-09-29] MEDS: SYMBICORT 80/4.5MCG INHALER 6GM INH SCH ×2 (07:39→21:18)
[2022-09-29] MEDS: COMBIVENT RESPIMAT 100-20MCG INHALER 4GM INH SCH ×4 (07:40→20:00)
[2022-09-29] MEDS: MIDODRINE 5 MG TAB PO SCH ×3 (08:00→16:59)
[2022-09-29] MEDS: REMEDY PHYTOPLEX Z-GUARD PASTE 113GM TUBE (FROM STOREROOM PRODUCT) TOP SCH ×3 (09:00→20:07)
[2022-09-29] MEDS: MIRALAX *UNIT DOSE* 17GM PACKET PO SCH ×2 (09:00→20:08)
[2022-09-29] MEDS: DOCUSATE SODIUM 100MG CAPSULE PO SCH ×2 (09:01→20:06)
[2022-09-29] MEDS: FOLIC ACID 1MG TAB PO SCH (09:01)
[2022-09-29] MEDS: guaiFENesin ER 600 MG TAB PO SCH ×2 (09:01→20:08)
[2022-09-29] MEDS: PANTOPRAZOLE 40MG TAB (PROTONIX) PO SCH (09:01)
[2022-09-29] MEDS: CLOPIDOGREL 75 MG TAB PO SCH (09:01)
[2022-09-29] MEDS: CALCITRIOL 0.25 MCG CAP (S0169) PO SCH (09:01)
[2022-09-29] MEDS: AMIODARONE 200 MG TAB (PACERONE) PO SCH ×2 (09:02→20:06)
[2022-09-29] MEDS: ANALGESIC BALM CRM 3OZ TOP SCH ×3 (09:03→20:06)
[2022-09-29] MEDS: SODIUM CHLORIDE NASAL 0.65% SPRAY BTL (OCEAN) SCH ×3 (09:03→20:07)
[2022-09-29] MEDS: NYSTATIN 100,000 UNITS/GM TOPICAL PWD 15GM TOP SCH ×2 (09:03→20:07)
[2022-09-29] MEDS: METOPROLOL TART 12.5 MG PER 1/2 TAB PO SCH ×2 (12:00→16:59)
[2022-09-29 15:23] LABS: BASO # 0.1 10^3/uL (0.0-0.2); BASO % 0.4 % (0.0-1.0); EOS # 0.1 10^3/uL (0.0-0.5); EOS % 0.7 % (0.0-3.0); HEMATOCRIT 24.7 % (36.0-47.0); HEMOGLOBIN 7.5 g/dl (12.0-15.5); LYMPH # 1.2 10^3/uL (1.5-5.0); MEAN CORPUSCULAR HEMOGLOBIN 30.2 pg (27.0-33.0); MEAN CORPUSCULAR HGB CONC 30.4 g/dl (32.0-36.5); MEAN CORPUSCULAR VOLUME 99.6 fl (80.0-96.0); MONO # 1.5 10^3/uL (0.0-0.8); MONO % 11.5 % (2.0-8.0); NEUTROPHILS # 10.3 10^3/uL (1.5-8.5); NEUTROPHILS % 76.5 % (36.0-66.0); PLATELET COUNT, AUTOMATED 300 10^3/uL (150-450); RED BLOOD COUNT 2.48 10^6/uL (4.00-5.40); WHITE BLOOD COUNT 13.4 10^3/uL (4.0-10.0)
[2022-09-29 16:07] LABS: CALCIUM LEVEL 9.1 MG/DL (8.8-10.2); CREATININE FOR GFR 1.62 MG/DL (0.55-1.30); GLOMERULAR FILTRATION RATE 32.6 (>39)
[2022-09-29 16:18] VITALS: BP 120/57
[2022-09-29 16:51] VITALS: BP 100/50
[2022-09-29 20:00] VITALS: BP 128/61
[2022-09-29] MEDS: GABAPENTIN 100 MG CAP PO SCH (20:05)
[2022-09-29] MEDS: SENNA 8.6 MG TAB (SENOKOT) PO SCH (20:06)
[2022-09-29] MEDS: allopurinoL 100 MG TAB PO SCH (20:06)
[2022-09-29] MEDS: ATORVASTATIN 20 MG TAB PO SCH (20:06)
[2022-09-30] MEDS: LEVOTHYROXINE 75MCG TABLET (0.075MG) PO SCH (05:41)
[2022-09-30] MEDS: METOPROLOL TART 12.5 MG PER 1/2 TAB PO SCH ×4 (05:41→18:00)
[2022-09-30 06:00] VITALS: BP 113/56
[2022-09-30] MEDS: SYMBICORT 80/4.5MCG INHALER 6GM INH SCH ×2 (07:31→20:50)
[2022-09-30] MEDS: COMBIVENT RESPIMAT 100-20MCG INHALER 4GM INH SCH ×4 (07:32→20:00)
[2022-09-30] MEDS: DOCUSATE SODIUM 100MG CAPSULE PO SCH ×2 (08:40→21:17)
[2022-09-30] MEDS: MIDODRINE 5 MG TAB PO SCH ×3 (08:40→16:10)
[2022-09-30] MEDS: MIRALAX *UNIT DOSE* 17GM PACKET PO SCH ×2 (08:41→21:00)
[2022-09-30] MEDS: CLOPIDOGREL 75 MG TAB PO SCH (08:41)
[2022-09-30] MEDS: AMIODARONE 200 MG TAB (PACERONE) PO SCH ×2 (08:41→21:17)
[2022-09-30] MEDS: guaiFENesin ER 600 MG TAB PO SCH ×2 (08:41→21:00)
[2022-09-30] MEDS: FOLIC ACID 1MG TAB PO SCH (08:41)
[2022-09-30] MEDS: CALCITRIOL 0.25 MCG CAP (S0169) PO SCH (08:42)
[2022-09-30] MEDS: PANTOPRAZOLE 40MG TAB (PROTONIX) PO SCH (08:42)
[2022-09-30] MEDS: ACETAMINOPHEN TAB 650MG DOSE (2X325MG) PO PRN ×2 (08:42→15:21)
[2022-09-30] MEDS: FONDAPARINUX SODIUM 2.5 MG/0.5 ML SYRINGE SC SCH (08:42)
[2022-09-30] MEDS: SODIUM CHLORIDE NASAL 0.65% SPRAY BTL (OCEAN) SCH ×3 (08:45→21:00)
[2022-09-30] MEDS: REMEDY PHYTOPLEX Z-GUARD PASTE 113GM TUBE (FROM STOREROOM PRODUCT) TOP SCH ×3 (08:46→21:20)
[2022-09-30] MEDS: NYSTATIN 100,000 UNITS/GM TOPICAL PWD 15GM TOP SCH ×2 (08:46→21:00)
[2022-09-30] MEDS: ANALGESIC BALM CRM 3OZ TOP SCH ×3 (08:46→21:00)
[2022-09-30 14:00] VITALS: BP 97/44
[2022-09-30 18:00] VITALS: BP 98/49
[2022-09-30 20:00] VITALS: BP 150/76
[2022-09-30] MEDS: SENNA 8.6 MG TAB (SENOKOT) PO SCH (21:16)
[2022-09-30] MEDS: ATORVASTATIN 20 MG TAB PO SCH (21:17)
[2022-09-30] MEDS: GABAPENTIN 100 MG CAP PO SCH (21:17)
[2022-09-30] MEDS: allopurinoL 100 MG TAB PO SCH (21:17)
[2022-10-01] VITALS (12 sets, daily range): BP systolic 108–142; BP diastolic 53–76
[2022-10-01] MEDS ORDERED: SODIUM CHLORIDE 0.9% INJ 10 ML SYR IV PRN (04:35)
[2022-10-01] MEDS: LEVOTHYROXINE 75MCG TABLET (0.075MG) PO SCH (05:51)
[2022-10-01] MEDS: SODIUM CHLORIDE 0.9% INJ 10 ML SYR IV SCH ×2 (05:51→17:54)
[2022-10-01] MEDS: SODIUM CHLORIDE 0.9% INJ 10 ML SYR IV PRN (05:52)
[2022-10-01] MEDS ORDERED: SODIUM CHLORIDE 0.9% INJ 10 ML SYR IV SCH (06:00)
[2022-10-01 06:48] LABS: HEMATOCRIT 22.2 % (36.0-47.0); MEAN CORPUSCULAR HEMOGLOBIN 29.4 pg (27.0-33.0); MEAN CORPUSCULAR HGB CONC 29.3 g/dl (32.0-36.5); MEAN CORPUSCULAR VOLUME 100.5 fl (80.0-96.0); PLATELET COUNT, AUTOMATED 310 10^3/uL (150-450); RED BLOOD COUNT 2.21 10^6/uL (4.00-5.40)
[2022-10-01 06:56] LABS: HEMOGLOBIN 6.5 g/dl (12.0-15.5)
[2022-10-01 07:24] LABS: CALCIUM LEVEL 8.2 MG/DL (8.8-10.2); CREATININE FOR GFR 3.85 MG/DL (0.55-1.30); POTASSIUM SERUM 5.3 MEQ/L (3.5-5.1)
[2022-10-01] MEDS: SYMBICORT 80/4.5MCG INHALER 6GM INH SCH ×2 (07:27→20:00)
[2022-10-01] MEDS: COMBIVENT RESPIMAT 100-20MCG INHALER 4GM INH SCH ×4 (07:28→20:00)
[2022-10-01 08:06] LABS: HEMATOCRIT 22.8 % (36.0-47.0); MEAN CORPUSCULAR HEMOGLOBIN 29.4 pg (27.0-33.0); MEAN CORPUSCULAR HGB CONC 29.4 g/dl (32.0-36.5); PLATELET COUNT, AUTOMATED 307 10^3/uL (150-450); RED BLOOD COUNT 2.28 10^6/uL (4.00-5.40); WHITE BLOOD COUNT 12.9 10^3/uL (4.0-10.0)
[2022-10-01 08:11] LABS: HEMOGLOBIN 6.7 g/dl (12.0-15.5)
[2022-10-01] MEDS: METOPROLOL TART 12.5 MG PER 1/2 TAB PO SCH ×2 (09:00→20:45)
[2022-10-01] MEDS: guaiFENesin ER 600 MG TAB PO SCH ×2 (09:00→20:02)
[2022-10-01] MEDS: REMEDY PHYTOPLEX Z-GUARD PASTE 113GM TUBE (FROM STOREROOM PRODUCT) TOP SCH ×3 (09:00→20:47)
[2022-10-01] MEDS: ANALGESIC BALM CRM 3OZ TOP SCH ×3 (09:00→20:47)
[2022-10-01] MEDS: FOLIC ACID 1MG TAB PO SCH (09:12)
[2022-10-01] MEDS: MIDODRINE 5 MG TAB PO SCH ×3 (09:12→16:00)
[2022-10-01] MEDS: DOCUSATE SODIUM 100MG CAPSULE PO SCH ×2 (09:12→20:02)
[2022-10-01] MEDS: MIRALAX *UNIT DOSE* 17GM PACKET PO SCH ×2 (09:12→20:02)
[2022-10-01] MEDS: PANTOPRAZOLE 40MG TAB (PROTONIX) PO SCH (09:13)
[2022-10-01] MEDS: CALCITRIOL 0.25 MCG CAP (S0169) PO SCH (09:13)
[2022-10-01] MEDS: AMIODARONE 200 MG TAB (PACERONE) PO SCH ×2 (09:13→20:46)
[2022-10-01] MEDS: NYSTATIN 100,000 UNITS/GM TOPICAL PWD 15GM TOP SCH ×2 (09:14→20:47)
[2022-10-01] MEDS: SODIUM CHLORIDE NASAL 0.65% SPRAY BTL (OCEAN) SCH ×3 (09:14→20:46)
[2022-10-01] MEDS ORDERED: PATIROMER SORBITEX CALCIUM 8.4 GM POWDER PACKET (VELTASSA) PO ONE (11:00)
[2022-10-01] MEDS: ACETAMINOPHEN TAB 650MG DOSE (2X325MG) PO PRN ×2 (12:30→20:45)
[2022-10-01 19:10] LABS: HEMATOCRIT 25.8 % (36.0-47.0); HEMOGLOBIN 7.7 g/dl (12.0-15.5); MEAN CORPUSCULAR HEMOGLOBIN 29.6 pg (27.0-33.0); MEAN CORPUSCULAR HGB CONC 29.8 g/dl (32.0-36.5); MEAN CORPUSCULAR VOLUME 99.2 fl (80.0-96.0); PLATELET COUNT, AUTOMATED 303 10^3/uL (150-450); WHITE BLOOD COUNT 14.1 10^3/uL (4.0-10.0)
[2022-10-01] MEDS: SENNA 8.6 MG TAB (SENOKOT) PO SCH (20:03)
[2022-10-01] MEDS: ATORVASTATIN 20 MG TAB PO SCH (20:44)
[2022-10-01] MEDS: GABAPENTIN 100 MG CAP PO SCH (20:45)
[2022-10-01] MEDS: allopurinoL 100 MG TAB PO SCH (20:46)
[2022-10-02] VITALS (8 sets, daily range): BP systolic 98–138; BP diastolic 53–67
[2022-10-02] MEDS: SODIUM CHLORIDE 0.9% INJ 10 ML SYR IV SCH ×2 (05:06→18:49)
[2022-10-02] MEDS: LEVOTHYROXINE 75MCG TABLET (0.075MG) PO SCH (05:06)
[2022-10-02 05:33] LABS: HEMATOCRIT 23.9 % (36.0-47.0); HEMOGLOBIN 7.4 g/dl (12.0-15.5); MEAN CORPUSCULAR HEMOGLOBIN 30.6 pg (27.0-33.0); MEAN CORPUSCULAR VOLUME 98.8 fl (80.0-96.0); PLATELET COUNT, AUTOMATED 273 10^3/uL (150-450); RED BLOOD COUNT 2.42 10^6/uL (4.00-5.40); WHITE BLOOD COUNT 13.9 10^3/uL (4.0-10.0)
[2022-10-02 06:06] LABS: ALBUMIN 2.3 GM/DL (3.2-5.2); CALCIUM LEVEL 7.9 MG/DL (8.8-10.2); CREATININE FOR GFR 4.65 MG/DL (0.55-1.30); GLOMERULAR FILTRATION RATE 9.7 (>39); PHOSPHORUS LEVEL 5.8 MG/DL (2.5-4.9); POTASSIUM SERUM 5.2 MEQ/L (3.5-5.1)
[2022-10-02] MEDS: METOPROLOL TART 12.5 MG PER 1/2 TAB PO SCH (07:23)
[2022-10-02] MEDS: MIRALAX *UNIT DOSE* 17GM PACKET PO SCH ×2 (07:23→20:29)
[2022-10-02] MEDS ORDERED: HEPARIN 1,000UNITS/ML 10ML VIAL (FOR RADIOLOGY & DIALYSIS ONLY) XX SCH (07:35)
[2022-10-02] MEDS: MIDODRINE 5 MG TAB PO SCH ×3 (08:00→15:18)
[2022-10-02] MEDS ORDERED: SODIUM CHLORIDE 0.9% 1000ML IV PRN (08:00)
[2022-10-02] MEDS ORDERED: HEPARIN 1,000UNITS/ML 10ML VIAL (FOR RADIOLOGY & DIALYSIS ONLY) IV PRN (08:00)
[2022-10-02] MEDS: DOCUSATE SODIUM 100MG CAPSULE PO SCH ×2 (08:12→20:28)
[2022-10-02] MEDS: AMIODARONE 200 MG TAB (PACERONE) PO SCH (08:17)
[2022-10-02] MEDS: FOLIC ACID 1MG TAB PO SCH (08:17)
[2022-10-02] MEDS: PANTOPRAZOLE 40MG TAB (PROTONIX) PO SCH (08:17)
[2022-10-02] MEDS: CALCITRIOL 0.25 MCG CAP (S0169) PO SCH (08:17)
[2022-10-02] MEDS: NYSTATIN 100,000 UNITS/GM TOPICAL PWD 15GM TOP SCH ×2 (08:18→20:29)
[2022-10-02] MEDS: SODIUM CHLORIDE NASAL 0.65% SPRAY BTL (OCEAN) SCH ×3 (08:18→20:29)
[2022-10-02] MEDS: REMEDY PHYTOPLEX Z-GUARD PASTE 113GM TUBE (FROM STOREROOM PRODUCT) TOP SCH ×3 (08:19→20:30)
[2022-10-02] MEDS: ANALGESIC BALM CRM 3OZ TOP SCH (08:19)
[2022-10-02] MEDS: guaiFENesin ER 600 MG TAB PO SCH ×2 (08:19→20:28)
[2022-10-02] MEDS: SYMBICORT 80/4.5MCG INHALER 6GM INH SCH ×2 (08:46→20:54)
[2022-10-02] MEDS: COMBIVENT RESPIMAT 100-20MCG INHALER 4GM INH SCH ×4 (08:46→20:54)
[2022-10-02] MEDS: ACETAMINOPHEN TAB 650MG DOSE (2X325MG) PO PRN (11:34)
[2022-10-02] MEDS: GABAPENTIN 100 MG CAP PO SCH ×2 (12:23→20:28)
[2022-10-02] MEDS: allopurinoL 100 MG TAB PO SCH (20:28)
[2022-10-02] MEDS: SENNA 8.6 MG TAB (SENOKOT) PO SCH (20:28)
[2022-10-02] MEDS: ATORVASTATIN 20 MG TAB PO SCH (20:29)
[2022-10-03] VITALS (7 sets, daily range): BP systolic 99–116; BP diastolic 52–56
[2022-10-03] MEDS: LEVOTHYROXINE 75MCG TABLET (0.075MG) PO SCH (05:31)
[2022-10-03] MEDS: SODIUM CHLORIDE 0.9% INJ 10 ML SYR IV SCH ×2 (05:32→17:46)
[2022-10-03 07:16] LABS: BASO % 0.2 % (0.0-1.0); EOS # 0.1 10^3/uL (0.0-0.5); EOS % 1.3 % (0.0-3.0); HEMOGLOBIN 7.1 g/dl (12.0-15.5); LYMPH # 1.2 10^3/uL (1.5-5.0); LYMPH % 10.8 % (24.0-44.0); MEAN CORPUSCULAR HEMOGLOBIN 30.2 pg (27.0-33.0); MEAN CORPUSCULAR HGB CONC 29.6 g/dl (32.0-36.5); MEAN CORPUSCULAR VOLUME 102.1 fl (80.0-96.0); MONO # 1.1 10^3/uL (0.0-0.8); MONO % 9.6 % (2.0-8.0); NEUTROPHILS # 8.4 10^3/uL (1.5-8.5); NEUTROPHILS % 76.8 % (36.0-66.0); PLATELET COUNT, AUTOMATED 251 10^3/uL (150-450); RED BLOOD COUNT 2.35 10^6/uL (4.00-5.40); WHITE BLOOD COUNT 10.9 10^3/uL (4.0-10.0)
[2022-10-03 07:40] LABS: CALCIUM LEVEL 7.6 MG/DL (8.8-10.2); CREATININE FOR GFR 2.87 MG/DL (0.55-1.30); GLOMERULAR FILTRATION RATE 16.9 (>39); POTASSIUM SERUM 3.9 MEQ/L (3.5-5.1)
[2022-10-03] MEDS: DOCUSATE SODIUM 100MG CAPSULE PO SCH ×2 (07:56→21:00)
[2022-10-03] MEDS: ACETAMINOPHEN TAB 650MG DOSE (2X325MG) PO PRN (07:56)
[2022-10-03] MEDS: GABAPENTIN 100 MG CAP PO SCH ×2 (07:56→21:00)
[2022-10-03] MEDS: MIRALAX *UNIT DOSE* 17GM PACKET PO SCH ×2 (07:57→21:00)
[2022-10-03] MEDS: CALCITRIOL 0.25 MCG CAP (S0169) PO SCH (07:57)
[2022-10-03] MEDS: MIDODRINE 5 MG TAB PO SCH ×3 (07:57→16:26)
[2022-10-03] MEDS: SODIUM CHLORIDE NASAL 0.65% SPRAY BTL (OCEAN) SCH ×3 (07:57→21:01)
[2022-10-03] MEDS: PANTOPRAZOLE 40MG TAB (PROTONIX) PO SCH (07:57)
[2022-10-03] MEDS: FOLIC ACID 1MG TAB PO SCH (07:57)
[2022-10-03] MEDS: guaiFENesin ER 600 MG TAB PO SCH ×2 (07:57→21:01)
[2022-10-03] MEDS: NYSTATIN 100,000 UNITS/GM TOPICAL PWD 15GM TOP SCH ×2 (07:58→21:02)
[2022-10-03] MEDS: REMEDY PHYTOPLEX Z-GUARD PASTE 113GM TUBE (FROM STOREROOM PRODUCT) TOP SCH ×3 (08:00→21:02)
[2022-10-03] MEDS: SYMBICORT 80/4.5MCG INHALER 6GM INH SCH ×2 (08:42→20:48)
[2022-10-03] MEDS: COMBIVENT RESPIMAT 100-20MCG INHALER 4GM INH SCH ×4 (08:42→20:50)
[2022-10-03] MEDS: allopurinoL 100 MG TAB PO SCH (21:00)
[2022-10-03] MEDS: ATORVASTATIN 20 MG TAB PO SCH (21:01)
[2022-10-03] MEDS: SENNA 8.6 MG TAB (SENOKOT) PO SCH (21:01)
[2022-10-04] VITALS (10 sets, daily range): BP systolic 99–123; BP diastolic 40–64
[2022-10-04] MEDS: SODIUM CHLORIDE 0.9% INJ 10 ML SYR IV SCH ×2 (04:54→19:00)
[2022-10-04] MEDS: LEVOTHYROXINE 75MCG TABLET (0.075MG) PO SCH (04:54)
[2022-10-04] MEDS ORDERED: SODIUM CHLORIDE 0.9% 1000ML IV PRN (06:00)
[2022-10-04 07:05] LABS: BASO % 0.2 % (0.0-1.0); EOS # 0.2 10^3/uL (0.0-0.5); EOS % 1.9 % (0.0-3.0); HEMATOCRIT 23.6 % (36.0-47.0); LYMPH # 1.3 10^3/uL (1.5-5.0); LYMPH % 11.6 % (24.0-44.0); MEAN CORPUSCULAR HGB CONC 29.2 g/dl (32.0-36.5); MEAN CORPUSCULAR VOLUME 102.6 fl (80.0-96.0); MONO # 0.9 10^3/uL (0.0-0.8); MONO % 8.3 % (2.0-8.0); NEUTROPHILS # 8.3 10^3/uL (1.5-8.5); NEUTROPHILS % 76.8 % (36.0-66.0); PLATELET COUNT, AUTOMATED 226 10^3/uL (150-450); WHITE BLOOD COUNT 10.8 10^3/uL (4.0-10.0)
[2022-10-04 07:07] LABS: HEMOGLOBIN 6.9 g/dl (12.0-15.5)
[2022-10-04] MEDS: CALCITRIOL 0.25 MCG CAP (S0169) PO SCH (07:30)
[2022-10-04] MEDS: FOLIC ACID 1MG TAB PO SCH (07:30)
[2022-10-04] MEDS: MIDODRINE 5 MG TAB PO SCH ×3 (07:31→17:03)
[2022-10-04] MEDS: PANTOPRAZOLE 40MG TAB (PROTONIX) PO SCH (07:31)
[2022-10-04] MEDS: MIRALAX *UNIT DOSE* 17GM PACKET PO SCH ×2 (07:31→21:00)
[2022-10-04] MEDS: guaiFENesin ER 600 MG TAB PO SCH ×2 (07:31→21:03)
[2022-10-04] MEDS: DOCUSATE SODIUM 100MG CAPSULE PO SCH ×2 (07:31→21:03)
[2022-10-04] MEDS: GABAPENTIN 100 MG CAP PO SCH ×2 (07:31→21:02)
[2022-10-04] MEDS: NYSTATIN 100,000 UNITS/GM TOPICAL PWD 15GM TOP SCH ×2 (07:32→21:04)
[2022-10-04] MEDS: SODIUM CHLORIDE NASAL 0.65% SPRAY BTL (OCEAN) SCH ×3 (07:32→21:04)
[2022-10-04] MEDS: REMEDY PHYTOPLEX Z-GUARD PASTE 113GM TUBE (FROM STOREROOM PRODUCT) TOP SCH ×3 (07:33→21:04)
[2022-10-04 07:43] LABS: CALCIUM LEVEL 7.2 MG/DL (8.3-10.6); CREATININE FOR GFR 3.39 MG/DL (0.55-1.30); GLOMERULAR FILTRATION RATE 13.9 (>39); POTASSIUM SERUM 4.1 MMOL/L (3.5-5.1)
[2022-10-04] MEDS: COMBIVENT RESPIMAT 100-20MCG INHALER 4GM INH SCH ×4 (08:12→19:07)
[2022-10-04] MEDS: SYMBICORT 80/4.5MCG INHALER 6GM INH SCH ×2 (08:12→19:07)
[2022-10-04 12:13] LABS: HEMATOCRIT 26.2 % (36.0-47.0); HEMOGLOBIN 7.7 g/dl (12.0-15.5)
[2022-10-04] MEDS: SENNA 8.6 MG TAB (SENOKOT) PO SCH (21:03)
[2022-10-04] MEDS: allopurinoL 100 MG TAB PO SCH (21:03)
[2022-10-04] MEDS: ATORVASTATIN 20 MG TAB PO SCH (21:03)
[2022-10-05] MEDS: LEVOTHYROXINE 75MCG TABLET (0.075MG) PO SCH (05:37)
[2022-10-05] MEDS: SODIUM CHLORIDE 0.9% INJ 10 ML SYR IV SCH ×2 (05:39→16:31)
[2022-10-05] MEDS: SODIUM CHLORIDE 0.9% INJ 10 ML SYR IV PRN (05:39)
[2022-10-05 06:36] VITALS: BP 100/50
[2022-10-05] MEDS: MIRALAX *UNIT DOSE* 17GM PACKET PO SCH ×2 (07:31→20:29)
[2022-10-05] MEDS: MIDODRINE 5 MG TAB PO SCH ×3 (07:32→16:26)
[2022-10-05] MEDS: CALCITRIOL 0.25 MCG CAP (S0169) PO SCH (07:32)
[2022-10-05] MEDS: DOCUSATE SODIUM 100MG CAPSULE PO SCH ×2 (07:32→20:30)
[2022-10-05] MEDS: GABAPENTIN 100 MG CAP PO SCH ×2 (07:32→20:30)
[2022-10-05] MEDS: PANTOPRAZOLE 40MG TAB (PROTONIX) PO SCH (07:33)
[2022-10-05] MEDS: FOLIC ACID 1MG TAB PO SCH (07:33)
[2022-10-05] MEDS: guaiFENesin ER 600 MG TAB PO SCH ×2 (07:33→20:30)
[2022-10-05] MEDS: NYSTATIN 100,000 UNITS/GM TOPICAL PWD 15GM TOP SCH ×2 (07:34→20:32)
[2022-10-05] MEDS: SODIUM CHLORIDE NASAL 0.65% SPRAY BTL (OCEAN) SCH ×3 (07:36→20:31)
[2022-10-05] MEDS: COMBIVENT RESPIMAT 100-20MCG INHALER 4GM INH SCH ×4 (08:00→20:37)
[2022-10-05] MEDS: ACETAMINOPHEN TAB 650MG DOSE (2X325MG) PO PRN (08:49)
[2022-10-05] MEDS: SYMBICORT 80/4.5MCG INHALER 6GM INH SCH ×2 (08:54→20:00)
[2022-10-05] MEDS: REMEDY PHYTOPLEX Z-GUARD PASTE 113GM TUBE (FROM STOREROOM PRODUCT) TOP SCH ×3 (09:00→20:31)
[2022-10-05 10:15] LABS: HEMATOCRIT 31.8 % (36.0-47.0); HEMOGLOBIN 9.6 g/dl (12.0-15.5); MEAN CORPUSCULAR HEMOGLOBIN 29.2 pg (27.0-33.0); MEAN CORPUSCULAR HGB CONC 30.2 g/dl (32.0-36.5); MEAN CORPUSCULAR VOLUME 96.7 fl (80.0-96.0); PLATELET COUNT, AUTOMATED 251 10^3/uL (150-450); RED BLOOD COUNT 3.29 10^6/uL (4.00-5.40); WHITE BLOOD COUNT 13.2 10^3/uL (4.0-10.0)
[2022-10-05 10:16] LABS: BASO % 0.3 % (0.0-1.0); EOS # 0.2 10^3/uL (0.0-0.5); EOS % 1.3 % (0.0-3.0); LYMPH # 1.8 10^3/uL (1.5-5.0); LYMPH % 13.4 % (24.0-44.0); MONO # 1.2 10^3/uL (0.0-0.8); MONO % 9.1 % (2.0-8.0); NEUTROPHILS # 9.9 10^3/uL (1.5-8.5)
[2022-10-05 12:12] VITALS: BP 120/58
[2022-10-05 14:00] VITALS: BP 118/87
[2022-10-05] MEDS: DARBEPOETIN 100MCG/0.5ML *NON-DIALYSIS* SYRINGE SC SCH (16:41)
[2022-10-05] MEDS: allopurinoL 100 MG TAB PO SCH (20:29)
[2022-10-05] MEDS: SENNA 8.6 MG TAB (SENOKOT) PO SCH (20:30)
[2022-10-05] MEDS: ATORVASTATIN 20 MG TAB PO SCH (20:30)
[2022-10-05 20:35] VITALS: BP 112/50
[2022-10-06 04:48] VITALS: BP 114/57
[2022-10-06] MEDS ORDERED: HEPARIN 1,000UNITS/ML 10ML VIAL (FOR RADIOLOGY & DIALYSIS ONLY) IV PRN (06:00)
[2022-10-06] MEDS ORDERED: HEPARIN 1,000UNITS/ML 10ML VIAL (FOR RADIOLOGY & DIALYSIS ONLY) XX SCH (06:00)
[2022-10-06] MEDS ORDERED: SODIUM CHLORIDE 0.9% 1000ML IV PRN (06:00)
[2022-10-06] MEDS: LEVOTHYROXINE 75MCG TABLET (0.075MG) PO SCH (06:42)
[2022-10-06] MEDS: SODIUM CHLORIDE 0.9% INJ 10 ML SYR IV SCH ×2 (06:43→21:09)
[2022-10-06] MEDS: SODIUM CHLORIDE 0.9% INJ 10 ML SYR IV PRN (06:43)
[2022-10-06 07:12] LABS: BASO % 0.2 % (0.0-1.0); EOS # 0.3 10^3/uL (0.0-0.5); EOS % 2.8 % (0.0-3.0); HEMATOCRIT 30.4 % (36.0-47.0); HEMOGLOBIN 8.9 g/dl (12.0-15.5); LYMPH # 1.7 10^3/uL (1.5-5.0); LYMPH % 17.4 % (24.0-44.0); MEAN CORPUSCULAR HEMOGLOBIN 28.9 pg (27.0-33.0); MEAN CORPUSCULAR HGB CONC 29.3 g/dl (32.0-36.5); MEAN CORPUSCULAR VOLUME 98.7 fl (80.0-96.0); MONO # 0.9 10^3/uL (0.0-0.8); MONO % 9.9 % (2.0-8.0); NEUTROPHILS # 6.6 10^3/uL (1.5-8.5); PLATELET COUNT, AUTOMATED 217 10^3/uL (150-450); RED BLOOD COUNT 3.08 10^6/uL (4.00-5.40); WHITE BLOOD COUNT 9.5 10^3/uL (4.0-10.0)
[2022-10-06] MEDS: SYMBICORT 80/4.5MCG INHALER 6GM INH SCH ×3 (08:00→20:00)
[2022-10-06] MEDS: COMBIVENT RESPIMAT 100-20MCG INHALER 4GM INH SCH ×4 (08:00→19:59)
[2022-10-06 08:11] LABS: CALCIUM LEVEL 7.7 MG/DL (8.3-10.6); CREATININE FOR GFR 2.44 MG/DL (0.55-1.30); GLOMERULAR FILTRATION RATE 20.3 (>39); POTASSIUM SERUM 4.2 MMOL/L (3.5-5.1)
[2022-10-06] MEDS ORDERED: AMIODARONE 200 MG TAB (PACERONE) PO SCH (09:00)
[2022-10-06] MEDS: SODIUM CHLORIDE NASAL 0.65% SPRAY BTL (OCEAN) SCH ×3 (09:00→21:07)
[2022-10-06] MEDS: guaiFENesin ER 600 MG TAB PO SCH ×2 (09:00→21:00)
[2022-10-06] MEDS: REMEDY PHYTOPLEX Z-GUARD PASTE 113GM TUBE (FROM STOREROOM PRODUCT) TOP SCH ×3 (09:00→21:00)
[2022-10-06] MEDS: MIRALAX *UNIT DOSE* 17GM PACKET PO SCH ×2 (09:00→21:00)
[2022-10-06] MEDS: DOCUSATE SODIUM 100MG CAPSULE PO SCH ×2 (11:29→21:05)
[2022-10-06] MEDS: PANTOPRAZOLE 40MG TAB (PROTONIX) PO SCH (11:29)
[2022-10-06] MEDS: MIDODRINE 5 MG TAB PO SCH ×3 (11:29→16:00)
[2022-10-06] MEDS: FOLIC ACID 1MG TAB PO SCH (11:29)
[2022-10-06] MEDS: CALCITRIOL 0.25 MCG CAP (S0169) PO SCH (11:29)
[2022-10-06] MEDS: GABAPENTIN 100 MG CAP PO SCH ×2 (11:29→21:05)
[2022-10-06] MEDS: NYSTATIN 100,000 UNITS/GM TOPICAL PWD 15GM TOP SCH ×2 (11:30→21:08)
[2022-10-06 14:00] VITALS: BP 141/65
[2022-10-06 18:06] VITALS: BP 115/55
[2022-10-06 20:00] VITALS: BP 116/59
[2022-10-06] MEDS: ATORVASTATIN 20 MG TAB PO SCH (21:05)
[2022-10-06] MEDS: SENNA 8.6 MG TAB (SENOKOT) PO SCH (21:05)
[2022-10-06] MEDS: allopurinoL 100 MG TAB PO SCH (21:05)
[2022-10-07] MEDS: LEVOTHYROXINE 75MCG TABLET (0.075MG) PO SCH (05:05)
[2022-10-07] MEDS: SODIUM CHLORIDE 0.9% INJ 10 ML SYR IV SCH ×2 (05:06→17:59)
[2022-10-07 06:00] VITALS: BP 94/52
[2022-10-07] MEDS: CALCITRIOL 0.25 MCG CAP (S0169) PO SCH (07:44)
[2022-10-07] MEDS: MIRALAX *UNIT DOSE* 17GM PACKET PO SCH ×2 (07:44→19:55)
[2022-10-07] MEDS: PANTOPRAZOLE 40MG TAB (PROTONIX) PO SCH (07:45)
[2022-10-07] MEDS: MIDODRINE 5 MG TAB PO SCH ×3 (07:45→16:00)
[2022-10-07] MEDS: DOCUSATE SODIUM 100MG CAPSULE PO SCH ×2 (07:45→19:55)
[2022-10-07] MEDS: GABAPENTIN 100 MG CAP PO SCH ×2 (07:45→20:58)
[2022-10-07] MEDS: ACETAMINOPHEN TAB 650MG DOSE (2X325MG) PO PRN (07:46)
[2022-10-07] MEDS: REMEDY PHYTOPLEX Z-GUARD PASTE 113GM TUBE (FROM STOREROOM PRODUCT) TOP SCH ×3 (07:47→20:59)
[2022-10-07] MEDS: NYSTATIN 100,000 UNITS/GM TOPICAL PWD 15GM TOP SCH ×2 (07:47→20:59)
[2022-10-07] MEDS: FOLIC ACID 1MG TAB PO SCH (07:48)
[2022-10-07] MEDS: guaiFENesin ER 600 MG TAB PO SCH ×2 (07:48→20:58)
[2022-10-07] MEDS: SODIUM CHLORIDE NASAL 0.65% SPRAY BTL (OCEAN) SCH ×3 (07:48→20:59)
[2022-10-07] MEDS: COMBIVENT RESPIMAT 100-20MCG INHALER 4GM INH SCH ×4 (08:34→20:05)
[2022-10-07] MEDS: SYMBICORT 80/4.5MCG INHALER 6GM INH SCH ×2 (08:34→20:05)
[2022-10-07 12:00] VITALS: BP 107/59
[2022-10-07 14:00] VITALS: BP 113/58
[2022-10-07 16:01] VITALS: BP 110/54
[2022-10-07 17:39] LABS: HEMATOCRIT 33.3 % (36.0-47.0); HEMOGLOBIN 9.9 g/dl (12.0-15.5); MEAN CORPUSCULAR HEMOGLOBIN 29.5 pg (27.0-33.0); MEAN CORPUSCULAR HGB CONC 29.7 g/dl (32.0-36.5); MEAN CORPUSCULAR VOLUME 99.1 fl (80.0-96.0); PLATELET COUNT, AUTOMATED 219 10^3/uL (150-450); RED BLOOD COUNT 3.36 10^6/uL (4.00-5.40); WHITE BLOOD COUNT 9.7 10^3/uL (4.0-10.0)
[2022-10-07] MEDS: SENNA 8.6 MG TAB (SENOKOT) PO SCH (19:56)
[2022-10-07 20:00] VITALS: BP 118/57
[2022-10-07] MEDS: allopurinoL 100 MG TAB PO SCH (20:58)
[2022-10-07] MEDS: ATORVASTATIN 20 MG TAB PO SCH (20:58)
[2022-10-08] MEDS: LEVOTHYROXINE 75MCG TABLET (0.075MG) PO SCH (05:18)
[2022-10-08] MEDS: SODIUM CHLORIDE 0.9% INJ 10 ML SYR IV SCH ×2 (05:18→17:45)
[2022-10-08 06:00] VITALS: BP 111/57
[2022-10-08] MEDS ORDERED: HEPARIN 1,000UNITS/ML 10ML VIAL (FOR RADIOLOGY & DIALYSIS ONLY) IV PRN (06:40)
[2022-10-08] MEDS ORDERED: SODIUM CHLORIDE 0.9% 1000ML IV PRN (06:40)
[2022-10-08] MEDS ORDERED: HEPARIN 1,000UNITS/ML 10ML VIAL (FOR RADIOLOGY & DIALYSIS ONLY) XX SCH (06:40)
[2022-10-08] MEDS: DOCUSATE SODIUM 100MG CAPSULE PO SCH ×3 (07:05→21:00)
[2022-10-08] MEDS: guaiFENesin ER 600 MG TAB PO SCH ×2 (07:05→21:00)
[2022-10-08] MEDS: MIRALAX *UNIT DOSE* 17GM PACKET PO SCH ×2 (07:05→21:00)
[2022-10-08] MEDS: COMBIVENT RESPIMAT 100-20MCG INHALER 4GM INH SCH ×4 (08:00→20:00)
[2022-10-08] MEDS: GABAPENTIN 100 MG CAP PO SCH ×2 (08:57→22:03)
[2022-10-08] MEDS: PANTOPRAZOLE 40MG TAB (PROTONIX) PO SCH (08:57)
[2022-10-08] MEDS: MIDODRINE 5 MG TAB PO SCH ×3 (08:57→15:02)
[2022-10-08] MEDS: FOLIC ACID 1MG TAB PO SCH (08:57)
[2022-10-08] MEDS: CALCITRIOL 0.25 MCG CAP (S0169) PO SCH (08:57)
[2022-10-08] MEDS: SODIUM CHLORIDE NASAL 0.65% SPRAY BTL (OCEAN) SCH ×3 (08:58→21:00)
[2022-10-08] MEDS: NYSTATIN 100,000 UNITS/GM TOPICAL PWD 15GM TOP SCH ×2 (08:58→22:03)
[2022-10-08] MEDS: ACETAMINOPHEN TAB 650MG DOSE (2X325MG) PO PRN (08:58)
[2022-10-08] MEDS: REMEDY PHYTOPLEX Z-GUARD PASTE 113GM TUBE (FROM STOREROOM PRODUCT) TOP SCH ×3 (08:59→21:00)
[2022-10-08] MEDS: SYMBICORT 80/4.5MCG INHALER 6GM INH SCH ×2 (11:01→20:00)
[2022-10-08 11:23] VITALS: BP 122/65
[2022-10-08 16:00] VITALS: BP 125/60
[2022-10-08 20:00] VITALS: BP 140/66
[2022-10-08] MEDS: SENNA 8.6 MG TAB (SENOKOT) PO SCH (21:00)
[2022-10-08] MEDS: ATORVASTATIN 20 MG TAB PO SCH (22:02)
[2022-10-08] MEDS: allopurinoL 100 MG TAB PO SCH (22:03)
[2022-10-09] MEDS: SODIUM CHLORIDE 0.9% INJ 10 ML SYR IV SCH ×2 (05:33→16:13)
[2022-10-09] MEDS: LEVOTHYROXINE 75MCG TABLET (0.075MG) PO SCH (05:33)
[2022-10-09 05:55] LABS: BASO % 0.5 % (0.0-1.0); EOS # 0.3 10^3/uL (0.0-0.5); EOS % 3.7 % (0.0-3.0); HEMOGLOBIN 8.8 g/dl (12.0-15.5); LYMPH # 1.6 10^3/uL (1.5-5.0); LYMPH % 20.7 % (24.0-44.0); MEAN CORPUSCULAR HEMOGLOBIN 29.4 pg (27.0-33.0); MEAN CORPUSCULAR HGB CONC 29.3 g/dl (32.0-36.5); MEAN CORPUSCULAR VOLUME 100.3 fl (80.0-96.0); MONO # 0.8 10^3/uL (0.0-0.8); MONO % 10.2 % (2.0-8.0); NEUTROPHILS # 4.9 10^3/uL (1.5-8.5); NEUTROPHILS % 64.4 % (36.0-66.0); PLATELET COUNT, AUTOMATED 186 10^3/uL (150-450); RED BLOOD COUNT 2.99 10^6/uL (4.00-5.40); WHITE BLOOD COUNT 7.6 10^3/uL (4.0-10.0)
[2022-10-09 07:00] VITALS: BP 142/72
[2022-10-09] MEDS: SYMBICORT 80/4.5MCG INHALER 6GM INH SCH ×2 (07:09→20:06)
[2022-10-09] MEDS: COMBIVENT RESPIMAT 100-20MCG INHALER 4GM INH SCH ×4 (07:10→20:06)
[2022-10-09] MEDS: MIDODRINE 5 MG TAB PO SCH ×3 (08:00→16:11)
[2022-10-09] MEDS: MIRALAX *UNIT DOSE* 17GM PACKET PO SCH ×2 (09:00→20:45)
[2022-10-09] MEDS: guaiFENesin ER 600 MG TAB PO SCH ×3 (09:00→20:46)
[2022-10-09] MEDS: DOCUSATE SODIUM 100MG CAPSULE PO SCH ×2 (09:33→20:45)
[2022-10-09] MEDS: GABAPENTIN 100 MG CAP PO SCH ×2 (09:33→20:45)
[2022-10-09] MEDS: PANTOPRAZOLE 40MG TAB (PROTONIX) PO SCH (09:34)
[2022-10-09] MEDS: CALCITRIOL 0.25 MCG CAP (S0169) PO SCH (09:34)
[2022-10-09] MEDS: FOLIC ACID 1MG TAB PO SCH (09:34)
[2022-10-09] MEDS: SODIUM CHLORIDE NASAL 0.65% SPRAY BTL (OCEAN) SCH ×3 (09:35→20:46)
[2022-10-09] MEDS: NYSTATIN 100,000 UNITS/GM TOPICAL PWD 15GM TOP SCH ×2 (09:35→20:47)
[2022-10-09] MEDS: REMEDY PHYTOPLEX Z-GUARD PASTE 113GM TUBE (FROM STOREROOM PRODUCT) TOP SCH ×3 (09:36→20:47)
[2022-10-09 14:00] VITALS: BP 142/63
[2022-10-09 20:00] VITALS: BP 119/56
[2022-10-09] MEDS: allopurinoL 100 MG TAB PO SCH (20:45)
[2022-10-09] MEDS: SENNA 8.6 MG TAB (SENOKOT) PO SCH (20:45)
[2022-10-09] MEDS: ATORVASTATIN 20 MG TAB PO SCH (20:45)
[2022-10-10] MEDS: LEVOTHYROXINE 75MCG TABLET (0.075MG) PO SCH (05:21)
[2022-10-10] MEDS: SODIUM CHLORIDE 0.9% INJ 10 ML SYR IV PRN (05:22)
[2022-10-10] MEDS: SODIUM CHLORIDE 0.9% INJ 10 ML SYR IV SCH ×2 (05:22→17:41)
[2022-10-10 06:00] VITALS: BP 118/57
[2022-10-10] MEDS ORDERED: HEPARIN 1,000UNITS/ML 10ML VIAL (FOR RADIOLOGY & DIALYSIS ONLY) IV PRN (07:55)
[2022-10-10] MEDS ORDERED: HEPARIN 1,000UNITS/ML 10ML VIAL (FOR RADIOLOGY & DIALYSIS ONLY) XX SCH (07:55)
[2022-10-10] MEDS ORDERED: SODIUM CHLORIDE 0.9% 1000ML IV PRN (08:10)
[2022-10-10] MEDS: FOLIC ACID 1MG TAB PO SCH (08:44)
[2022-10-10] MEDS: MIDODRINE 5 MG TAB PO SCH ×3 (08:44→16:36)
[2022-10-10] MEDS: PANTOPRAZOLE 40MG TAB (PROTONIX) PO SCH (08:44)
[2022-10-10] MEDS: GABAPENTIN 100 MG CAP PO SCH ×2 (08:45→21:15)
[2022-10-10] MEDS: CALCITRIOL 0.25 MCG CAP (S0169) PO SCH (08:45)
[2022-10-10] MEDS: REMEDY PHYTOPLEX Z-GUARD PASTE 113GM TUBE (FROM STOREROOM PRODUCT) TOP SCH ×3 (08:46→21:18)
[2022-10-10] MEDS: guaiFENesin ER 600 MG TAB PO SCH ×2 (08:47→21:00)
[2022-10-10] MEDS: NYSTATIN 100,000 UNITS/GM TOPICAL PWD 15GM TOP SCH ×2 (08:47→21:00)
[2022-10-10] MEDS: SODIUM CHLORIDE NASAL 0.65% SPRAY BTL (OCEAN) SCH ×3 (08:47→21:17)
[2022-10-10] MEDS: DOCUSATE SODIUM 100MG CAPSULE PO SCH ×2 (08:48→21:15)
[2022-10-10] MEDS: MIRALAX *UNIT DOSE* 17GM PACKET PO SCH ×2 (08:48→21:16)
[2022-10-10] MEDS: SYMBICORT 80/4.5MCG INHALER 6GM INH SCH ×2 (08:58→19:50)
[2022-10-10] MEDS: COMBIVENT RESPIMAT 100-20MCG INHALER 4GM INH SCH ×4 (08:58→19:50)
[2022-10-10] MEDS: DICLOFENAC EPOLAMINE 1.3% PATCH TOP SCH ×2 (09:00→21:16)
[2022-10-10 14:00] VITALS: BP 119/62
[2022-10-10 16:36] VITALS: BP 109/68
[2022-10-10 20:00] VITALS: BP 137/62
[2022-10-10] MEDS: SENNA 8.6 MG TAB (SENOKOT) PO SCH (21:15)
[2022-10-10] MEDS: ATORVASTATIN 20 MG TAB PO SCH (21:15)
[2022-10-10] MEDS: allopurinoL 100 MG TAB PO SCH (21:15)
[2022-10-11] MEDS: LEVOTHYROXINE 75MCG TABLET (0.075MG) PO SCH (05:35)
[2022-10-11 06:00] VITALS: BP 115/55
[2022-10-11 07:03] LABS: BASO # 0.1 10^3/uL (0.0-0.2); BASO % 0.7 % (0.0-1.0); EOS # 0.2 10^3/uL (0.0-0.5); EOS % 2.9 % (0.0-3.0); HEMOGLOBIN 9.1 g/dl (12.0-15.5); LYMPH # 1.7 10^3/uL (1.5-5.0); LYMPH % 23.5 % (24.0-44.0); MEAN CORPUSCULAR HEMOGLOBIN 28.9 pg (27.0-33.0); MEAN CORPUSCULAR HGB CONC 28.4 g/dl (32.0-36.5); MEAN CORPUSCULAR VOLUME 101.6 fl (80.0-96.0); MONO # 0.8 10^3/uL (0.0-0.8); MONO % 10.4 % (2.0-8.0); NEUTROPHILS # 4.5 10^3/uL (1.5-8.5); NEUTROPHILS % 62.1 % (36.0-66.0); PLATELET COUNT, AUTOMATED 196 10^3/uL (150-450); RED BLOOD COUNT 3.15 10^6/uL (4.00-5.40); WHITE BLOOD COUNT 7.2 10^3/uL (4.0-10.0)
[2022-10-11 07:31] LABS: CALCIUM LEVEL 8.2 MG/DL (8.3-10.6); CREATININE FOR GFR 1.78 MG/DL (0.55-1.30); GLOMERULAR FILTRATION RATE 29.3 (>39); POTASSIUM SERUM 4.7 MMOL/L (3.5-5.1)
[2022-10-11] MEDS: COMBIVENT RESPIMAT 100-20MCG INHALER 4GM INH SCH ×4 (07:35→20:47)
[2022-10-11] MEDS: SYMBICORT 80/4.5MCG INHALER 6GM INH SCH ×2 (07:35→20:46)
[2022-10-11] MEDS: MIDODRINE 5 MG TAB PO SCH ×3 (08:00→16:21)
[2022-10-11] MEDS: MIRALAX *UNIT DOSE* 17GM PACKET PO SCH ×2 (08:42→20:13)
[2022-10-11] MEDS: CALCITRIOL 0.25 MCG CAP (S0169) PO SCH (08:43)
[2022-10-11] MEDS: GABAPENTIN 100 MG CAP PO SCH ×2 (08:43→20:12)
[2022-10-11] MEDS: PANTOPRAZOLE 40MG TAB (PROTONIX) PO SCH (08:43)
[2022-10-11] MEDS: FOLIC ACID 1MG TAB PO SCH (08:43)
[2022-10-11] MEDS: DOCUSATE SODIUM 100MG CAPSULE PO SCH ×2 (08:43→20:12)
[2022-10-11] MEDS: guaiFENesin ER 600 MG TAB PO SCH ×3 (08:43→20:13)
[2022-10-11] MEDS: DICLOFENAC EPOLAMINE 1.3% PATCH TOP SCH ×2 (08:43→20:13)
[2022-10-11] MEDS: SODIUM CHLORIDE NASAL 0.65% SPRAY BTL (OCEAN) SCH ×3 (08:44→20:15)
[2022-10-11] MEDS: SODIUM CHLORIDE 0.9% INJ 10 ML SYR IV SCH ×2 (08:44→18:01)
[2022-10-11] MEDS: REMEDY PHYTOPLEX Z-GUARD PASTE 113GM TUBE (FROM STOREROOM PRODUCT) TOP SCH ×3 (08:45→20:14)
[2022-10-11] MEDS: NYSTATIN 100,000 UNITS/GM TOPICAL PWD 15GM TOP SCH ×2 (08:45→20:14)
[2022-10-11 14:00] VITALS: BP 115/58
[2022-10-11 20:00] VITALS: BP 118/64
[2022-10-11] MEDS: allopurinoL 100 MG TAB PO SCH (20:12)
[2022-10-11] MEDS: SENNA 8.6 MG TAB (SENOKOT) PO SCH (20:12)
[2022-10-11] MEDS: ATORVASTATIN 20 MG TAB PO SCH (20:12)
[2022-10-12] MEDS: LEVOTHYROXINE 75MCG TABLET (0.075MG) PO SCH (05:22)
[2022-10-12] MEDS: SODIUM CHLORIDE 0.9% INJ 10 ML SYR IV SCH ×2 (05:23→17:53)
[2022-10-12 05:56] VITALS: BP 158/69
[2022-10-12] MEDS: guaiFENesin ER 600 MG TAB PO SCH ×2 (08:07→20:44)
[2022-10-12] MEDS: MIRALAX *UNIT DOSE* 17GM PACKET PO SCH ×2 (08:09→20:44)
[2022-10-12] MEDS: GABAPENTIN 100 MG CAP PO SCH ×2 (08:09→20:45)
[2022-10-12] MEDS: MIDODRINE 5 MG TAB PO SCH ×3 (08:09→16:24)
[2022-10-12] MEDS: DOCUSATE SODIUM 100MG CAPSULE PO SCH ×2 (08:09→20:44)
[2022-10-12] MEDS: FOLIC ACID 1MG TAB PO SCH (08:09)
[2022-10-12] MEDS: CALCITRIOL 0.25 MCG CAP (S0169) PO SCH (08:10)
[2022-10-12] MEDS: SODIUM CHLORIDE NASAL 0.65% SPRAY BTL (OCEAN) SCH ×3 (08:10→20:46)
[2022-10-12] MEDS: PANTOPRAZOLE 40MG TAB (PROTONIX) PO SCH (08:10)
[2022-10-12] MEDS: DICLOFENAC EPOLAMINE 1.3% PATCH TOP SCH ×2 (08:10→20:45)
[2022-10-12] MEDS: NYSTATIN 100,000 UNITS/GM TOPICAL PWD 15GM TOP SCH ×2 (08:11→20:44)
[2022-10-12] MEDS: REMEDY PHYTOPLEX Z-GUARD PASTE 113GM TUBE (FROM STOREROOM PRODUCT) TOP SCH ×3 (08:12→20:47)
[2022-10-12] MEDS: COMBIVENT RESPIMAT 100-20MCG INHALER 4GM INH SCH ×4 (08:14→20:00)
[2022-10-12] MEDS: SYMBICORT 80/4.5MCG INHALER 6GM INH SCH ×2 (08:14→20:36)
[2022-10-12] MEDS: DARBEPOETIN 100MCG/0.5ML *NON-DIALYSIS* SYRINGE SC SCH (09:00)
[2022-10-12] MEDS ORDERED: methylPREDNISolone 40MG 1ML VIAL IV ONE (11:00)
[2022-10-12 11:34] LABS: CK-MB VALUE MASS 2.1 NG/ML (<3.6); MB/CK RELATIVE INDEX 2.5 (< OR =4)
[2022-10-12 14:00] VITALS: BP 128/60
[2022-10-12 20:25] VITALS: BP 122/60
[2022-10-12] MEDS: ATORVASTATIN 20 MG TAB PO SCH (20:45)
[2022-10-12] MEDS: SENNA 8.6 MG TAB (SENOKOT) PO SCH (20:45)
[2022-10-12] MEDS: allopurinoL 100 MG TAB PO SCH (20:45)
[2022-10-13 05:29] VITALS: BP 122/60
[2022-10-13] MEDS: LEVOTHYROXINE 75MCG TABLET (0.075MG) PO SCH (06:07)
[2022-10-13] MEDS: SODIUM CHLORIDE 0.9% INJ 10 ML SYR IV SCH ×2 (06:08→17:12)
[2022-10-13 07:01] LABS: HEMATOCRIT 29.6 % (36.0-47.0); HEMOGLOBIN 8.5 g/dl (12.0-15.5); MEAN CORPUSCULAR HGB CONC 28.7 g/dl (32.0-36.5); PLATELET COUNT, AUTOMATED 185 10^3/uL (150-450); RED BLOOD COUNT 2.93 10^6/uL (4.00-5.40); WHITE BLOOD COUNT 7.7 10^3/uL (4.0-10.0)
[2022-10-13 07:26] LABS: ALBUMIN 2.5 G/DL (3.2-5.2); CALCIUM LEVEL 7.6 MG/DL (8.3-10.6); CREATININE FOR GFR 3.19 MG/DL (0.55-1.30); GLOMERULAR FILTRATION RATE 14.9 (>39); PHOSPHORUS LEVEL 4.3 MG/DL (2.4-5.1); POTASSIUM SERUM 5.6 MMOL/L (3.5-5.1)
[2022-10-13] MEDS: MIDODRINE 5 MG TAB PO SCH ×2 (08:00→08:30)
[2022-10-13] MEDS: GABAPENTIN 100 MG CAP PO SCH ×2 (08:29→21:03)
[2022-10-13] MEDS: FOLIC ACID 1MG TAB PO SCH (08:29)
[2022-10-13] MEDS: DOCUSATE SODIUM 100MG CAPSULE PO SCH ×2 (08:29→21:03)
[2022-10-13] MEDS: PANTOPRAZOLE 40MG TAB (PROTONIX) PO SCH (08:29)
[2022-10-13] MEDS: CALCITRIOL 0.25 MCG CAP (S0169) PO SCH (08:29)
[2022-10-13] MEDS: MIRALAX *UNIT DOSE* 17GM PACKET PO SCH ×2 (08:30→21:00)
[2022-10-13] MEDS: DICLOFENAC EPOLAMINE 1.3% PATCH TOP SCH ×2 (08:30→21:04)
[2022-10-13] MEDS: SODIUM CHLORIDE NASAL 0.65% SPRAY BTL (OCEAN) SCH ×3 (08:30→21:38)
[2022-10-13] MEDS: guaiFENesin ER 600 MG TAB PO SCH (08:30)
[2022-10-13] MEDS: REMEDY PHYTOPLEX Z-GUARD PASTE 113GM TUBE (FROM STOREROOM PRODUCT) TOP SCH ×3 (08:31→21:38)
[2022-10-13] MEDS: NYSTATIN 100,000 UNITS/GM TOPICAL PWD 15GM TOP SCH ×2 (08:31→21:08)
[2022-10-13] MEDS ORDERED: HEPARIN 1,000UNITS/ML 10ML VIAL (FOR RADIOLOGY & DIALYSIS ONLY) IV PRN (09:40)
[2022-10-13] MEDS ORDERED: HEPARIN 1,000UNITS/ML 10ML VIAL (FOR RADIOLOGY & DIALYSIS ONLY) XX SCH (09:40)
[2022-10-13] MEDS ORDERED: SODIUM CHLORIDE 0.9% 1000ML IV PRN (09:40)
[2022-10-13] MEDS: SYMBICORT 160/4.5MCG INHALER 6GM INH SCH ×2 (09:54→20:16)
[2022-10-13] MEDS: COMBIVENT RESPIMAT 100-20MCG INHALER 4GM INH SCH ×4 (09:54→20:17)
[2022-10-13] MEDS: predniSONE 20 MG TAB PO SCH (10:11)
[2022-10-13] MEDS: MIDODRINE 2.5 MG TAB PO SCH ×2 (12:47→17:10)
[2022-10-13] MEDS: LACTOBACILLUS ACIDOPHILUS CAP (BACID) PO SCH ×3 (12:48→21:02)
[2022-10-13] MEDS: guaiFENesin 200 MG TAB PO SCH ×3 (13:00→21:03)
[2022-10-13] MEDS: CEFEPIME HCL 1 GM in D5W MINI-BAG PLUS 50 ML IV SCH (17:09)
[2022-10-13] MEDS: AZITHROMYCIN 250MG TABLET PO SCH (17:10)
[2022-10-13 19:21] LABS: CK-MB VALUE MASS 2.1 NG/ML (<3.6); MB/CK RELATIVE INDEX 2.83 (< OR =4)
[2022-10-13 20:00] VITALS: BP 110/54
[2022-10-13] MEDS: SENNA 8.6 MG TAB (SENOKOT) PO SCH (21:00)
[2022-10-13] MEDS: ATORVASTATIN 20 MG TAB PO SCH (21:02)
[2022-10-13] MEDS: allopurinoL 100 MG TAB PO SCH (21:02)
[2022-10-14] MEDS: guaiFENesin 200 MG TAB PO SCH ×6 (01:11→22:13)
[2022-10-14] MEDS: SODIUM CHLORIDE 0.9% INJ 10 ML SYR IV SCH ×2 (05:12→17:41)
[2022-10-14] MEDS: SODIUM CHLORIDE 0.9% INJ 10 ML SYR IV PRN (05:12)
[2022-10-14] MEDS: LEVOTHYROXINE 75MCG TABLET (0.075MG) PO SCH (05:12)
[2022-10-14 05:24] VITALS: BP 125/58
[2022-10-14] MEDS: SYMBICORT 160/4.5MCG INHALER 6GM INH SCH ×2 (07:29→20:30)
[2022-10-14] MEDS: COMBIVENT RESPIMAT 100-20MCG INHALER 4GM INH SCH ×4 (07:29→20:30)
[2022-10-14] MEDS: MIRALAX *UNIT DOSE* 17GM PACKET PO SCH ×2 (09:00→22:15)
[2022-10-14 09:13] VITALS: BP 109/58
[2022-10-14] MEDS: predniSONE 20 MG TAB PO SCH (09:14)
[2022-10-14] MEDS: GABAPENTIN 100 MG CAP PO SCH ×2 (09:14→22:12)
[2022-10-14] MEDS: FOLIC ACID 1MG TAB PO SCH (09:14)
[2022-10-14] MEDS: CALCITRIOL 0.25 MCG CAP (S0169) PO SCH (09:14)
[2022-10-14] MEDS: AZITHROMYCIN 250MG TABLET PO SCH (09:14)
[2022-10-14] MEDS: PANTOPRAZOLE 40MG TAB (PROTONIX) PO SCH (09:14)
[2022-10-14] MEDS: DOCUSATE SODIUM 100MG CAPSULE PO SCH ×2 (09:14→22:13)
[2022-10-14] MEDS: MIDODRINE 2.5 MG TAB PO SCH ×3 (09:15→16:13)
[2022-10-14] MEDS: FONDAPARINUX SODIUM 2.5 MG/0.5 ML SYRINGE SC SCH (09:15)
[2022-10-14] MEDS: LACTOBACILLUS ACIDOPHILUS CAP (BACID) PO SCH ×4 (09:15→22:13)
[2022-10-14] MEDS: DICLOFENAC EPOLAMINE 1.3% PATCH TOP SCH ×2 (09:16→21:13)
[2022-10-14] MEDS: NYSTATIN 100,000 UNITS/GM TOPICAL PWD 15GM TOP SCH ×2 (09:16→22:14)
[2022-10-14] MEDS: SODIUM CHLORIDE NASAL 0.65% SPRAY BTL (OCEAN) SCH ×3 (09:17→22:13)
[2022-10-14] MEDS: REMEDY PHYTOPLEX Z-GUARD PASTE 113GM TUBE (FROM STOREROOM PRODUCT) TOP SCH ×3 (09:17→22:14)
[2022-10-14 12:07] VITALS: BP 110/62
[2022-10-14 14:00] VITALS: BP 131/63
[2022-10-14 16:13] VITALS: BP 112/62
[2022-10-14] MEDS: CEFEPIME HCL 1 GM in D5W MINI-BAG PLUS 50 ML IV SCH (17:42)
[2022-10-14 20:10] VITALS: BP 147/73
[2022-10-14] MEDS: ATORVASTATIN 20 MG TAB PO SCH (22:12)
[2022-10-14] MEDS: allopurinoL 100 MG TAB PO SCH (22:13)
[2022-10-14] MEDS: SENNA 8.6 MG TAB (SENOKOT) PO SCH (22:13)
[2022-10-15] MEDS: guaiFENesin 200 MG TAB PO SCH ×6 (01:00→20:34)
[2022-10-15] MEDS: LEVOTHYROXINE 75MCG TABLET (0.075MG) PO SCH (05:14)
[2022-10-15] MEDS: SODIUM CHLORIDE 0.9% INJ 10 ML SYR IV PRN (05:14)
[2022-10-15] MEDS: SODIUM CHLORIDE 0.9% INJ 10 ML SYR IV SCH ×2 (05:14→17:44)
[2022-10-15 06:00] VITALS: BP 142/72
[2022-10-15] MEDS: COMBIVENT RESPIMAT 100-20MCG INHALER 4GM INH SCH ×4 (07:18→21:26)
[2022-10-15] MEDS: SYMBICORT 160/4.5MCG INHALER 6GM INH SCH ×2 (07:18→21:26)
[2022-10-15 08:43] VITALS: BP 125/63
[2022-10-15] MEDS: REMEDY PHYTOPLEX Z-GUARD PASTE 113GM TUBE (FROM STOREROOM PRODUCT) TOP SCH ×3 (09:00→20:36)
[2022-10-15] MEDS: predniSONE 20 MG TAB PO SCH (09:35)
[2022-10-15] MEDS: MIRALAX *UNIT DOSE* 17GM PACKET PO SCH ×2 (09:35→20:33)
[2022-10-15] MEDS: DOCUSATE SODIUM 100MG CAPSULE PO SCH ×2 (09:35→20:35)
[2022-10-15] MEDS: FOLIC ACID 1MG TAB PO SCH (09:35)
[2022-10-15] MEDS: LACTOBACILLUS ACIDOPHILUS CAP (BACID) PO SCH ×4 (09:35→20:35)
[2022-10-15] MEDS: MIDODRINE 2.5 MG TAB PO SCH ×3 (09:35→16:00)
[2022-10-15] MEDS: AZITHROMYCIN 250MG TABLET PO SCH (09:36)
[2022-10-15] MEDS: GABAPENTIN 100 MG CAP PO SCH ×2 (09:36→20:34)
[2022-10-15] MEDS: CALCITRIOL 0.25 MCG CAP (S0169) PO SCH (09:36)
[2022-10-15] MEDS: PANTOPRAZOLE 40MG TAB (PROTONIX) PO SCH (09:36)
[2022-10-15] MEDS: DICLOFENAC EPOLAMINE 1.3% PATCH TOP SCH ×2 (09:36→20:33)
[2022-10-15] MEDS: NYSTATIN 100,000 UNITS/GM TOPICAL PWD 15GM TOP SCH ×2 (09:37→20:35)
[2022-10-15] MEDS: SODIUM CHLORIDE NASAL 0.65% SPRAY BTL (OCEAN) SCH ×3 (09:38→20:35)
[2022-10-15 14:00] VITALS: BP 134/63
[2022-10-15] MEDS: CEFEPIME HCL 1 GM in D5W MINI-BAG PLUS 50 ML IV SCH (17:43)
[2022-10-15 20:00] VITALS: BP 118/68
[2022-10-15] MEDS: allopurinoL 100 MG TAB PO SCH (20:34)
[2022-10-15] MEDS: SENNA 8.6 MG TAB (SENOKOT) PO SCH (20:34)
[2022-10-15] MEDS: ATORVASTATIN 20 MG TAB PO SCH (20:35)
[2022-10-16] MEDS: guaiFENesin 200 MG TAB PO SCH ×3 (00:57→08:12)
[2022-10-16] MEDS: LEVOTHYROXINE 75MCG TABLET (0.075MG) PO SCH (05:24)
[2022-10-16] MEDS: SODIUM CHLORIDE 0.9% INJ 10 ML SYR IV SCH ×2 (05:25→17:04)
[2022-10-16 05:54] VITALS: BP 118/60
[2022-10-16] MEDS ORDERED: HEPARIN 1,000UNITS/ML 10ML VIAL (FOR RADIOLOGY & DIALYSIS ONLY) IV PRN (06:00)
[2022-10-16] MEDS ORDERED: HEPARIN 1,000UNITS/ML 10ML VIAL (FOR RADIOLOGY & DIALYSIS ONLY) XX SCH (06:00)
[2022-10-16] MEDS ORDERED: SODIUM CHLORIDE 0.9% 1000ML IV PRN (06:00)
[2022-10-16 07:09] LABS: BASO % 0.3 % (0.0-1.0); EOS # 0.1 10^3/uL (0.0-0.5); EOS % 1.4 % (0.0-3.0); HEMATOCRIT 31.8 % (36.0-47.0); HEMOGLOBIN 9.2 g/dl (12.0-15.5); LYMPH # 1.1 10^3/uL (1.5-5.0); LYMPH % 15.6 % (24.0-44.0); MEAN CORPUSCULAR HEMOGLOBIN 28.8 pg (27.0-33.0); MEAN CORPUSCULAR HGB CONC 28.9 g/dl (32.0-36.5); MEAN CORPUSCULAR VOLUME 99.4 fl (80.0-96.0); MONO # 0.8 10^3/uL (0.0-0.8); MONO % 10.4 % (2.0-8.0); NEUTROPHILS # 5.3 10^3/uL (1.5-8.5); PLATELET COUNT, AUTOMATED 203 10^3/uL (150-450); WHITE BLOOD COUNT 7.3 10^3/uL (4.0-10.0)
[2022-10-16 07:35] LABS: CALCIUM LEVEL 7.3 MG/DL (8.3-10.6); CREATININE FOR GFR 2.24 MG/DL (0.55-1.30); GLOMERULAR FILTRATION RATE 22.4 (>39); POTASSIUM SERUM 4.6 MMOL/L (3.5-5.1)
[2022-10-16] MEDS: DICLOFENAC EPOLAMINE 1.3% PATCH TOP SCH ×2 (08:05→20:14)
[2022-10-16] MEDS: GABAPENTIN 100 MG CAP PO SCH ×2 (08:05→20:24)
[2022-10-16] MEDS: MIDODRINE 2.5 MG TAB PO SCH ×3 (08:05→16:00)
[2022-10-16] MEDS: PANTOPRAZOLE 40MG TAB (PROTONIX) PO SCH (08:06)
[2022-10-16] MEDS: CALCITRIOL 0.25 MCG CAP (S0169) PO SCH (08:06)
[2022-10-16] MEDS: LACTOBACILLUS ACIDOPHILUS CAP (BACID) PO SCH ×4 (08:06→20:24)
[2022-10-16] MEDS: predniSONE 20 MG TAB PO SCH (08:06)
[2022-10-16] MEDS: FOLIC ACID 1MG TAB PO SCH (08:06)
[2022-10-16] MEDS: DOCUSATE SODIUM 100MG CAPSULE PO SCH ×2 (08:06→20:24)
[2022-10-16] MEDS: SODIUM CHLORIDE NASAL 0.65% SPRAY BTL (OCEAN) SCH ×3 (08:08→20:15)
[2022-10-16] MEDS: FONDAPARINUX SODIUM 2.5 MG/0.5 ML SYRINGE SC SCH (08:11)
[2022-10-16] MEDS: MIRALAX *UNIT DOSE* 17GM PACKET PO SCH ×2 (08:12→20:14)
[2022-10-16] MEDS: REMEDY PHYTOPLEX Z-GUARD PASTE 113GM TUBE (FROM STOREROOM PRODUCT) TOP SCH ×3 (08:17→20:15)
[2022-10-16] MEDS: NYSTATIN 100,000 UNITS/GM TOPICAL PWD 15GM TOP SCH ×2 (08:17→20:15)
[2022-10-16] MEDS: SYMBICORT 160/4.5MCG INHALER 6GM INH SCH ×2 (08:48→19:00)
[2022-10-16] MEDS: COMBIVENT RESPIMAT 100-20MCG INHALER 4GM INH SCH ×4 (08:49→19:00)
[2022-10-16 16:15] VITALS: BP 133/70
[2022-10-16] MEDS ORDERED: LevoFLOXacin 750 MG TABLET PO ONE (18:00)
[2022-10-16 20:10] VITALS: BP 122/58
[2022-10-16] MEDS: SENNA 8.6 MG TAB (SENOKOT) PO SCH (20:23)
[2022-10-16] MEDS: allopurinoL 100 MG TAB PO SCH (20:24)
[2022-10-16] MEDS: ATORVASTATIN 20 MG TAB PO SCH (20:24)
[2022-10-17] MEDS: SIMETHICONE 80MG CHEW TAB PO PRN (01:44)
[2022-10-17] MEDS: LEVOTHYROXINE 75MCG TABLET (0.075MG) PO SCH (05:31)
[2022-10-17] MEDS: SODIUM CHLORIDE 0.9% INJ 10 ML SYR IV SCH ×2 (05:33→17:06)
[2022-10-17] MEDS ORDERED: SODIUM CHLORIDE 0.9% 1000ML IV PRN (06:00)
[2022-10-17] MEDS ORDERED: HEPARIN 1,000UNITS/ML 10ML VIAL (FOR RADIOLOGY & DIALYSIS ONLY) IV PRN (06:00)
[2022-10-17] MEDS ORDERED: HEPARIN 1,000UNITS/ML 10ML VIAL (FOR RADIOLOGY & DIALYSIS ONLY) XX SCH (06:00)
[2022-10-17 06:11] VITALS: BP 104/55
[2022-10-17] MEDS: MIRALAX *UNIT DOSE* 17GM PACKET PO SCH ×2 (07:20→20:42)
[2022-10-17] MEDS: DICLOFENAC EPOLAMINE 1.3% PATCH TOP SCH ×2 (07:21→20:43)
[2022-10-17] MEDS: CALCITRIOL 0.25 MCG CAP (S0169) PO SCH (07:24)
[2022-10-17] MEDS: GABAPENTIN 100 MG CAP PO SCH ×2 (07:24→20:44)
[2022-10-17] MEDS: DOCUSATE SODIUM 100MG CAPSULE PO SCH ×2 (07:24→20:43)
[2022-10-17] MEDS: predniSONE 20 MG TAB PO SCH (07:24)
[2022-10-17] MEDS: MIDODRINE 2.5 MG TAB PO SCH ×3 (07:24→15:37)
[2022-10-17] MEDS: FOLIC ACID 1MG TAB PO SCH (07:25)
[2022-10-17] MEDS: NYSTATIN 100,000 UNITS/GM TOPICAL PWD 15GM TOP SCH ×2 (07:25→20:42)
[2022-10-17] MEDS: LACTOBACILLUS ACIDOPHILUS CAP (BACID) PO SCH ×4 (07:25→20:44)
[2022-10-17] MEDS: PANTOPRAZOLE 40MG TAB (PROTONIX) PO SCH (07:25)
[2022-10-17] MEDS: SODIUM CHLORIDE NASAL 0.65% SPRAY BTL (OCEAN) SCH ×3 (07:26→20:46)
[2022-10-17] MEDS: COMBIVENT RESPIMAT 100-20MCG INHALER 4GM INH SCH ×4 (08:00→21:05)
[2022-10-17] MEDS: REMEDY PHYTOPLEX Z-GUARD PASTE 113GM TUBE (FROM STOREROOM PRODUCT) TOP SCH ×3 (09:00→20:43)
[2022-10-17] MEDS: SYMBICORT 160/4.5MCG INHALER 6GM INH SCH ×2 (12:02→21:05)
[2022-10-17 15:29] VITALS: BP 115/70
[2022-10-17 20:00] VITALS: BP 117/57
[2022-10-17] MEDS: SENNA 8.6 MG TAB (SENOKOT) PO SCH (20:44)
[2022-10-17] MEDS: ATORVASTATIN 20 MG TAB PO SCH (20:44)
[2022-10-17] MEDS: allopurinoL 100 MG TAB PO SCH (20:44)
[2022-10-18] MEDS: SODIUM CHLORIDE 0.9% INJ 10 ML SYR IV SCH (05:38)
[2022-10-18] MEDS: LEVOTHYROXINE 75MCG TABLET (0.075MG) PO SCH (05:38)
[2022-10-18] MEDS: SIMETHICONE 80MG CHEW TAB PO PRN (05:40)
[2022-10-18 06:00] VITALS: BP 109/56
[2022-10-18 06:13] LABS: BASO % 0.5 % (0.0-1.0); EOS # 0.1 10^3/uL (0.0-0.5); EOS % 2.2 % (0.0-3.0); HEMATOCRIT 30.9 % (36.0-47.0); LYMPH # 1.2 10^3/uL (1.5-5.0); LYMPH % 20.6 % (24.0-44.0); MEAN CORPUSCULAR HEMOGLOBIN 28.8 pg (27.0-33.0); MEAN CORPUSCULAR HGB CONC 29.1 g/dl (32.0-36.5); MEAN CORPUSCULAR VOLUME 98.7 fl (80.0-96.0); MONO # 0.7 10^3/uL (0.0-0.8); MONO % 11.2 % (2.0-8.0); NEUTROPHILS # 3.8 10^3/uL (1.5-8.5); NEUTROPHILS % 65.2 % (36.0-66.0); PLATELET COUNT, AUTOMATED 219 10^3/uL (150-450); RED BLOOD COUNT 3.13 10^6/uL (4.00-5.40); WHITE BLOOD COUNT 5.9 10^3/uL (4.0-10.0)
[2022-10-18 06:31] LABS: POTASSIUM SERUM 3.7 MMOL/L (3.5-5.1)
[2022-10-18 06:37] LABS: CALCIUM LEVEL 7.2 MG/DL (8.3-10.6)
[2022-10-18 06:40] LABS: CREATININE FOR GFR 1.79 MG/DL (0.55-1.30); GLOMERULAR FILTRATION RATE 29.1 (>39)
[2022-10-18] MEDS: LACTOBACILLUS ACIDOPHILUS CAP (BACID) PO SCH (08:07)
[2022-10-18] MEDS: DOCUSATE SODIUM 100MG CAPSULE PO SCH (08:07)
[2022-10-18] MEDS: CALCITRIOL 0.25 MCG CAP (S0169) PO SCH (08:07)
[2022-10-18] MEDS: FOLIC ACID 1MG TAB PO SCH (08:07)
[2022-10-18] MEDS: GABAPENTIN 100 MG CAP PO SCH (08:07)
[2022-10-18] MEDS: MIDODRINE 2.5 MG TAB PO SCH (08:07)
[2022-10-18] MEDS: PANTOPRAZOLE 40MG TAB (PROTONIX) PO SCH (08:08)
[2022-10-18] MEDS: DICLOFENAC EPOLAMINE 1.3% PATCH TOP SCH ×2 (08:09→08:13)
[2022-10-18] MEDS: SODIUM CHLORIDE NASAL 0.65% SPRAY BTL (OCEAN) SCH (08:11)
[2022-10-18] MEDS: MIRALAX *UNIT DOSE* 17GM PACKET PO SCH (08:12)
[2022-10-18] MEDS: NYSTATIN 100,000 UNITS/GM TOPICAL PWD 15GM TOP SCH (08:12)
[2022-10-18] MEDS: REMEDY PHYTOPLEX Z-GUARD PASTE 113GM TUBE (FROM STOREROOM PRODUCT) TOP SCH (08:15)
[2022-10-18] MEDS: FONDAPARINUX SODIUM 2.5 MG/0.5 ML SYRINGE SC SCH (08:28)
[2022-10-18] MEDS: COMBIVENT RESPIMAT 100-20MCG INHALER 4GM INH SCH (08:39)
[2022-10-18] MEDS: SYMBICORT 160/4.5MCG INHALER 6GM INH SCH (08:39)
[2022-10-18] MEDS ORDERED: predniSONE 10 MG TAB PO SCH (09:00)
[2022-10-18] MEDS ORDERED: NITR4TASL SL (10:53)
[2022-10-18] MEDS ORDERED: LEVO75TA4 PO (10:53)
[2022-10-18] MEDS ORDERED: GABA-1171 PO (10:53)
[2022-10-18] MEDS ORDERED: PANT40TA29 PO (10:53)
[2022-10-18] MEDS ORDERED: ATOR80TA59 PO (10:53)
[2022-10-18] MEDS ORDERED: PRED10TA2 PO (10:53)
[2022-10-18] MEDS ORDERED: SYMB16INH INH (10:53)
[2022-10-18] MEDS ORDERED: IPRA0.00 NEB (10:53)
[2022-10-18] MEDS ORDERED: ALLO100T PO (10:53)
[2022-10-18] MEDS ORDERED: CALC1CAP31 PO (10:53)
[2022-10-18] MEDS ORDERED: ALBU2.5V10 NEB (10:53)
[2022-10-18] MEDS ORDERED: MIDO2.5T PO (10:53)
[2022-10-18] MEDS ORDERED: FOND10SO SC (10:53)
[2022-10-18] MEDS ORDERED: LevoFLOXacin 500 MG TABLET PO SCH (18:00)
== END 2022-10-18 12:30 | disposition home health service (06) | DRG 73 ==
LOC: M PM&R 16:37
PROVIDERS: ADMIT Physical Medicine & Rehabilitation; ATTEND Physical Medicine & Rehabilitation
PROC: 5A1D70Z Performance of Urinary Filtration, Intermittent, Less than 6 Hours Per Day (ICD-10-PCS; principal; 2022-09-28)
PROC: 30233N1 Transfusion of Nonautologous Red Blood Cells into Peripheral Vein, Percutaneous Approach (ICD-10-PCS; 2022-10-01)
DX: G62.0 Drug-induced polyneuropathy (principal); N18.6 End stage renal disease; I50.23 Acute on chronic systolic (congestive) heart failure; J18.9 Pneumonia, unspecified organism; C34.32 Malignant neoplasm of lower lobe, left bronchus or lung; C79.89 Secondary malignant neoplasm of other specified sites; J44.1 Chronic obstructive pulmonary disease with (acute) exacerbation; I25.10 Atherosclerotic heart disease of native coronary artery without angina pectoris; G57.92 Unspecified mononeuropathy of left lower limb; I48.91 Unspecified atrial fibrillation; D50.0 Iron deficiency anemia secondary to blood loss (chronic); R00.1 Bradycardia, unspecified; E03.9 Hypothyroidism, unspecified; D63.1 Anemia in chronic kidney disease; D63.0 Anemia in neoplastic disease; R53.1 Weakness; M79.81 Nontraumatic hematoma of soft tissue; I25.2 Old myocardial infarction; Z99.2 Dependence on renal dialysis; Z95.5 Presence of coronary angioplasty implant and graft; Z74.1 Need for assistance with personal care; Z74.09 Other reduced mobility; Z86.718 Personal history of other venous thrombosis and embolism; T45.1X5A Adverse effect of antineoplastic and immunosuppressive drugs, initial encounter; Z99.81 Dependence on supplemental oxygen; Z86.711 Personal history of pulmonary embolism; Z79.890 Hormone replacement therapy; Z95.828 Presence of other vascular implants and grafts; Z87.891 Personal history of nicotine dependence

== ENCOUNTER → 2022-11-06 | Outpatient (CLI) | payer MEDICARE, BC, OTHER ==
[~2022-11-06] MED LIST changes: +GABA-1171 PO; +MIDO2.5T PO; +PRED10TA2 PO; +SYMB16INH INH
== END ==
LOC: M PLAIMG 12:07
PROVIDERS: ATTEND Internal Medicine Medical Oncology
DX: C34.90 Malignant neoplasm of unspecified part of unspecified bronchus or lung (principal)

== ENCOUNTER → 2023-01-31 | Outpatient (CLI) | payer MEDICARE, BC, OTHER ==
[~2023-01-31] MED LIST changes: +GASTROGRAFIN SOLUTION 30ML As Ordered ONE
== END ==
LOC: M RAD 12:04
PROVIDERS: ATTEND Internal Medicine Medical Oncology
DX: C34.90 Malignant neoplasm of unspecified part of unspecified bronchus or lung (principal)
CPT/HCPCS: 71250; 74176; Q9963

== ENCOUNTER → 2023-03-14 | Outpatient (CLI) | payer MEDICARE, BC, OTHER ==
[~2023-03-14] MED LIST changes: -GASTROGRAFIN SOLUTION 30ML As Ordered ONE; +LANT1000
== END ==
LOC: M RAD 10:13
PROVIDERS: ATTEND Surgery Vascular Surgery
DX: N18.6 End stage renal disease (principal)

== ENCOUNTER → 2023-05-30 | Outpatient (CLI) | payer MEDICARE, BC, OTHER | LOC: M RAD 13:47 | PROVIDERS: ATTEND Internal Medicine Medical Oncology | DX: C34.90 Malignant neoplasm of unspecified part of unspecified bronchus or lung (principal) ==

== ENCOUNTER → 2023-06-13 | Outpatient (CLI) | payer MEDICARE, BC, OTHER ==
[~2023-06-13] MED LIST changes: +HEPARIN 1,000UNITS/ML 10ML VIAL (FOR RADIOLOGY & DIALYSIS ONLY) As Ordered ONE; +ISOVUE-300 61% 100ML VIAL As Ordered ONE; -LANT1000; +LANT1000 PO; +LIDOCAINE 1% MDV 20ML VIAL As Ordered ONE; +MIDAZOLAM INJ 2MG/2ML VIAL As Ordered ONE; +ceFAZolin 2 GM/D5W 50 ML IV BAG As Ordered ONE; +ceFAZolin SOD 2 GM in IV 1 EA IV ONE; +fentaNYL 100 MCG/2 ML INJECTION As Ordered ONE
[2023-06-13 07:07] VITALS: TEMP 97.6
[2023-06-13 07:41] LABS: HEMATOCRIT 38.7 % (36.0-47.0); HEMOGLOBIN 12.2 g/dl (12.0-15.5); MEAN CORPUSCULAR HEMOGLOBIN 28.6 pg (27.0-33.0); MEAN CORPUSCULAR HGB CONC 31.5 g/dl (32.0-36.5); MEAN CORPUSCULAR VOLUME 90.8 fl (80.0-96.0); PLATELET COUNT, AUTOMATED 120 10^3/uL (150-450); RED BLOOD COUNT 4.26 10^6/uL (4.00-5.40); WHITE BLOOD COUNT 7.8 10^3/uL (4.0-10.0)
[2023-06-13 07:47] LABS: INR 0.99; PROTHROMBIN TIME 13.3 SECONDS (12.5-14.5)
[2023-06-13 07:48] LABS: PARTIAL THROMBOPLASTIN TIME 36.8 SECONDS (24.8-34.2)
[2023-06-13 12:00] VITALS: BP 123/58; O2SAT 95
== END ==
LOC: M IRPRO 06:45
PROVIDERS: ATTEND Surgery Vascular Surgery
DX: N18.6 End stage renal disease (principal); Z99.2 Dependence on renal dialysis; C34.92 Malignant neoplasm of unspecified part of left bronchus or lung
CPT/HCPCS: 36415; 36902; 84132; 85027; 85610; 85730; 86850; 99152; 99153; C1769; C1887; C1894; J0690; J2250; J3010; Q9967

== ENCOUNTER → 2023-10-03 | Outpatient (CLI) | payer MEDICARE, BC, OTHER ==
[~2023-10-03] MED LIST changes: -HEPARIN 1,000UNITS/ML 10ML VIAL (FOR RADIOLOGY & DIALYSIS ONLY) As Ordered ONE; -ISOVUE-300 61% 100ML VIAL As Ordered ONE; +ISOVUE-370 76% 100ML VIAL ONE; +LEVO1TAB39 PO; -LIDOCAINE 1% MDV 20ML VIAL As Ordered ONE; -MIDAZOLAM INJ 2MG/2ML VIAL As Ordered ONE; -ceFAZolin 2 GM/D5W 50 ML IV BAG As Ordered ONE; -ceFAZolin SOD 2 GM in IV 1 EA IV ONE; -fentaNYL 100 MCG/2 ML INJECTION As Ordered ONE
== END ==
LOC: M PLAIMG 10:18
PROVIDERS: ATTEND Internal Medicine Hematology & Oncology
DX: C34.90 Malignant neoplasm of unspecified part of unspecified bronchus or lung (principal)
CPT/HCPCS: 71260; Q9967

== ENCOUNTER → 2024-01-08 | Outpatient (REF) | payer MEDICARE, OTHER ==
[~2024-01-08] MED LIST changes: -ISOVUE-370 76% 100ML VIAL ONE; -MIRA1POW3 PO; +MIRA33506 PO
== END ==
LOC: M LAB REF 11:26
PROVIDERS: ATTEND Family Medicine
DX: E03.9 Hypothyroidism, unspecified (principal)

== ENCOUNTER 2024-02-23 06:12 | Inpatient (IN) | payer MEDICARE, BC ==
[~2024-02-23] VITALS: Ht 165.1 cm; Wt 110.3 kg
[2024-02-23] MEDS: LEVOTHYROXINE 75MCG TABLET (0.075MG) PO SCH (06:00)
[2024-02-23 06:38] LABS: VENOUS BASE EXCESS -1.3 (-2.0-2.0); VENOUS O2 SATURATION 62.4 % (60.0-80.0); VENOUS PARTIAL PRESSURE CO2 49.7 mmHg (38.0-50.0); VENOUS PARTIAL PRESSURE O2 37.7 mmHg (30.0-50.0); VENOUS PH 7.319 UNITS (7.330-7.430); VENOUS STANDARD HCO3 22.9 MMOL/L; VENOUS TOTAL CO2 26.5 MMOL/L (24.0-28.0)
[2024-02-23] MEDS: IPRATROPIUM 0.5MG/ALBUTEROL 2.5MG INH SOL UD 3ML (DUONEB) NEB ONE (06:43)
[2024-02-23 06:47] LABS: HEMATOCRIT 25.6 % (36.0-47.0); MEAN CORPUSCULAR HEMOGLOBIN 33.1 pg (27.0-33.0); MEAN CORPUSCULAR HGB CONC 31.3 g/dl (32.0-36.5); MEAN CORPUSCULAR VOLUME 105.8 fl (80.0-96.0); PLATELET COUNT, AUTOMATED 251 10^3/uL (150-450); RED BLOOD COUNT 2.42 10^6/uL (4.00-5.40); WHITE BLOOD COUNT 7.9 10^3/uL (4.0-10.0)
[2024-02-23 07:08] LABS: ALBUMIN 3.1 G/DL (3.2-5.2); BILIRUBIN,DIRECT 0.2 MG/DL (<0.4); BILIRUBIN,TOTAL 0.7 MG/DL (0.3-1.2); CALCIUM LEVEL 8.7 MG/DL (8.3-10.6); CK-MB VALUE MASS 1.3 NG/ML (<3.6); CREATININE FOR GFR 3.66 MG/DL (0.55-1.30); GLOMERULAR FILTRATION RATE 12.7 (>32); MB/CK RELATIVE INDEX 3.09 (< OR =4); POTASSIUM SERUM 3.9 MMOL/L (3.5-5.1); TOTAL PROTEIN 6.3 G/DL (5.7-8.2)
[2024-02-23 07:10] LABS: THYROID STIMULATING HORMONE 0.676 uIU/ML (0.55-4.78); THYROXINE (T4) 11.2 UG/DL (4.5-10.9)
[2024-02-23 07:18] LABS: EOSINOPHILS 4 % (0-3); LYMPHOCYTES 1 % (16-44); MONOCYTES 2 % (0-5); NEUTROPHILS 93 % (28-66)
[2024-02-23 07:20] LABS: ANISOCYTOSIS 4+
[2024-02-23 07:21] LABS: PLATELET CLUMPS SMALL AMT; PLATELET ESTIMATE NORMAL (NORMAL)
[2024-02-23 07:22] LABS: OVALOCYTES 1+; POLYCHROMASIA 1+
[2024-02-23 07:24] LABS: SCHISTOCYTES 1+; TEAR DROP CELLS 2+
[2024-02-23] MEDS ORDERED: SODIUM CHLORIDE 0.9% INJ 10 ML SYR IV PRN (07:30)
[2024-02-23] MEDS: NS 1,000 ML IV ONE (07:30)
[2024-02-23] MEDS: IPRATROPIUM 0.5MG/ALBUTEROL 2.5MG INH SOL UD 3ML (DUONEB) NEB PRN (07:50)
[2024-02-23] MEDS: dexAMETHasone 20MG/5ML VIAL IV ONE (08:25)
[2024-02-23 08:31] VITALS: O2SAT 90
[2024-02-23] MEDS: PANTOPRAZOLE 40MG TAB (PROTONIX) PO SCH (09:00)
[2024-02-23] MEDS: ASPIRIN 81MG ENTERIC TABLET PO SCH (09:00)
[2024-02-23] MEDS: FOLIC ACID 1MG TAB PO SCH (09:00)
[2024-02-23] MEDS: allopurinoL 100 MG TAB PO SCH (09:00)
[2024-02-23] MEDS ORDERED: HEPARIN 1,000UNITS/ML 10ML VIAL (FOR RADIOLOGY & DIALYSIS ONLY) XX SCH (09:40)
[2024-02-23] MEDS ORDERED: SODIUM CHLORIDE 0.9% 1000ML IV PRN (09:40)
[2024-02-23] MEDS ORDERED: HEPARIN 1,000UNITS/ML 10ML VIAL (FOR RADIOLOGY & DIALYSIS ONLY) IV PRN (09:40)
[2024-02-23] MEDS ORDERED: ISOVUE-370 76% 100ML VIAL As Ordered ONE (12:38)
[2024-02-23] MEDS ORDERED: [UNRECOGNIZED DRUG - CODE] IV (15:01)
[2024-02-23] MEDS ORDERED: GABA-1171 PO (15:01)
[2024-02-23] MEDS ORDERED: VENTAER INH (15:01)
[2024-02-23] MEDS ORDERED: POLY17PO18 PO (15:01)
[2024-02-23] MEDS ORDERED: IPRA0.00 INH (15:01)
[2024-02-23] MEDS ORDERED: ACET1TAB55 PO (15:01)
[2024-02-23] MEDS ORDERED: ALLO100T PO (15:01)
[2024-02-23] MEDS ORDERED: DOCU100C16 PO (15:01)
[2024-02-23] MEDS ORDERED: SYMB16INH INH (15:01)
[2024-02-23] MEDS ORDERED: ALBU2.5V10 INH (15:01)
[2024-02-23] MEDS ORDERED: MIRC200I ICATH (15:01)
[2024-02-23] MEDS ORDERED: LEVO75TA4 PO (15:01)
[2024-02-23] MEDS ORDERED: MIDO2.5T PO (15:01)
[2024-02-23] MEDS ORDERED: NITR0.4S14 SL (15:01)
[2024-02-23] MEDS ORDERED: HOME MED LIST COMPLETE! XX SCH (15:05)
[2024-02-23] MEDS ORDERED: ACETAMINOPHEN TAB 650MG DOSE (2X325MG) PO PRN (15:25)
[2024-02-23] MEDS ORDERED: MOM 30ML SUSPENSION UDC PO PRN (15:25)
[2024-02-23] MEDS ORDERED: IPRATROPIUM 0.5MG/ALBUTEROL 2.5MG INH SOL UD 3ML (DUONEB) NEB PRN (15:45)
[2024-02-23] MEDS ORDERED: NITROGLYCERIN 0.4MG SUBL TABLET SL PRN (15:55)
[2024-02-23] MEDS ORDERED: MIRALAX *UNIT DOSE* 17GM PACKET PO PRN (15:55)
[2024-02-23 17:36] VITALS: BP 132/60; TEMP 97.3; O2SAT 96
[2024-02-23] MEDS: LANTHANUM CARBONATE 500MG CHEW TABLET PO SCH (18:00)
[2024-02-23 18:23] LABS: HEMOGLOBIN A1c 5.5 % (4.0-6.0)
[2024-02-23] MEDS: AZITHROMYCIN 250MG TABLET PO SCH (18:25)
[2024-02-23] MEDS: SYMBICORT 160/4.5MCG INHALER 6GM INH SCH (19:34)
[2024-02-23] MEDS: IPRATROPIUM 0.5MG/ALBUTEROL 2.5MG INH SOL UD 3ML (DUONEB) NEB SCH (19:34)
[2024-02-23] MEDS: guaiFENesin ER TABLET 600 MG TAB PO SCH (21:00)
[2024-02-23] MEDS: APIXABAN 2.5 MG TAB (ELIQUIS) PO SCH (21:00)
[2024-02-23] MEDS: ALTEPLASE 2MG/2ML VIAL XX ONE (21:20)
[2024-02-23 21:44] VITALS: BP 113/56; TEMP 97; O2SAT 98
[2024-02-23] MEDS: DOCUSATE SODIUM 100MG CAPSULE PO SCH (21:52)
[2024-02-23] MEDS: ATORVASTATIN 20 MG TAB PO SCH (21:52)
[2024-02-23] MEDS: methylPREDNISolone 40MG 1ML VIAL IV SCH (21:55)
[2024-02-23] MEDS: MIDODRINE 2.5 MG TAB PO SCH (21:55)
[2024-02-23] MEDS: GABAPENTIN 100 MG CAP PO SCH (21:55)
[2024-02-23 23:25] VITALS: BP 112/53; TEMP 96.9; O2SAT 98
[2024-02-24] VITALS (7 sets, daily range): BP systolic 96–130; BP diastolic 42–66; TEMP 96.9–98.3; O2SAT 92–100
[2024-02-24] MEDS ORDERED: SODIUM CHLORIDE 0.9% INJ 10 ML SYR IV PRN (05:30)
[2024-02-24 06:00] LABS: BASO % 0.1 % (0.0-1.0); HEMATOCRIT 24.6 % (36.0-47.0); HEMOGLOBIN 7.6 g/dl (12.0-15.5); LYMPH # 0.1 10^3/uL (1.5-5.0); LYMPH % 1.3 % (24.0-44.0); MEAN CORPUSCULAR HEMOGLOBIN 32.3 pg (27.0-33.0); MEAN CORPUSCULAR HGB CONC 30.9 g/dl (32.0-36.5); MEAN CORPUSCULAR VOLUME 104.7 fl (80.0-96.0); MONO % 0.5 % (2.0-8.0); NEUTROPHILS # 8.5 10^3/uL (1.5-8.5); NEUTROPHILS % 97.8 % (36.0-66.0); PLATELET COUNT, AUTOMATED 224 10^3/uL (150-450); RED BLOOD COUNT 2.35 10^6/uL (4.00-5.40); WHITE BLOOD COUNT 8.7 10^3/uL (4.0-10.0)
[2024-02-24 06:29] LABS: CALCIUM LEVEL 9.3 MG/DL (8.3-10.6); CREATININE FOR GFR 2.26 MG/DL (0.55-1.30); GLOMERULAR FILTRATION RATE 22.2 (>32); POTASSIUM SERUM 4.7 MMOL/L (3.5-5.1)
[2024-02-24] MEDS ORDERED: FONDAPARINUX SODIUM 2.5 MG/0.5 ML SYRINGE SC SCH (09:00)
[2024-02-24] MEDS: methylPREDNISolone 40MG 1ML VIAL IV SCH (22:35)
[2024-02-25] VITALS (9 sets, daily range): BP systolic 103–132; BP diastolic 46–82; TEMP 96.9–98; O2SAT 91–97
[2024-02-25 04:29] LABS: BASO % 0.1 % (0.0-1.0); EOS % 0.1 % (0.0-3.0); HEMATOCRIT 24.7 % (36.0-47.0); HEMOGLOBIN 7.7 g/dl (12.0-15.5); LYMPH # 0.2 10^3/uL (1.5-5.0); LYMPH % 1.5 % (24.0-44.0); MEAN CORPUSCULAR HEMOGLOBIN 32.1 pg (27.0-33.0); MEAN CORPUSCULAR HGB CONC 31.2 g/dl (32.0-36.5); MEAN CORPUSCULAR VOLUME 102.9 fl (80.0-96.0); MONO % 0.3 % (2.0-8.0); NEUTROPHILS # 10.1 10^3/uL (1.5-8.5); NEUTROPHILS % 97.6 % (36.0-66.0); PLATELET COUNT, AUTOMATED 256 10^3/uL (150-450); WHITE BLOOD COUNT 10.4 10^3/uL (4.0-10.0)
[2024-02-25 05:00] LABS: CALCIUM LEVEL 8.1 MG/DL (8.3-10.6); CREATININE FOR GFR 3.43 MG/DL (0.55-1.30); GLOMERULAR FILTRATION RATE 13.7 (>32); POTASSIUM SERUM 4.4 MMOL/L (3.5-5.1)
[2024-02-25] MEDS: predniSONE 10MG TAB PO SCH (09:21)
[2024-02-25] MEDS: MIDODRINE 2.5 MG TAB PO SCH (16:26)
[2024-02-26] MEDS ORDERED: HEPARIN 1,000UNITS/ML 10ML VIAL (FOR RADIOLOGY & DIALYSIS ONLY) XX SCH (00:05)
[2024-02-26] MEDS ORDERED: SODIUM CHLORIDE 0.9% 1000ML IV PRN (00:05)
[2024-02-26] MEDS ORDERED: HEPARIN 1,000UNITS/ML 10ML VIAL (FOR RADIOLOGY & DIALYSIS ONLY) IV PRN (00:05)
[2024-02-26 04:00] VITALS: BP 113/55; TEMP 97.8; O2SAT 94
[2024-02-26 04:32] LABS: BASO % 0.1 % (0.0-1.0); EOS % 0.2 % (0.0-3.0); HEMATOCRIT 26.5 % (36.0-47.0); HEMOGLOBIN 8.4 g/dl (12.0-15.5); LYMPH # 0.5 10^3/uL (1.5-5.0); LYMPH % 5.1 % (24.0-44.0); MEAN CORPUSCULAR HEMOGLOBIN 32.1 pg (27.0-33.0); MEAN CORPUSCULAR HGB CONC 31.7 g/dl (32.0-36.5); MEAN CORPUSCULAR VOLUME 101.1 fl (80.0-96.0); MONO # 0.1 10^3/uL (0.0-0.8); MONO % 0.8 % (2.0-8.0); NEUTROPHILS # 9.1 10^3/uL (1.5-8.5); NEUTROPHILS % 92.7 % (36.0-66.0); PLATELET COUNT, AUTOMATED 251 10^3/uL (150-450); RED BLOOD COUNT 2.62 10^6/uL (4.00-5.40); WHITE BLOOD COUNT 9.8 10^3/uL (4.0-10.0)
[2024-02-26 04:45] LABS: MAGNESIUM LEVEL 1.9 MG/DL (1.8-2.4)
[2024-02-26 07:43] VITALS: BP 128/59; TEMP 97.2; O2SAT 92
[2024-02-26 08:45] LABS: CALCIUM LEVEL 8.2 MG/DL (8.3-10.6); CREATININE FOR GFR 3.81 MG/DL (0.55-1.30); GLOMERULAR FILTRATION RATE 12.1 (>32); POTASSIUM SERUM 4.1 MMOL/L (3.5-5.1)
[2024-02-26] MEDS ORDERED: ALTEPLASE 2MG/2ML VIAL XX ONE (10:00)
[2024-02-26] MEDS ORDERED: ELIQ2.5T PO (14:04)
[2024-02-26] MEDS ORDERED: MUCI600T31 PO (14:04)
[2024-02-26] MEDS ORDERED: PRED10TA2 PO (14:04)
== END 2024-02-26 17:24 | disposition home health service (06) | DRG 190 ==
LOC: M ED 06:12 → EDBD 06:12 → M ED INP 14:06 → M PCU 17:37
PROVIDERS: ADMIT Internal Medicine; ATTEND Internal Medicine Nephrology
PROC: 5A1D70Z Performance of Urinary Filtration, Intermittent, Less than 6 Hours Per Day (ICD-10-PCS; principal; 2024-02-23)
PROC: 30233N1 Transfusion of Nonautologous Red Blood Cells into Peripheral Vein, Percutaneous Approach (ICD-10-PCS; 2024-02-24)
DX: J44.1 Chronic obstructive pulmonary disease with (acute) exacerbation (principal); J96.21 Acute and chronic respiratory failure with hypoxia; N18.6 End stage renal disease; I50.23 Acute on chronic systolic (congestive) heart failure; I24.89 Other forms of acute ischemic heart disease; C34.32 Malignant neoplasm of lower lobe, left bronchus or lung; E87.20 Acidosis, unspecified; E66.9 Obesity, unspecified; I25.10 Atherosclerotic heart disease of native coronary artery without angina pectoris; E03.9 Hypothyroidism, unspecified; E78.5 Hyperlipidemia, unspecified; I48.0 Paroxysmal atrial fibrillation; D63.1 Anemia in chronic kidney disease; G62.0 Drug-induced polyneuropathy; T45.1X5A Adverse effect of antineoplastic and immunosuppressive drugs, initial encounter; I25.5 Ischemic cardiomyopathy; I25.2 Old myocardial infarction; K21.9 Gastro-esophageal reflux disease without esophagitis; D63.0 Anemia in neoplastic disease; I95.89 Other hypotension; M10.9 Gout, unspecified; R53.81 Other malaise; B34.9 Viral infection, unspecified; I27.20 Pulmonary hypertension, unspecified; K59.00 Constipation, unspecified; Z79.890 Hormone replacement therapy; Z79.899 Other long term (current) drug therapy; Z88.8 Allergy status to other drugs, medicaments and biological substances; Z99.2 Dependence on renal dialysis; Z86.718 Personal history of other venous thrombosis and embolism; Z79.69 Long term (current) use of other immunomodulators and immunosuppressants; Z86.711 Personal history of pulmonary embolism; Z92.3 Personal history of irradiation; Z99.3 Dependence on wheelchair; Z68.38 Body mass index [BMI] 38.0-38.9, adult; Z95.810 Presence of automatic (implantable) cardiac defibrillator; Z99.81 Dependence on supplemental oxygen

== ENCOUNTER → 2024-04-01 | Outpatient (CLI) | payer MEDICARE, BC ==
[~2024-04-01] MED LIST changes: +ALBU2.5V10 INH; +DOCU100C16 PO; +ELIQ2.5T PO; +FERR160T4 PO; +IPRA0.00 INH; +MIRC200I ICATH; +MUCI600T31 PO; +NITR0.4S14 SL; +POLY17PO18 PO; -SLOW160T8 PO; +VENTAER INH; +[UNRECOGNIZED DRUG - CODE] IV
== END ==
LOC: M LAB 11:04
PROVIDERS: ATTEND Internal Medicine Nephrology
DX: N18.6 End stage renal disease (principal)

== ENCOUNTER 2024-04-02 07:45 | Outpatient (CLI) | payer MEDICARE, BC ==
[~2024-04-02 07:45] MED LIST changes: +NS 250 ML IV ONE
[2024-04-02 08:00] VITALS: BP 129/60; O2SAT 92
[2024-04-02] MEDS: diphenhydrAMINE 25MG CAP PO ONE (08:03)
[2024-04-02] MEDS: ACETAMINOPHEN TAB 650MG DOSE (2X325MG) PO ONE (08:04)
[2024-04-02 08:35] VITALS: BP 118/56; O2SAT 96
[2024-04-02 09:35] VITALS: BP 120/64; O2SAT 97
[2024-04-02 13:15] VITALS: BP 111/55; O2SAT 96
== END 2024-04-02 13:30 | disposition home or self-care (01) ==
LOC: M INFU 07:45
PROVIDERS: ATTEND Internal Medicine Nephrology
DX: N18.6 End stage renal disease (principal); D64.9 Anemia, unspecified; Z88.8 Allergy status to other drugs, medicaments and biological substances
CPT/HCPCS: 36430; 96523; P9016

== ENCOUNTER 2024-04-15 06:39 | Inpatient (IN) | payer MEDICARE, BC ==
[~2024-04-15] VITALS: Ht 165.1 cm; Wt 107.5 kg
[2024-04-15] VITALS (14 sets, daily range): BP systolic 114; BP diastolic 55–64; TEMP 96.7; O2SAT 88–97
[~2024-04-15 06:39] MED LIST changes: -NS 250 ML IV ONE
[2024-04-15] MEDS: ALBUTEROL SULFATE 2.5MG/0.5ML INH NEB SOLN INH ONE (07:46)
[2024-04-15] MEDS: IPRATROPIUM 0.5MG/ALBUTEROL 2.5MG INH SOL UD 3ML (DUONEB) NEB ONE (07:46)
[2024-04-15 07:54] LABS: VENOUS BASE EXCESS -5.4 (-2.0-2.0); VENOUS HCO3 19.1 MMOL/L (23.0-27.0); VENOUS O2 SATURATION 95.8 % (60.0-80.0); VENOUS PARTIAL PRESSURE CO2 33.6 mmHg (38.0-50.0); VENOUS PARTIAL PRESSURE O2 87.7 mmHg (30.0-50.0); VENOUS PH 7.372 UNITS (7.330-7.430); VENOUS STANDARD HCO3 19.9 MMOL/L; VENOUS TOTAL CO2 20.1 MMOL/L (24.0-28.0)
[2024-04-15 08:03] LABS: BASO % 0.3 % (0.0-1.0); EOS % 0.2 % (0.0-3.0); HEMATOCRIT 29.9 % (36.0-47.0); HEMOGLOBIN 9.4 g/dl (12.0-15.5); LYMPH # 0.4 10^3/uL (1.5-5.0); LYMPH % 2.8 % (24.0-44.0); MEAN CORPUSCULAR HEMOGLOBIN 29.7 pg (27.0-33.0); MEAN CORPUSCULAR HGB CONC 31.4 g/dl (32.0-36.5); MEAN CORPUSCULAR VOLUME 94.3 fl (80.0-96.0); MONO # 0.9 10^3/uL (0.0-0.8); MONO % 6.7 % (2.0-8.0); NEUTROPHILS # 12.3 10^3/uL (1.5-8.5); NEUTROPHILS % 89.3 % (36.0-66.0); PLATELET COUNT, AUTOMATED 200 10^3/uL (150-450); RED BLOOD COUNT 3.17 10^6/uL (4.00-5.40); WHITE BLOOD COUNT 13.8 10^3/uL (4.0-10.0)
[2024-04-15] MEDS: methylPREDNISolone 125MG 2ML VIAL IV ONE (08:09)
[2024-04-15 08:56] LABS: THYROID STIMULATING HORMONE 1.488 uIU/ML (0.55-4.78); THYROXINE (T4) 10.8 UG/DL (4.5-10.9)
[2024-04-15 08:58] LABS: ALBUMIN 2.7 G/DL (3.2-5.2); BILIRUBIN,DIRECT 0.3 MG/DL (<0.4); BILIRUBIN,TOTAL 0.6 MG/DL (0.3-1.2); CALCIUM LEVEL 8.5 MG/DL (8.3-10.6); CK-MB VALUE MASS 2.3 NG/ML (<3.6); CREATININE FOR GFR 7.28 MG/DL (0.55-1.30); GLOMERULAR FILTRATION RATE 5.7 (>32); MB/CK RELATIVE INDEX 1.31 (< OR =4); POTASSIUM SERUM 5.1 MMOL/L (3.5-5.1); TOTAL PROTEIN 5.9 G/DL (5.7-8.2)
[2024-04-15] MEDS ORDERED: ISOVUE-370 76% 100ML VIAL As Ordered ONE (09:28)
[2024-04-15 10:07] LABS: CK-MB VALUE MASS 2.4 NG/ML (<3.6)
[2024-04-15 10:16] LABS: MB/CK RELATIVE INDEX 1.54 (< OR =4)
[2024-04-15] MEDS ORDERED: ACET-683 PO (10:29)
[2024-04-15] MEDS ORDERED: ELIQ2.5T PO (10:29)
[2024-04-15] MEDS ORDERED: ADVA230A INH (10:29)
[2024-04-15] MEDS ORDERED: HOME MED LIST COMPLETE! XX SCH (10:30)
[2024-04-15] MEDS ORDERED: SODIUM CHLORIDE 0.9% 1000ML IV PRN (11:20)
[2024-04-15] MEDS ORDERED: MOM 30ML SUSPENSION UDC PO PRN (11:45)
[2024-04-15] MEDS ORDERED: ACETAMINOPHEN TAB 650MG DOSE (2X325MG) PO PRN (11:45)
[2024-04-15] MEDS ORDERED: PIPERACILLIN/TAZOBACTAM SOD 3.375 GM in D5W MINI-BAG PLUS 50 ML IV ONE (11:45)
[2024-04-15] MEDS ORDERED: NITROGLYCERIN 0.4MG SUBL TABLET SL PRN (12:50)
[2024-04-15] MEDS ORDERED: PIPERACILLIN/TAZOBACTAM SOD 4.5 GM in D5W MINI-BAG PLUS 50 ML IV ONE ×2 (13:25→14:00)
[2024-04-15] MEDS: PIPERACILLIN/TAZOBACTAM SOD 4.5 GM in D5W MINI-BAG PLUS 50 ML IV SCH (14:41)
[2024-04-15 15:57] LABS: C REACTIVE PROTEIN QUANTITATIV 29.2 MG/DL (<1.0)
[2024-04-15 16:10] LABS: PROCALCITONIN 13.54 ng/ml
[2024-04-15] MEDS: DARBEPOETIN 200MCG/0.4ML *DIALYSIS* SYRINGE IV SCH (18:10)
[2024-04-15] MEDS: MIDODRINE 2.5 MG TAB PO SCH (18:19)
[2024-04-15] MEDS: ADVAIR HFA 230/21MCG INHALER INH SCH (19:18)
[2024-04-15] MEDS: ALTEPLASE 2MG/2ML VIAL IV PRN (20:18)
[2024-04-15] MEDS: APIXABAN 2.5 MG TAB (ELIQUIS) PO SCH (21:43)
[2024-04-15] MEDS: GABAPENTIN 100 MG CAP PO SCH (21:43)
[2024-04-15] MEDS: ATORVASTATIN 20 MG TAB PO SCH (21:44)
[2024-04-16] VITALS (39 sets, daily range): BP systolic 96–120; BP diastolic 53–61; TEMP 97–97.3; O2SAT 88–97
[2024-04-16] MEDS: NYSTATIN 100,000 UNITS/GM TOPICAL PWD 15GM TOP SCH (03:55)
[2024-04-16 05:37] LABS: BASO % 0.2 % (0.0-1.0); HEMOGLOBIN 8.8 g/dl (12.0-15.5); LYMPH # 0.3 10^3/uL (1.5-5.0); MEAN CORPUSCULAR HEMOGLOBIN 29.1 pg (27.0-33.0); MEAN CORPUSCULAR HGB CONC 31.4 g/dl (32.0-36.5); MEAN CORPUSCULAR VOLUME 92.7 fl (80.0-96.0); MONO # 0.3 10^3/uL (0.0-0.8); MONO % 5.1 % (2.0-8.0); NEUTROPHILS # 5.7 10^3/uL (1.5-8.5); NEUTROPHILS % 88.5 % (36.0-66.0); PLATELET COUNT, AUTOMATED 169 10^3/uL (150-450); RED BLOOD COUNT 3.02 10^6/uL (4.00-5.40); WHITE BLOOD COUNT 6.5 10^3/uL (4.0-10.0)
[2024-04-16] MEDS: LEVOTHYROXINE 75MCG TABLET (0.075MG) PO SCH (06:01)
[2024-04-16 06:02] LABS: C REACTIVE PROTEIN QUANTITATIV 25.1 MG/DL (<1.0)
[2024-04-16 06:05] LABS: ALBUMIN 2.8 G/DL (3.2-5.2); BILIRUBIN,TOTAL 0.7 MG/DL (0.3-1.2); CALCIUM LEVEL 8.7 MG/DL (8.3-10.6); CREATININE FOR GFR 4.32 MG/DL (0.55-1.30); GLOMERULAR FILTRATION RATE 10.5 (>32); MAGNESIUM LEVEL 1.8 MG/DL (1.8-2.4); POTASSIUM SERUM 3.7 MMOL/L (3.5-5.1); TOTAL PROTEIN 6.1 G/DL (5.7-8.2)
[2024-04-16] MEDS: allopurinoL 100 MG TAB PO SCH (08:47)
[2024-04-16] MEDS: FOLIC ACID 1MG TAB PO SCH (08:47)
[2024-04-16] MEDS: GABAPENTIN 100 MG CAP PO SCH (08:47)
[2024-04-16] MEDS ORDERED: VANCOMYCIN HCL 750 MG, VIAL MATE ADAPTER 1 EACH in D5W 250 ML IV SCH (10:55)
[2024-04-16] MEDS: LANTHANUM CARBONATE 500MG CHEW TABLET PO SCH (11:45)
[2024-04-16] MEDS: VANCOMYCIN HCL 1,000 MG, VIAL MATE ADAPTER 1 EACH in D5W 250 ML IV SCH (11:46)
[2024-04-16] MEDS: METOPROLOL TART 12.5 MG PER 1/2 TAB PO SCH (17:43)
[2024-04-16] MEDS: DIGOXIN INJ 0.5 MG/2 ML AMP IV ONE (18:38)
[2024-04-17] VITALS (41 sets, daily range): BP systolic 92–127; BP diastolic 49–56; TEMP 96.8–97.8; O2SAT 87–99
[2024-04-17] MEDS ORDERED: SODIUM CHLORIDE 0.9% 1000ML IV PRN (06:00)
[2024-04-17 07:10] LABS: HEMOGLOBIN 9.1 g/dl (12.0-15.5); MEAN CORPUSCULAR HEMOGLOBIN 28.5 pg (27.0-33.0); MEAN CORPUSCULAR HGB CONC 30.3 g/dl (32.0-36.5); PLATELET COUNT, AUTOMATED 235 10^3/uL (150-450); RED BLOOD COUNT 3.19 10^6/uL (4.00-5.40); WHITE BLOOD COUNT 9.7 10^3/uL (4.0-10.0)
[2024-04-17 07:13] LABS: C REACTIVE PROTEIN QUANTITATIV 14.5 MG/DL (<1.0)
[2024-04-17 07:15] LABS: ALBUMIN 2.8 G/DL (3.2-5.2); BILIRUBIN,TOTAL 0.5 MG/DL (0.3-1.2); CALCIUM LEVEL 8.7 MG/DL (8.3-10.6); CREATININE FOR GFR 5.65 MG/DL (0.55-1.30); GLOMERULAR FILTRATION RATE 7.7 (>32); MAGNESIUM LEVEL 1.9 MG/DL (1.8-2.4); POTASSIUM SERUM 3.7 MMOL/L (3.5-5.1); TOTAL PROTEIN 6.2 G/DL (5.7-8.2)
[2024-04-17 08:53] LABS: ATYPICAL LYMPH 11 % (0-5); EOSINOPHILS 1 % (0-3); LYMPHOCYTES 8 % (16-44); MONOCYTES 2 % (0-5); NEUTROPHILS 77 % (28-66)
[2024-04-17 08:54] LABS: HYPOCHROMASIA 1+
[2024-04-17 08:55] LABS: ANISOCYTOSIS 4+
[2024-04-17 08:56] LABS: PLATELET ESTIMATE NORMAL (NORMAL)
[2024-04-17] MEDS: ALTEPLASE 2MG/2ML VIAL IV PRN (11:43)
[2024-04-17] MEDS ORDERED: LIDOCAINE W/EPINEPHRINE 1% 20ML VIAL As Ordered ONE (13:46)
[2024-04-17] MEDS ORDERED: LIDOCAINE 1% MDV 20ML VIAL As Ordered ONE (13:47)
[2024-04-17 15:47] LABS: INR 1.28; PROTHROMBIN TIME 15.6 SECONDS (12.5-14.5)
[2024-04-17] MEDS: VANCOMYCIN HCL 1,000 MG, VIAL MATE ADAPTER 1 EACH in D5W 250 ML IV SCH (16:06)
[2024-04-18] VITALS (17 sets, daily range): BP systolic 105–142; BP diastolic 55–74; TEMP 96.6–97.6; O2SAT 87–99
[2024-04-18 08:00] LABS: BASO % 0.1 % (0.0-1.0); EOS # 0.1 10^3/uL (0.0-0.5); HEMATOCRIT 34.8 % (36.0-47.0); HEMOGLOBIN 10.7 g/dl (12.0-15.5); LYMPH # 1.2 10^3/uL (1.5-5.0); LYMPH % 12.7 % (24.0-44.0); MEAN CORPUSCULAR HEMOGLOBIN 29.2 pg (27.0-33.0); MEAN CORPUSCULAR HGB CONC 30.7 g/dl (32.0-36.5); MEAN CORPUSCULAR VOLUME 95.1 fl (80.0-96.0); MONO # 1.4 10^3/uL (0.0-0.8); MONO % 14.5 % (2.0-8.0); NEUTROPHILS # 6.4 10^3/uL (1.5-8.5); NEUTROPHILS % 65.9 % (36.0-66.0); PLATELET COUNT, AUTOMATED 252 10^3/uL (150-450); RED BLOOD COUNT 3.66 10^6/uL (4.00-5.40); WHITE BLOOD COUNT 9.7 10^3/uL (4.0-10.0)
[2024-04-18 08:21] LABS: C REACTIVE PROTEIN QUANTITATIV 9.9 MG/DL (<1.0)
[2024-04-18 08:22] LABS: VANCOMYCIN RANDOM 21.8 UG/ML
[2024-04-18 08:23] LABS: ALBUMIN 2.7 G/DL (3.2-5.2); BILIRUBIN,TOTAL 0.5 MG/DL (0.3-1.2); CALCIUM LEVEL 8.7 MG/DL (8.3-10.6); CREATININE FOR GFR 4.01 MG/DL (0.55-1.30); GLOMERULAR FILTRATION RATE 11.4 (>32); MAGNESIUM LEVEL 1.8 MG/DL (1.8-2.4); POTASSIUM SERUM 3.5 MMOL/L (3.5-5.1); TOTAL PROTEIN 6.3 G/DL (5.7-8.2)
[2024-04-18] MEDS ORDERED: MIDAZOLAM INJ 2MG/2ML VIAL As Ordered ONE (15:02)
[2024-04-18] MEDS ORDERED: fentaNYL 100 MCG/2 ML INJECTION As Ordered ONE (15:02)
[2024-04-18] MEDS ORDERED: ALTEPLASE 2MG/2ML VIAL As Ordered ONE (15:03)
[2024-04-18] MEDS ORDERED: GABA-1171 PO (16:11)
[2024-04-18] MEDS ORDERED: ceFAZolin 2 GM/D5W 50 ML IV BAG As Ordered ONE (16:11)
== END 2024-04-18 18:32 | disposition home or self-care (01) | DRG 314 ==
LOC: M ED 06:39 → M PCU 12:22 → OBSVTOIN 12:22 → M ED INP 12:22 → M PCU 17:10
PROVIDERS: ADMIT Internal Medicine; ATTEND Internal Medicine
PROC: 5A1D70Z Performance of Urinary Filtration, Intermittent, Less than 6 Hours Per Day (ICD-10-PCS; principal; 2024-04-15)
PROC: B246ZZZ Ultrasonography of Right and Left Heart (ICD-10-PCS; 2024-04-16)
PROC: 0WP Anatomical Regions, General, Removal (ICD-10-PCS; 2024-04-17)
PROC: 0JH63XZ Insertion of Tunneled Vascular Access Device into Chest Subcutaneous Tissue and Fascia, Percutaneous Approach (ICD-10-PCS; 2024-04-18)
PROC: 02H633Z Insertion of Infusion Device into Right Atrium, Percutaneous Approach (ICD-10-PCS; 2024-04-18)
DX: T82.7XXA Infection and inflammatory reaction due to other cardiac and vascular devices, implants and grafts, initial encounter (principal); N18.6 End stage renal disease; I50.23 Acute on chronic systolic (congestive) heart failure; C34.32 Malignant neoplasm of lower lobe, left bronchus or lung; I24.89 Other forms of acute ischemic heart disease; R78.81 Bacteremia; Z68.39 Body mass index [BMI] 39.0-39.9, adult; E87.70 Fluid overload, unspecified; I25.5 Ischemic cardiomyopathy; I25.10 Atherosclerotic heart disease of native coronary artery without angina pectoris; I48.0 Paroxysmal atrial fibrillation; J44.9 Chronic obstructive pulmonary disease, unspecified; E78.5 Hyperlipidemia, unspecified; E03.9 Hypothyroidism, unspecified; E66.9 Obesity, unspecified; I95.89 Other hypotension; K21.9 Gastro-esophageal reflux disease without esophagitis; G62.0 Drug-induced polyneuropathy; D63.1 Anemia in chronic kidney disease; M10.9 Gout, unspecified; T45.1X5A Adverse effect of antineoplastic and immunosuppressive drugs, initial encounter; Z95.5 Presence of coronary angioplasty implant and graft; Z95.810 Presence of automatic (implantable) cardiac defibrillator; Z99.2 Dependence on renal dialysis; Z79.01 Long term (current) use of anticoagulants; Z86.711 Personal history of pulmonary embolism; Z79.890 Hormone replacement therapy; Z79.899 Other long term (current) drug therapy; Z86.718 Personal history of other venous thrombosis and embolism; Z87.891 Personal history of nicotine dependence; Z79.69 Long term (current) use of other immunomodulators and immunosuppressants; Z92.3 Personal history of irradiation; Z88.8 Allergy status to other drugs, medicaments and biological substances; Y83.1 Surgical operation with implant of artificial internal device as the cause of abnormal reaction of the patient, or of later complication, without mention of misadventure at the time of the procedure; Z99.81 Dependence on supplemental oxygen

== ENCOUNTER → 2024-05-13 | Outpatient (CLI) | payer MEDICARE, BC ==
[~2024-05-13] MED LIST changes: +ACET-683 PO; +ADVA230A INH
== END ==
LOC: M RAD 10:42
PROVIDERS: ATTEND Internal Medicine Medical Oncology
DX: C34.90 Malignant neoplasm of unspecified part of unspecified bronchus or lung (principal)

== ENCOUNTER → 2024-06-26 | Outpatient (CLI) | payer MEDICARE, BC ==
[~2024-06-26] MED LIST changes: +HYDR-3363; +LEVO1TAB38 PO
== END ==
LOC: M PLAIMG 10:52
PROVIDERS: ATTEND Internal Medicine Cardiovascular Disease
DX: T82.190A Other mechanical complication of cardiac electrode, initial encounter (principal); Y83.1 Surgical operation with implant of artificial internal device as the cause of abnormal reaction of the patient, or of later complication, without mention of misadventure at the time of the procedure

== ENCOUNTER 2024-07-07 11:54 | Day surgery (SDC) | payer MEDICARE, BC ==
[~2024-07-07] VITALS: Ht 165.1 cm; Wt 102.3 kg
[~2024-07-07 11:54] MED LIST changes: +LR 1,000 ML IV SCH
[2024-07-07] MEDS ORDERED: MIDAZOLAM INJ 2MG/2ML VIAL As Ordered ONE (12:30)
[2024-07-07] MEDS ORDERED: fentaNYL 100 MCG/2 ML INJECTION As Ordered ONE (12:31)
[2024-07-07] MEDS: FLURBIPROFEN 0.03% OPHTH SOLN 2.5 ML OD SCH (12:44)
[2024-07-07] MEDS: ATROPINE SULFATE 1% OPHTH SOLN 2ML BTL OD SCH (12:44)
[2024-07-07] MEDS: PHENYLEPHRINE 2.5% OPHTH SOL 2ML OD SCH (12:44)
[2024-07-07] MEDS: TETRACAINE 0.5% OPHTH SOLN 4ML OD SCH (12:44)
[2024-07-07] MEDS: CEFUROXIME 1MG/0.1ML INTRACAMERAL INJ As Ordered ONE (13:40)
[2024-07-07] MEDS: LIDOCAINE 1% SDV 5ML VIAL As Ordered ONE (13:40)
[2024-07-07 13:57] VITALS: BP 123/60; TEMP 96.8; O2SAT 95
== END 2024-07-07 14:20 | disposition home or self-care (01) ==
LOC: M SDC 11:54
PROVIDERS: ATTEND Ophthalmology
DX: H25.11 Age-related nuclear cataract, right eye (principal); I48.91 Unspecified atrial fibrillation; I25.2 Old myocardial infarction; Z95.5 Presence of coronary angioplasty implant and graft; E11.9 Type 2 diabetes mellitus without complications; Z95.810 Presence of automatic (implantable) cardiac defibrillator; E78.00 Pure hypercholesterolemia, unspecified; Z86.718 Personal history of other venous thrombosis and embolism; Z85.118 Personal history of other malignant neoplasm of bronchus and lung; E03.9 Hypothyroidism, unspecified; K21.9 Gastro-esophageal reflux disease without esophagitis; D63.1 Anemia in chronic kidney disease; J44.9 Chronic obstructive pulmonary disease, unspecified; Z99.81 Dependence on supplemental oxygen; Z99.2 Dependence on renal dialysis; N39.3 Stress incontinence (female) (male); N18.5 Chronic kidney disease, stage 5; Z87.891 Personal history of nicotine dependence; Z88.8 Allergy status to other drugs, medicaments and biological substances; Z79.899 Other long term (current) drug therapy; Z79.51 Long term (current) use of inhaled steroids; Z79.01 Long term (current) use of anticoagulants
CPT/HCPCS: 36415; 66984; 84132; J0697; J2250; J3010; V2632

== ENCOUNTER 2024-07-14 07:57 | Day surgery (SDC) | payer MEDICARE, BC ==
[~2024-07-14] VITALS: Ht 154.9 cm; Wt 102.6 kg
[~2024-07-14 07:57] MED LIST changes: +MIDAZOLAM INJ 2MG/2ML VIAL As Ordered ONE
[2024-07-14] MEDS: ATROPINE SULFATE 1% OPHTH SOLN 2ML BTL OS SCH (08:34)
[2024-07-14] MEDS: TETRACAINE 0.5% OPHTH SOLN 4ML OS SCH (08:34)
[2024-07-14] MEDS: PHENYLEPHRINE 2.5% OPHTH SOL 2ML OS SCH (08:34)
[2024-07-14] MEDS: FLURBIPROFEN 0.03% OPHTH SOLN 2.5 ML OS SCH (08:34)
[2024-07-14] MEDS: CEFUROXIME 1MG/0.1ML INTRACAMERAL INJ As Ordered ONE (09:26)
[2024-07-14] MEDS: LIDOCAINE 1% SDV 5ML VIAL As Ordered ONE (09:26)
[2024-07-14 09:40] VITALS: BP 149/66; TEMP 96.9; O2SAT 96
== END 2024-07-14 10:00 | disposition home or self-care (01) ==
LOC: M SDC 07:57
PROVIDERS: ATTEND Ophthalmology
DX: E11.36 Type 2 diabetes mellitus with diabetic cataract (principal); H25.12 Age-related nuclear cataract, left eye; E11.22 Type 2 diabetes mellitus with diabetic chronic kidney disease; I12.0 Hypertensive chronic kidney disease with stage 5 chronic kidney disease or end stage renal disease; I48.91 Unspecified atrial fibrillation; N18.6 End stage renal disease; I25.2 Old myocardial infarction; J44.9 Chronic obstructive pulmonary disease, unspecified; E03.9 Hypothyroidism, unspecified; E78.00 Pure hypercholesterolemia, unspecified; Z95.810 Presence of automatic (implantable) cardiac defibrillator; Z79.899 Other long term (current) drug therapy; Z79.01 Long term (current) use of anticoagulants; Z86.718 Personal history of other venous thrombosis and embolism; Z85.118 Personal history of other malignant neoplasm of bronchus and lung; Z79.890 Hormone replacement therapy; Z92.21 Personal history of antineoplastic chemotherapy; K21.9 Gastro-esophageal reflux disease without esophagitis; Z99.3 Dependence on wheelchair; Z99.2 Dependence on renal dialysis; Z92.3 Personal history of irradiation; Z86.711 Personal history of pulmonary embolism; Z88.8 Allergy status to other drugs, medicaments and biological substances; Z87.891 Personal history of nicotine dependence
CPT/HCPCS: 36415; 66984; 84132; J0697; J2250; V2632

== ENCOUNTER → 2024-08-14 | Outpatient (CLI) | payer MEDICARE, BC ==
[~2024-08-14] MED LIST changes: -LR 1,000 ML IV SCH; -MIDAZOLAM INJ 2MG/2ML VIAL As Ordered ONE
== END ==
LOC: M RAD 13:08
PROVIDERS: ATTEND Internal Medicine Medical Oncology
DX: C34.90 Malignant neoplasm of unspecified part of unspecified bronchus or lung (principal)

== ENCOUNTER 2024-10-30 15:36 | Inpatient (IN) | payer MEDICARE, BC, OTHER ==
[~2024-10-30] VITALS: Ht 172.7 cm; Wt 89.6 kg
[~2024-10-30 15:36] MED LIST changes: +AZIT-12 PO; -MIDO2.5T PO; +MIDO2.5T3 PO
[2024-10-30] MEDS ORDERED: SEVE800T3 PO (16:05)
[2024-10-30] MEDS ORDERED: LEVO1TAB39 (16:05)
[2024-10-30 16:57] LABS: VENOUS BASE EXCESS -1.7 (-2.0-2.0); VENOUS HCO3 25.2 MMOL/L (23.0-27.0); VENOUS O2 SATURATION 64.7 % (60.0-80.0); VENOUS PARTIAL PRESSURE O2 34.9 mmHg (30.0-50.0); VENOUS PH 7.304 UNITS (7.330-7.430); VENOUS STANDARD HCO3 22.3 MMOL/L; VENOUS TOTAL CO2 26.8 MMOL/L (24.0-28.0)
[2024-10-30] MEDS: methylPREDNISolone 125MG 2ML VIAL IV ONE (16:59)
[2024-10-30 17:00] LABS: BASO % 0.3 % (0.0-1.0); EOS # 0.2 10^3/uL (0.0-0.5); EOS % 3.3 % (0.0-3.0); HEMATOCRIT 40.2 % (36.0-47.0); HEMOGLOBIN 12.5 g/dl (12.0-15.5); LYMPH # 0.6 10^3/uL (1.5-5.0); LYMPH % 7.5 % (24.0-44.0); MEAN CORPUSCULAR HEMOGLOBIN 28.7 pg (27.0-33.0); MEAN CORPUSCULAR HGB CONC 31.1 g/dl (32.0-36.5); MEAN CORPUSCULAR VOLUME 92.2 fl (80.0-96.0); MONO # 0.6 10^3/uL (0.0-0.8); MONO % 7.5 % (2.0-8.0); NEUTROPHILS # 5.9 10^3/uL (1.5-8.5); NEUTROPHILS % 80.4 % (36.0-66.0); PLATELET COUNT, AUTOMATED 150 10^3/uL (150-450); RED BLOOD COUNT 4.36 10^6/uL (4.00-5.40); WHITE BLOOD COUNT 7.3 10^3/uL (4.0-10.0)
[2024-10-30] MEDS: IPRATROPIUM 0.5MG/ALBUTEROL 2.5MG INH SOL UD 3ML (DUONEB) NEB PRN (17:07)
[2024-10-30 17:31] LABS: ALBUMIN 3.5 G/DL (3.2-5.2); BILIRUBIN,DIRECT 0.3 MG/DL (<0.4); CALCIUM LEVEL 9.3 MG/DL (8.3-10.6); CK-MB VALUE MASS 5.3 NG/ML (<3.6); CREATININE FOR GFR 2.22 MG/DL (0.55-1.30); GLOMERULAR FILTRATION RATE 22.6 (>32); MB/CK RELATIVE INDEX 8.28 (< OR =4); POTASSIUM SERUM 4.1 MMOL/L (3.5-5.1); TOTAL PROTEIN 6.8 G/DL (5.7-8.2)
[2024-10-30 17:33] LABS: THYROID STIMULATING HORMONE 1.89 uIU/ML (0.55-4.78)
[2024-10-30 18:39] LABS: CK-MB VALUE MASS 4.8 NG/ML (<3.6)
[2024-10-30 18:41] LABS: MB/CK RELATIVE INDEX 7.16 (< OR =4)
[2024-10-30] MEDS: FUROSEMIDE 40MG/4ML VIAL IV ONE (19:33)
[2024-10-30] MEDS ORDERED: MIDO2.5T3 PO (19:41)
[2024-10-30] MEDS ORDERED: ALBU2.5V10 INH (19:46)
[2024-10-30] MEDS ORDERED: HOME MED LIST COMPLETE! XX SCH (19:50)
[2024-10-30] MEDS: ADVAIR HFA 230/21MCG INHALER INH SCH (20:00)
[2024-10-30] MEDS ORDERED: ALBUTEROL SULFATE 2.5MG/0.5ML INH NEB SOLN INH PRN (21:20)
[2024-10-30] MEDS ORDERED: NITROGLYCERIN 0.4MG SUBL TABLET SL PRN (21:20)
[2024-10-30] MEDS ORDERED: MAALOX 30 ML SUSP *UDC PO PRN (21:20)
[2024-10-30] MEDS ORDERED: MOM 30ML SUSPENSION UDC PO PRN (21:20)
[2024-10-30] MEDS ORDERED: ACETAMINOPHEN 325 MG TAB PO PRN (21:20)
[2024-10-30 23:00] VITALS: BP 132/62; TEMP 98; O2SAT 94
[2024-10-30] MEDS: ATORVASTATIN 20 MG TAB PO SCH (23:08)
[2024-10-30] MEDS: APIXABAN 2.5 MG TAB (ELIQUIS) PO SCH (23:08)
[2024-10-31] VITALS (16 sets, daily range): BP systolic 118–134; BP diastolic 57–81; TEMP 96.6–98.2; O2SAT 92–98
[2024-10-31] MEDS: PANTOPRAZOLE 40MG VIAL IV SCH (02:51)
[2024-10-31] MEDS: LEVOTHYROXINE 75MCG TABLET (0.075MG) PO SCH (05:46)
[2024-10-31] MEDS: FUROSEMIDE 100MG/10ML VIAL IV SCH (05:46)
[2024-10-31 07:43] LABS: HEMATOCRIT 39.8 % (36.0-47.0); HEMOGLOBIN 12.1 g/dl (12.0-15.5); MEAN CORPUSCULAR HEMOGLOBIN 28.4 pg (27.0-33.0); MEAN CORPUSCULAR HGB CONC 30.4 g/dl (32.0-36.5); MEAN CORPUSCULAR VOLUME 93.4 fl (80.0-96.0); PLATELET COUNT, AUTOMATED 133 10^3/uL (150-450); RED BLOOD COUNT 4.26 10^6/uL (4.00-5.40); WHITE BLOOD COUNT 5.5 10^3/uL (4.0-10.0)
[2024-10-31 07:59] LABS: PHOSPHORUS LEVEL 4.1 MG/DL (2.4-5.1)
[2024-10-31 08:01] LABS: THYROID STIMULATING HORMONE 0.764 uIU/ML (0.55-4.78)
[2024-10-31 08:03] LABS: ALBUMIN 3.4 G/DL (3.2-5.2); BILIRUBIN,TOTAL 0.8 MG/DL (0.3-1.2); CALCIUM LEVEL 9.1 MG/DL (8.3-10.6); CHOLESTEROL RISK RATIO 2.69 (<5); CREATININE FOR GFR 2.79 MG/DL (0.55-1.30); GLOMERULAR FILTRATION RATE 17.3 (>32); HDL CHOLESTEROL 59.7 MG/DL (>40); LDL CHOLESTEROL 88.9 MG/DL (<100); MAGNESIUM LEVEL 1.8 MG/DL (1.8-2.4); NON-HDL-C 101.3 MG/DL; POTASSIUM SERUM 4.8 MMOL/L (3.5-5.1); TOTAL PROTEIN 6.5 G/DL (5.7-8.2)
[2024-10-31] MEDS: MIDODRINE 2.5 MG TAB PO SCH (08:21)
[2024-10-31] MEDS: ASPIRIN 81MG CHEW TABLET PO SCH (08:21)
[2024-10-31] MEDS: FOLIC ACID 1MG TAB PO SCH (08:22)
[2024-10-31] MEDS: allopurinoL 100 MG TAB PO SCH (08:22)
[2024-10-31] MEDS: (RENVELA) SEVELAMER **CARBONate** 800 MG TAB PO SCH (08:22)
[2024-10-31] MEDS: DOCUSATE SODIUM 100MG CAPSULE PO SCH (08:22)
[2024-10-31] MEDS ORDERED: LIDOCAINE 1% SDV 5ML VIAL SC PRN (08:35)
[2024-10-31] MEDS ORDERED: SODIUM CHLORIDE 0.9% 1000 ML IV PRN (08:35)
[2024-10-31] MEDS ORDERED: HEPARIN 1,000UNITS/ML 10ML VIAL (FOR RADIOLOGY & DIALYSIS ONLY) IV PRN (08:35)
[2024-10-31] MEDS ORDERED: HEPARIN 1,000UNITS/ML 10ML VIAL (FOR RADIOLOGY & DIALYSIS ONLY) XX SCH (08:35)
[2024-10-31 09:52] LABS: HEPATITIS B SURFACE ANTIBODY NEGATIVE (POSITIVE)
[2024-10-31 10:05] LABS: HEPATITIS B SURFACE ANTIGEN NEGATIVE (NEGATIVE)
[2024-10-31] MEDS: ALTEPLASE 2MG/2ML VIAL IV PRN (10:08)
[2024-10-31 10:26] LABS: HEPATITIS B CORE ANTIBODY IGM NEGATIVE (NEGATIVE); HEPATITIS C VIRUS ABY INDEX < 0.02 INDEX (<0.8)
[2024-11-01] VITALS (12 sets, daily range): BP systolic 109–140; BP diastolic 55–63; TEMP 96.5–97.8; O2SAT 92–97
[2024-11-01] MEDS ORDERED: HEPARIN 1,000UNITS/ML 10ML VIAL (FOR RADIOLOGY & DIALYSIS ONLY) IV PRN (06:00)
[2024-11-01] MEDS ORDERED: HEPARIN 1,000UNITS/ML 10ML VIAL (FOR RADIOLOGY & DIALYSIS ONLY) XX SCH (06:00)
[2024-11-01] MEDS ORDERED: SODIUM CHLORIDE 0.9% 1000 ML IV PRN (06:00)
[2024-11-01] MEDS: MIDODRINE 5 MG TAB PO SCH (06:05)
[2024-11-01] MEDS: PANTOPRAZOLE 40MG VIAL IV SCH (09:00)
[2024-11-01 12:33] LABS: HEMOGLOBIN A1c 4.9 % (4.0-6.0)
[2024-11-02 03:45] VITALS: BP 111/56; TEMP 97.6; O2SAT 94
[2024-11-02 08:00] VITALS: BP 112/56; TEMP 98.5; O2SAT 96
== END 2024-11-02 11:24 | disposition home health service (06) | DRG 280 ==
LOC: EDBD 15:36 → M ED 15:36 → M ED INP 21:18 → M PCU 22:52
PROVIDERS: ADMIT Student in an Organized Health Care Education/Training Program; ATTEND General Practice
PROC: 5A1D70Z Performance of Urinary Filtration, Intermittent, Less than 6 Hours Per Day (ICD-10-PCS; principal; 2024-10-31)
PROC: B246ZZZ Ultrasonography of Right and Left Heart (ICD-10-PCS; 2024-10-31)
DX: I50.43 Acute on chronic combined systolic (congestive) and diastolic (congestive) heart failure (principal); I21.A1 Myocardial infarction type 2; N18.6 End stage renal disease; J96.11 Chronic respiratory failure with hypoxia; C34.92 Malignant neoplasm of unspecified part of left bronchus or lung; E78.5 Hyperlipidemia, unspecified; I25.10 Atherosclerotic heart disease of native coronary artery without angina pectoris; I48.91 Unspecified atrial fibrillation; M10.9 Gout, unspecified; J44.9 Chronic obstructive pulmonary disease, unspecified; D64.9 Anemia, unspecified; G62.0 Drug-induced polyneuropathy; I35.0 Nonrheumatic aortic (valve) stenosis; E66.9 Obesity, unspecified; R53.81 Other malaise; I95.9 Hypotension, unspecified; E89.0 Postprocedural hypothyroidism; R26.89 Other abnormalities of gait and mobility; R26.9 Unspecified abnormalities of gait and mobility; Z79.890 Hormone replacement therapy; Z79.899 Other long term (current) drug therapy; Z88.8 Allergy status to other drugs, medicaments and biological substances; Z91.158 Patient's noncompliance with renal dialysis for other reason; I27.22 Pulmonary hypertension due to left heart disease; Z99.3 Dependence on wheelchair; Z95.810 Presence of automatic (implantable) cardiac defibrillator; Z68.30 Body mass index [BMI] 30.0-30.9, adult; Z99.2 Dependence on renal dialysis; Z87.891 Personal history of nicotine dependence; Z86.711 Personal history of pulmonary embolism; Z86.718 Personal history of other venous thrombosis and embolism; Z99.81 Dependence on supplemental oxygen; Z79.01 Long term (current) use of anticoagulants; Z90.49 Acquired absence of other specified parts of digestive tract; Z95.5 Presence of coronary angioplasty implant and graft

== ENCOUNTER → 2024-12-03 | Outpatient (CLI) | payer MEDICARE, BC ==
[~2024-12-03] MED LIST changes: +LEVO1TAB39; +SEVE800T3 PO
== END ==
LOC: M RAD 11:05
PROVIDERS: ATTEND Internal Medicine Medical Oncology
DX: C78.02 Secondary malignant neoplasm of left lung (principal); K57.30 Diverticulosis of large intestine without perforation or abscess without bleeding; K80.20 Calculus of gallbladder without cholecystitis without obstruction

== ENCOUNTER → 2024-12-17 | Outpatient (REF) | payer MEDICARE, BC, OTHER ==
[2024-12-17 10:13] LABS: HEMOGLOBIN A1c 5.2 % (4.0-6.0)
[2024-12-17 10:23] LABS: CHOLESTEROL RISK RATIO 2.82 (<5); HDL CHOLESTEROL 52.1 MG/DL (>40); LDL CHOLESTEROL 69.9 MG/DL (<100); NON-HDL-C 94.9 MG/DL
== END ==
LOC: M LAB REF 09:42
PROVIDERS: ATTEND Family Medicine
DX: E11.9 Type 2 diabetes mellitus without complications (principal)

== ENCOUNTER 2025-01-27 06:13 | Observation (INO) | payer MEDICARE, BC ==
[~2025-01-27] VITALS: Ht 154.9 cm; Wt 86.5 kg
[2025-01-27] MEDS: IPRATROPIUM 0.5MG/ALBUTEROL 2.5MG INH SOL UD 3ML (DUONEB) NEB ONE (06:39)
[2025-01-27 06:56] LABS: VENOUS BASE EXCESS -5.5 (-2.0-2.0); VENOUS HCO3 20.9 MMOL/L (23.0-27.0); VENOUS O2 SATURATION 93.5 % (60.0-80.0); VENOUS PARTIAL PRESSURE CO2 44.9 mmHg (38.0-50.0); VENOUS PARTIAL PRESSURE O2 82.9 mmHg (30.0-50.0); VENOUS PH 7.286 UNITS (7.330-7.430); VENOUS STANDARD HCO3 19.8 MMOL/L; VENOUS TOTAL CO2 22.3 MMOL/L (24.0-28.0)
[2025-01-27 07:03] LABS: BASO # 0.1 10^3/uL (0.0-0.2); BASO % 0.7 % (0.0-1.0); EOS # 0.3 10^3/uL (0.0-0.5); EOS % 2.7 % (0.0-3.0); HEMATOCRIT 32.9 % (36.0-47.0); LYMPH % 11.4 % (24.0-44.0); MEAN CORPUSCULAR HEMOGLOBIN 28.1 pg (27.0-33.0); MEAN CORPUSCULAR HGB CONC 30.4 g/dl (32.0-36.5); MEAN CORPUSCULAR VOLUME 92.4 fl (80.0-96.0); MONO # 0.4 10^3/uL (0.0-0.8); MONO % 3.8 % (2.0-8.0); NEUTROPHILS # 7.4 10^3/uL (1.5-8.5); NEUTROPHILS % 81.1 % (36.0-66.0); PLATELET COUNT, AUTOMATED 192 10^3/uL (150-450); RED BLOOD COUNT 3.56 10^6/uL (4.00-5.40); WHITE BLOOD COUNT 9.1 10^3/uL (4.0-10.0)
[2025-01-27] MEDS ORDERED: SODIUM CHLORIDE 0.9% INJ 10 ML SYR IV PRN ×2 (07:20)
[2025-01-27] MEDS ORDERED: ISOVUE-370 76% 100ML VIAL As Ordered ONE (07:47)
[2025-01-27] MEDS: FUROSEMIDE 40MG/4ML VIAL IV ONE (08:28)
[2025-01-27] MEDS: SODIUM CHLORIDE 0.9% INJ 10 ML SYR IV PRN (08:45)
[2025-01-27 08:54] LABS: ALBUMIN 3.2 G/DL (3.2-5.2); BILIRUBIN,DIRECT 0.3 MG/DL (<0.4); BILIRUBIN,TOTAL 0.8 MG/DL (0.3-1.2); CALCIUM LEVEL 8.6 MG/DL (8.3-10.6); CREATININE FOR GFR 6.2 MG/DL (0.55-1.30); GLOMERULAR FILTRATION RATE 6.9 (>32); MB/CK RELATIVE INDEX 3.61 (< OR =4); POTASSIUM SERUM 5.8 MMOL/L (3.5-5.1); TOTAL PROTEIN 6.3 G/DL (5.7-8.2)
[2025-01-27] MEDS: DOCUSATE SODIUM 100MG CAPSULE PO SCH (09:00)
[2025-01-27] MEDS ORDERED: SODIUM CHLORIDE 0.9% INJ 10 ML SYR IV SCH (09:00)
[2025-01-27] MEDS ORDERED: NEUR100C PO (09:01)
[2025-01-27] MEDS ORDERED: HOME MED LIST COMPLETE! XX SCH (09:05)
[2025-01-27] MEDS: CALCIUM CHLORIDE 10% 1 GM in D5W 100 ML IV ONE (10:00)
[2025-01-27] MEDS: PATIROMER SORBITEX CALCIUM 8.4 GM POWDER PACKET (VELTASSA) PO ONE (10:00)
[2025-01-27] MEDS ORDERED: SODIUM CHLORIDE 0.9% 1000 ML IV PRN (10:20)
[2025-01-27] MEDS ORDERED: HEPARIN 1,000UNITS/ML 10ML VIAL (FOR RADIOLOGY & DIALYSIS ONLY) XX SCH (10:20)
[2025-01-27] MEDS ORDERED: HEPARIN 1,000UNITS/ML 10ML VIAL (FOR RADIOLOGY & DIALYSIS ONLY) IV PRN (10:20)
[2025-01-27] MEDS ORDERED: ACETAMINOPHEN 325 MG TAB PO PRN (10:40)
[2025-01-27 10:48] LABS: CK-MB VALUE MASS 4.1 NG/ML (<3.6)
[2025-01-27 10:58] LABS: MB/CK RELATIVE INDEX 4.55 (< OR =4)
[2025-01-27] MEDS: ALTEPLASE 2MG/2ML VIAL IV PRN (15:07)
[2025-01-27] MEDS: FOLIC ACID 1MG TAB PO SCH (15:45)
[2025-01-27] MEDS: LEVOTHYROXINE 75MCG TABLET (0.075MG) PO SCH (15:45)
[2025-01-27] MEDS: allopurinoL 100 MG TAB PO SCH (15:45)
[2025-01-27] MEDS: PANTOPRAZOLE 40MG TAB (PROTONIX) PO SCH (15:45)
[2025-01-27 16:00] VITALS: BP 104/36; TEMP 97.6; O2SAT 86
[2025-01-27 17:32] VITALS: BP 103/76; TEMP 98.6; O2SAT 95
[2025-01-27] MEDS: MIDODRINE 2.5 MG TAB PO SCH (17:36)
[2025-01-27] MEDS: (RENVELA) SEVELAMER **CARBONate** 800 MG TAB PO SCH (17:36)
[2025-01-27 18:34] VITALS: O2SAT 97
[2025-01-27] MEDS: ADVAIR HFA 230/21MCG INHALER INH SCH (19:14)
[2025-01-27] MEDS: ATORVASTATIN 20 MG TAB PO SCH (20:18)
[2025-01-27] MEDS: GABAPENTIN 100 MG CAP PO SCH (20:18)
[2025-01-27 20:23] VITALS: BP 117/49; TEMP 98.2; O2SAT 93
[2025-01-28 03:39] VITALS: BP 117/50; TEMP 97.9; O2SAT 94
[2025-01-28 06:01] LABS: BASO % 0.7 % (0.0-1.0); EOS # 0.5 10^3/uL (0.0-0.5); EOS % 7.9 % (0.0-3.0); HEMATOCRIT 30.9 % (36.0-47.0); HEMOGLOBIN 9.5 g/dl (12.0-15.5); LYMPH # 0.7 10^3/uL (1.5-5.0); LYMPH % 11.8 % (24.0-44.0); MEAN CORPUSCULAR HEMOGLOBIN 28.1 pg (27.0-33.0); MEAN CORPUSCULAR HGB CONC 30.7 g/dl (32.0-36.5); MEAN CORPUSCULAR VOLUME 91.4 fl (80.0-96.0); MONO # 0.4 10^3/uL (0.0-0.8); MONO % 6.8 % (2.0-8.0); NEUTROPHILS # 4.1 10^3/uL (1.5-8.5); NEUTROPHILS % 72.4 % (36.0-66.0); PLATELET COUNT, AUTOMATED 144 10^3/uL (150-450); RED BLOOD COUNT 3.38 10^6/uL (4.00-5.40); WHITE BLOOD COUNT 5.7 10^3/uL (4.0-10.0)
[2025-01-28 06:35] LABS: CALCIUM LEVEL 8.9 MG/DL (8.3-10.6); CREATININE FOR GFR 3.97 MG/DL (0.55-1.30); GLOMERULAR FILTRATION RATE 11.5 (>32); POTASSIUM SERUM 4.2 MMOL/L (3.5-5.1)
== END 2025-01-28 15:07 | disposition home or self-care (01) ==
LOC: M ED 06:13 → M ED INP 10:38 → INTOOBSV 10:38 → M MSPAV 16:13
PROVIDERS: ADMIT Internal Medicine Nephrology; ATTEND Internal Medicine Nephrology
DX: N18.6 End stage renal disease (principal); I50.30 Unspecified diastolic (congestive) heart failure; E87.79 Other fluid overload; J96.21 Acute and chronic respiratory failure with hypoxia; Z91.158 Patient's noncompliance with renal dialysis for other reason; C34.32 Malignant neoplasm of lower lobe, left bronchus or lung; Z92.21 Personal history of antineoplastic chemotherapy; Z99.2 Dependence on renal dialysis; R04.0 Epistaxis; R31.9 Hematuria, unspecified; J44.9 Chronic obstructive pulmonary disease, unspecified; J96.11 Chronic respiratory failure with hypoxia; I95.9 Hypotension, unspecified; E87.5 Hyperkalemia; Z95.810 Presence of automatic (implantable) cardiac defibrillator; I27.20 Pulmonary hypertension, unspecified; Z86.718 Personal history of other venous thrombosis and embolism; Z86.711 Personal history of pulmonary embolism; I48.0 Paroxysmal atrial fibrillation; D75.829 Heparin-induced thrombocytopenia, unspecified; E03.9 Hypothyroidism, unspecified; I25.10 Atherosclerotic heart disease of native coronary artery without angina pectoris; I25.2 Old myocardial infarction; Z95.5 Presence of coronary angioplasty implant and graft; D63.1 Anemia in chronic kidney disease; G62.0 Drug-induced polyneuropathy; R26.9 Unspecified abnormalities of gait and mobility; Z99.3 Dependence on wheelchair; M10.9 Gout, unspecified; Z80.8 Family history of malignant neoplasm of other organs or systems; Z80.1 Family history of malignant neoplasm of trachea, bronchus and lung; Z87.891 Personal history of nicotine dependence; Z79.899 Other long term (current) drug therapy; Z79.51 Long term (current) use of inhaled steroids; Z79.890 Hormone replacement therapy
CPT/HCPCS: 36415; 71045; 71275; 80047; 80048; 80076; 82550; 82553; 82803; 83605; 83880; 84484; 85025; 86850; 86900; 86901; 87040; 87486; 87581; 87633; 87798; 90935; 93005; 93041; 94640; 94760; 96365; 96375; 99285; G0378; J1642; J1940; J2997; Q9967

== ENCOUNTER 2025-02-13 09:24 | Inpatient (IN) | payer MEDICARE, BC ==
[~2025-02-13] VITALS: Ht 157.5 cm; Wt 83.8 kg
[2025-02-13] VITALS (42 sets, daily range): BP systolic 69–145; BP diastolic 34–62; TEMP 98.6–100.6; O2SAT 90–99
[~2025-02-13 09:24] MED LIST changes: +NEUR100C PO
[2025-02-13] MEDS: ALBUTEROL SULFATE 2.5MG/0.5ML INH CONCENTRATE NEB SOLN INH ONE (10:09)
[2025-02-13] MEDS: IPRATROPIUM 0.5MG/ALBUTEROL 2.5MG INH SOL UD 3ML NEB ONE (10:09)
[2025-02-13] MEDS: methylPREDNISolone 125MG 2ML VIAL IV ONE (10:43)
[2025-02-13 11:04] LABS: VENOUS BASE EXCESS 1.2 (-2.0-2.0); VENOUS HCO3 28.6 MMOL/L (23.0-27.0); VENOUS O2 SATURATION 49.1 % (60.0-80.0); VENOUS PARTIAL PRESSURE O2 28.6 mmHg (30.0-50.0); VENOUS PH 7.303 UNITS (7.330-7.430); VENOUS STANDARD HCO3 24.5 MMOL/L; VENOUS TOTAL CO2 30.4 MMOL/L (24.0-28.0)
[2025-02-13 11:10] LABS: HEMATOCRIT 34.6 % (36.0-47.0); HEMOGLOBIN 10.9 g/dl (12.0-15.5); MEAN CORPUSCULAR HEMOGLOBIN 28.8 pg (27.0-33.0); MEAN CORPUSCULAR HGB CONC 31.5 g/dl (32.0-36.5); MEAN CORPUSCULAR VOLUME 91.5 fl (80.0-96.0); PLATELET COUNT, AUTOMATED 138 10^3/uL (150-450); RED BLOOD COUNT 3.78 10^6/uL (4.00-5.40); WHITE BLOOD COUNT 28.3 10^3/uL (4.0-10.0)
[2025-02-13 11:28] LABS: INR 1.31; PARTIAL THROMBOPLASTIN TIME 37.9 SECONDS (24.8-34.2); PROTHROMBIN TIME 16.6 SECONDS (12.5-14.5)
[2025-02-13 11:34] LABS: LYMPHOCYTES 1 % (16-44); NEUTROPHILS 96 % (28-66)
[2025-02-13 11:35] LABS: ALBUMIN 3.4 G/DL (3.2-5.2); BILIRUBIN,DIRECT 0.8 MG/DL (<0.4); BILIRUBIN,TOTAL 2.1 MG/DL (0.3-1.2); CALCIUM LEVEL 9.8 MG/DL (8.3-10.6); CREATININE FOR GFR 3.49 MG/DL (0.55-1.30); GLOMERULAR FILTRATION RATE 13.4 (>32); POTASSIUM SERUM 4.9 MMOL/L (3.5-5.1); TOTAL PROTEIN 7.3 G/DL (5.7-8.2)
[2025-02-13 11:36] LABS: PLATELET ESTIMATE DECREASED (NORMAL)
[2025-02-13] MEDS: NS 500 ML IV ONE (11:40)
[2025-02-13] MEDS: [UNRECOGNIZED DRUG - OTHER] IV STA (11:41)
[2025-02-13] MEDS: NS 0.9% IV STA (11:41)
[2025-02-13 11:43] LABS: PROCALCITONIN 25.76 ng/ml
[2025-02-13 11:43] LABS: APPEARANCE, URINE MANUAL TURBID (CLEAR); COLOR, URINE MANUAL BROWN (YELLOW)
[2025-02-13 11:46] LABS: NITRITE, URINE MANUAL POSITIVE (NEGATIVE)
[2025-02-13 11:47] LABS: BILIRUBIN, URINE MANUAL NEGATIVE (NEGATIVE); BLOOD URINE MANUAL POSITIVE (NEGATIVE); GLUCOSE, URINE (UA) MANUAL NEGATIVE (NEGATIVE); KETONE, URINE MANUAL NEGATIVE (NEGATIVE); PROTEIN, URINE MANUAL 3+ mg/dL (NEGATIVE); UROBILINOGEN, URINE MANUAL NORMAL (NORMAL)
[2025-02-13 11:48] LABS: LEUKOCYTE ESTERASE, URINE MAN POSITIVE (NEGATIVE)
[2025-02-13 11:49] LABS: RBC, URINE 15-20 /hpf (0-3); WBC, URINE TNTC /hpf (0-3)
[2025-02-13 11:50] LABS: BACTERIA, URINE LARGE AMOUNT; RENAL EPITHELIAL CELLS, URINE MOD AMOUNT /hpf
[2025-02-13 11:51] LABS: C REACTIVE PROTEIN QUANTITATIV 41.11 MG/DL (<1.0)
[2025-02-13 11:51] LABS: SQUAMOUS EPITHELIAL CELL URINE SMALL AMOUNT /hpf (SMALL AMT)
[2025-02-13 11:53] LABS: HYALINE CAST, URINE NONE SEEN /lpf (0-1)
[2025-02-13] MEDS ORDERED: HOME MED LIST COMPLETE! XX SCH (11:55)
[2025-02-13] MEDS: PIPERACILLIN/TAZOBACTAM SOD 4.5 GM in DEXTROSE 5% (D5W) ADV/MINI-BAG 50 ML IV ONE (12:02)
[2025-02-13 12:06] LABS: CK-MB VALUE MASS 1.2 NG/ML (<3.6)
[2025-02-13 12:09] LABS: ABG BASE EXCESS -2.5 (-2.0-2.0); ABG HCO3 21.5 MMOL/L (22.0-26.0); ABG O2 SATURATION 90.1 % (95.0-99.0); ABG PARTIAL PRESSURE CO2 34.6 mmHg (35.0-45.0); ABG PARTIAL PRESSURE O2 59.9 mmHg (75.0-100.0); ABG STANDARD HCO3 22.2 MMOL/L. (22.0-26.0); ABG TOTAL CO2 22.6 MMOL/L (23.0-31.0); ABG pH (ARTERIAL) 7.412 UNITS (7.350-7.450)
[2025-02-13 12:23] LABS: MB/CK RELATIVE INDEX 0.65 (< OR =4)
[2025-02-13 12:24] LABS: CK-MB VALUE MASS 1.1 NG/ML (<3.6)
[2025-02-13 12:30] LABS: MB/CK RELATIVE INDEX 0.63 (< OR =4)
[2025-02-13] MEDS: LevoFLOXacin IV 750 MG in IV 1 EA IV ONE (13:08)
[2025-02-13] MEDS: DEXTROSE 50% 50ML SYRINGE IV STA (13:08)
[2025-02-13] MEDS ORDERED: VANCOMYCIN HCL 1,000 MG, VIAL MATE ADAPTER 1 EACH in NS 250 ML IV SCH ×2 (13:10→18:00)
[2025-02-13] MEDS ORDERED: CEFEPIME HCL 2 GM in DEXTROSE 5% (D5W) ADV/MINI-BAG 50 ML IV SCH (13:10)
[2025-02-13] MEDS ORDERED: ONDANSETRON 4MG 2ML VIAL IV PRN (14:10)
[2025-02-13] MEDS ORDERED: PERCOCET 5MG/325MG TAB PO PRN (14:10)
[2025-02-13] MEDS ORDERED: KCL 20MEQ IN D5/NS 1000ML 1,000 ML IV SCH (14:10)
[2025-02-13] MEDS: VANCOMYCIN HCL 1,750 MG, VIAL MATE ADAPTER 1 EACH in NS 500 ML IV ONE (14:50)
[2025-02-13] MEDS: flumazeniL 0.5MG/5ML VIAL IV STA (15:30)
[2025-02-13] MEDS ORDERED: flumazeniL 0.5MG/5ML VIAL As Ordered ONE (15:38)
[2025-02-13] MEDS ORDERED: MIDAZOLAM INJ 2MG/2ML VIAL As Ordered ONE (15:38)
[2025-02-13] MEDS ORDERED: LIDOCAINE 1% MDV 20ML VIAL As Ordered ONE (15:39)
[2025-02-13] MEDS ORDERED: (RENVELA) SEVELAMER **CARBONate** 800 MG TAB PO SCH (16:00)
[2025-02-13] MEDS: LIDOCAINE 1% MDV 20ML VIAL SC STA (16:38)
[2025-02-13] MEDS: MIDAZOLAM INJ 2MG/2ML VIAL IV STA (16:39)
[2025-02-13] MEDS: KETOROLAC 30 MG/ML 1ML VIAL IV SCH (16:40)
[2025-02-13] MEDS: DIGOXIN INJ 0.5 MG/2 ML AMP IV SCH (16:51)
[2025-02-13] MEDS: MIDODRINE 2.5 MG TAB PO SCH (16:51)
[2025-02-13] MEDS: CEFEPIME HCL 1 GM in DEXTROSE 5% (D5W) ADV/MINI-BAG 50 ML IV SCH (16:52)
[2025-02-13] MEDS: (RENVELA) SEVELAMER **CARBONate** 800 MG TAB PO SCH (18:00)
[2025-02-13 18:01] LABS: SOURCE, BODY FLUID PLEURAL
[2025-02-13 18:02] LABS: APPEARANCE, BODY FLUID TURBID (CLEAR); PLEURAL FL COLOR PALE YELLOW (COLORLESS)
[2025-02-13] MEDS ORDERED: HEPARIN 1,000UNITS/ML 10ML VIAL (FOR RADIOLOGY & DIALYSIS ONLY) CRRT PRN ×2 (18:05)
[2025-02-13] MEDS ORDERED: SODIUM CHLORIDE 0.9% INJ 10 ML SYR CRRT PRN ×2 (18:05)
[2025-02-13] MEDS: LR 1,000 ML IV ONE (18:21)
[2025-02-13 18:43] LABS: PH BODY FLUID 6.753 UNITS (NOT ESTABLISHED); SOURCE, BODY FLUID pH PLEURAL
[2025-02-13 18:47] LABS: SOURCE, BODY FLUID ALBUMIN PLEURAL
[2025-02-13 18:51] LABS: SOURCE, BODY FLUID GLUCOSE PLEURAL; SOURCE, BODY FLUID TRIG PLEURAL; TRIGLYCERIDE, BODY FLUID 62 MG/DL (NOT ESTABLISHED)
[2025-02-13 18:53] LABS: AMYLASE, BODY FLUID 35 U/L (NOT ESTABLISHED); CHOLESTEROL, BODY FLUID 83 MG/DL (NOT ESTABLISHED); SOURCE, BODY FLUID AMYLASE PLEURAL; SOURCE, BODY FLUID CHOL PLEURAL
[2025-02-13 18:55] LABS: SOURCE, BODY FLUID TOT PROTEIN PLEURAL; TOTAL PROTEIN, BODY FLUID 4.7 G/DL (NOT ESTABLISHED)
[2025-02-13 19:02] LABS: LDH, BODY FLUID > 750 U/L (NOT ESTABLISHED); SOURCE, BODY FLUID LDH PLEURAL
[2025-02-13] MEDS: NOREPINEPHRINE 4MG IN D5 250ML 4 MG in IV 1 EA IV SCH (19:04)
[2025-02-13] MEDS: DOCUSATE SODIUM 100MG CAPSULE PO SCH (20:02)
[2025-02-13] MEDS: ATORVASTATIN 20 MG TAB PO SCH (20:10)
[2025-02-13] MEDS: metroNIDAZOLE 500 MG in IV 1 EA IV SCH (20:16)
[2025-02-13 23:17] LABS: HEMATOCRIT 29.6 % (36.0-47.0); HEMOGLOBIN 9.3 g/dl (12.0-15.5); MEAN CORPUSCULAR HEMOGLOBIN 28.5 pg (27.0-33.0); MEAN CORPUSCULAR HGB CONC 31.4 g/dl (32.0-36.5); MEAN CORPUSCULAR VOLUME 90.8 fl (80.0-96.0); PLATELET COUNT, AUTOMATED 132 10^3/uL (150-450); RED BLOOD COUNT 3.26 10^6/uL (4.00-5.40)
[2025-02-13] MEDS: CALCIUM GLUCONATE 1,000 MG, VIAL MATE ADAPTER 1 EACH in NS 100 ML IV SCH (23:28)
[2025-02-13 23:42] LABS: WHITE BLOOD COUNT 30.1 10^3/uL (4.0-10.0)
[2025-02-13 23:44] LABS: INR 1.87; PARTIAL THROMBOPLASTIN TIME 53.9 SECONDS (24.8-34.2); PROTHROMBIN TIME 21.7 SECONDS (12.5-14.5)
[2025-02-14] VITALS (73 sets, daily range): BP systolic -21–133; BP diastolic -29–77; TEMP 96.7–98.6; O2SAT 91–100
[2025-02-14 00:52] LABS: CALCIUM LEVEL 8.7 MG/DL (8.3-10.6); CREATININE FOR GFR 3.88 MG/DL (0.55-1.30); GLOMERULAR FILTRATION RATE 11.8 (>32); MAGNESIUM LEVEL 1.6 MG/DL (1.8-2.4)
[2025-02-14 01:17] LABS: PHOSPHORUS LEVEL 3.6 MG/DL (2.4-5.1)
[2025-02-14] MEDS: MAG SULF 1GM/100ML (MAG RUN) 1 GM in IV 1 EA IV SCH (01:31)
[2025-02-14 05:08] LABS: IONIZED CALCIUM 4.7 MG/DL (4.5-5.3)
[2025-02-14 05:12] LABS: BASO # 0.1 10^3/uL (0.0-0.2); BASO % 0.2 % (0.0-1.0); HEMATOCRIT 29.6 % (36.0-47.0); HEMOGLOBIN 9.4 g/dl (12.0-15.5); LYMPH # 0.3 10^3/uL (1.5-5.0); LYMPH % 1.3 % (24.0-44.0); MEAN CORPUSCULAR HGB CONC 31.8 g/dl (32.0-36.5); MEAN CORPUSCULAR VOLUME 91.4 fl (80.0-96.0); MONO # 0.6 10^3/uL (0.0-0.8); MONO % 2.4 % (2.0-8.0); NEUTROPHILS # 23.8 10^3/uL (1.5-8.5); NEUTROPHILS % 95.4 % (36.0-66.0); PLATELET COUNT, AUTOMATED 120 10^3/uL (150-450); RED BLOOD COUNT 3.24 10^6/uL (4.00-5.40)
[2025-02-14 05:28] LABS: INR 1.27; PARTIAL THROMBOPLASTIN TIME 46.3 SECONDS (24.8-34.2); PROTHROMBIN TIME 16.1 SECONDS (12.5-14.5)
[2025-02-14 05:37] LABS: CALCIUM LEVEL 8.7 MG/DL (8.3-10.6); CREATININE FOR GFR 3.84 MG/DL (0.55-1.30); DIGOXIN LEVEL 1.9 NG/ML (0.8-2.0)
[2025-02-14 05:39] LABS: CREATININE FOR GFR 3.81 MG/DL (0.55-1.30); GLOMERULAR FILTRATION RATE 12.1 (>32); MAGNESIUM LEVEL 2.3 MG/DL (1.8-2.4); PHOSPHORUS LEVEL 3.9 MG/DL (2.4-5.1)
[2025-02-14] MEDS ORDERED: HEPARIN 1,000UNITS/ML 10ML VIAL (FOR RADIOLOGY & DIALYSIS ONLY) IV PRN (06:00)
[2025-02-14] MEDS ORDERED: SODIUM CHLORIDE 0.9% 1000 ML IV PRN (06:00)
[2025-02-14] MEDS ORDERED: HEPARIN 1,000UNITS/ML 10ML VIAL (FOR RADIOLOGY & DIALYSIS ONLY) XX SCH (06:00)
[2025-02-14] MEDS ORDERED: LIDOCAINE 1% SDV 5ML VIAL SC PRN (06:00)
[2025-02-14 06:18] LABS: ABG BASE EXCESS -3.2 (-2.0-2.0); ABG HCO3 23.5 MMOL/L (22.0-26.0); ABG PARTIAL PRESSURE CO2 50.4 mmHg (35.0-45.0); ABG PARTIAL PRESSURE O2 76.7 mmHg (75.0-100.0); ABG STANDARD HCO3 21.7 MMOL/L. (22.0-26.0); ABG TOTAL CO2 25.1 MMOL/L (23.0-31.0); ABG pH (ARTERIAL) 7.287 UNITS (7.350-7.450)
[2025-02-14] MEDS: LEVOTHYROXINE 75MCG TABLET (0.075MG) PO SCH (06:26)
[2025-02-14] MEDS: LEVALBUTEROL 1.25 MG 0.5ML CONCENTRATE NEB NEB SCH (08:40)
[2025-02-14] MEDS: ADVAIR HFA 230/21MCG INHALER INH SCH (08:40)
[2025-02-14] MEDS: MOM 30ML SUSPENSION UDC PO SCH (09:00)
[2025-02-14] MEDS ORDERED: MIDODRINE 2.5 MG TAB PO SCH (09:00)
[2025-02-14] MEDS ORDERED: PANTOPRAZOLE 40MG TAB (PROTONIX) PO SCH (09:00)
[2025-02-14] MEDS: allopurinoL 100 MG TAB PO SCH (09:12)
[2025-02-14] MEDS: FOLIC ACID 1MG TAB PO SCH (09:12)
[2025-02-14] MEDS: PANTOPRAZOLE 40MG TAB (PROTONIX) PO SCH (09:13)
[2025-02-14] MEDS ORDERED: CEFEPIME HCL 2 GM in DEXTROSE 5% (D5W) ADV/MINI-BAG 50 ML IV SCH (10:00)
[2025-02-14] MEDS: VANCOMYCIN HCL 750 MG, VIAL MATE ADAPTER 1 EACH in NS 250 ML IV SCH (10:09)
[2025-02-14 11:42] LABS: IONIZED CALCIUM 4.6 MG/DL (4.5-5.3)
[2025-02-14 11:45] LABS: HEMATOCRIT 28.9 % (36.0-47.0); MEAN CORPUSCULAR HEMOGLOBIN 28.6 pg (27.0-33.0); MEAN CORPUSCULAR HGB CONC 31.1 g/dl (32.0-36.5); MEAN CORPUSCULAR VOLUME 91.7 fl (80.0-96.0); PLATELET COUNT, AUTOMATED 100 10^3/uL (150-450); RED BLOOD COUNT 3.15 10^6/uL (4.00-5.40); WHITE BLOOD COUNT 21.3 10^3/uL (4.0-10.0)
[2025-02-14] MEDS: CEFEPIME HCL 2 GM in DEXTROSE 5% (D5W) ADV/MINI-BAG 50 ML IV SCH (11:56)
[2025-02-14 11:58] LABS: INR 1.23; PARTIAL THROMBOPLASTIN TIME 50.7 SECONDS (24.8-34.2); PROTHROMBIN TIME 15.7 SECONDS (12.5-14.5)
[2025-02-14] MEDS: UNRESOLVED CLARIFICATION ENTRY XX SCH (12:00)
[2025-02-14 12:18] LABS: CALCIUM LEVEL 8.6 MG/DL (8.3-10.6); CREATININE FOR GFR 3.12 MG/DL (0.55-1.30); GLOMERULAR FILTRATION RATE 15.2 (>32); MAGNESIUM LEVEL 2.2 MG/DL (1.8-2.4); PHOSPHORUS LEVEL 3.6 MG/DL (2.4-5.1); POTASSIUM SERUM 4.6 MMOL/L (3.5-5.1)
[2025-02-14] MEDS: CALCIUM GLUCONATE 1,000 MG, VIAL MATE ADAPTER 1 EACH in NS 100 ML IV ONE (13:04)
[2025-02-14 17:36] LABS: IONIZED CALCIUM 4.8 MG/DL (4.5-5.3)
[2025-02-14 17:42] LABS: HEMATOCRIT 29.6 % (36.0-47.0); HEMOGLOBIN 8.9 g/dl (12.0-15.5); MEAN CORPUSCULAR HEMOGLOBIN 27.7 pg (27.0-33.0); MEAN CORPUSCULAR HGB CONC 30.1 g/dl (32.0-36.5); MEAN CORPUSCULAR VOLUME 92.2 fl (80.0-96.0); PLATELET COUNT, AUTOMATED 105 10^3/uL (150-450); RED BLOOD COUNT 3.21 10^6/uL (4.00-5.40); WHITE BLOOD COUNT 18.3 10^3/uL (4.0-10.0)
[2025-02-14 18:11] LABS: CALCIUM LEVEL 8.4 MG/DL (8.3-10.6); CREATININE FOR GFR 2.67 MG/DL (0.55-1.30); GLOMERULAR FILTRATION RATE 18.2 (>32); MAGNESIUM LEVEL 2.1 MG/DL (1.8-2.4); PHOSPHORUS LEVEL 3.7 MG/DL (2.4-5.1); POTASSIUM SERUM 4.3 MMOL/L (3.5-5.1)
[2025-02-14 23:06] LABS: IONIZED CALCIUM 4.8 MG/DL (4.5-5.3)
[2025-02-14 23:10] LABS: HEMATOCRIT 29.1 % (36.0-47.0); HEMOGLOBIN 8.7 g/dl (12.0-15.5); MEAN CORPUSCULAR HEMOGLOBIN 27.8 pg (27.0-33.0); MEAN CORPUSCULAR HGB CONC 29.9 g/dl (32.0-36.5); PLATELET COUNT, AUTOMATED 104 10^3/uL (150-450); RED BLOOD COUNT 3.13 10^6/uL (4.00-5.40); WHITE BLOOD COUNT 16.5 10^3/uL (4.0-10.0)
[2025-02-14 23:45] LABS: CALCIUM LEVEL 8.5 MG/DL (8.3-10.6); CREATININE FOR GFR 2.35 MG/DL (0.55-1.30); GLOMERULAR FILTRATION RATE 21.1 (>32); MAGNESIUM LEVEL 2.2 MG/DL (1.8-2.4); PHOSPHORUS LEVEL 3.8 MG/DL (2.4-5.1); POTASSIUM SERUM 4.1 MMOL/L (3.5-5.1)
[2025-02-15] VITALS (97 sets, daily range): BP systolic 73–133; BP diastolic 40–63; TEMP 97.1–98.2; O2SAT 87–100
[2025-02-15 05:10] LABS: IONIZED CALCIUM 4.8 MG/DL (4.5-5.3)
[2025-02-15 05:19] LABS: BASO % 0.1 % (0.0-1.0); HEMATOCRIT 28.5 % (36.0-47.0); HEMOGLOBIN 8.7 g/dl (12.0-15.5); LYMPH # 0.3 10^3/uL (1.5-5.0); LYMPH % 1.8 % (24.0-44.0); MEAN CORPUSCULAR HEMOGLOBIN 28.1 pg (27.0-33.0); MEAN CORPUSCULAR HGB CONC 30.5 g/dl (32.0-36.5); MEAN CORPUSCULAR VOLUME 91.9 fl (80.0-96.0); MONO # 0.7 10^3/uL (0.0-0.8); MONO % 3.9 % (2.0-8.0); NEUTROPHILS # 15.5 10^3/uL (1.5-8.5); NEUTROPHILS % 93.7 % (36.0-66.0); PLATELET COUNT, AUTOMATED 104 10^3/uL (150-450); WHITE BLOOD COUNT 16.6 10^3/uL (4.0-10.0)
[2025-02-15] MEDS: ACETAMINOPHEN 325 MG TAB PO PRN (05:39)
[2025-02-15 05:53] LABS: CALCIUM LEVEL 8.6 MG/DL (8.3-10.6); CREATININE FOR GFR 1.96 MG/DL (0.55-1.30); GLOMERULAR FILTRATION RATE 26.1 (>32); MAGNESIUM LEVEL 2.1 MG/DL (1.8-2.4); PHOSPHORUS LEVEL 3.5 MG/DL (2.4-5.1); POTASSIUM SERUM 3.9 MMOL/L (3.5-5.1)
[2025-02-15] MEDS: KCL 20MEQ IN 100ML SWI (KRUN) 20 MEQ in IV 1 EA IV ONE (08:08)
[2025-02-15] MEDS: AMIODARONE HCL 150 MG in IV 1 EA IV ONE (09:49)
[2025-02-15] MEDS: PHENYLEPHRINE HCL INJ 50 MG in D5W 495 ML IV SCH (10:07)
[2025-02-15 11:33] LABS: IONIZED CALCIUM 4.7 MG/DL (4.5-5.3)
[2025-02-15 11:41] LABS: HEMATOCRIT 28.9 % (36.0-47.0); HEMOGLOBIN 8.9 g/dl (12.0-15.5); MEAN CORPUSCULAR HEMOGLOBIN 28.1 pg (27.0-33.0); MEAN CORPUSCULAR HGB CONC 30.8 g/dl (32.0-36.5); MEAN CORPUSCULAR VOLUME 91.2 fl (80.0-96.0); PLATELET COUNT, AUTOMATED 109 10^3/uL (150-450); RED BLOOD COUNT 3.17 10^6/uL (4.00-5.40); WHITE BLOOD COUNT 18.9 10^3/uL (4.0-10.0)
[2025-02-15 12:03] LABS: CALCIUM LEVEL 8.3 MG/DL (8.3-10.6); CREATININE FOR GFR 1.82 MG/DL (0.55-1.30); GLOMERULAR FILTRATION RATE 28.4 (>32); PHOSPHORUS LEVEL 2.7 MG/DL (2.4-5.1); POTASSIUM SERUM 4.1 MMOL/L (3.5-5.1)
[2025-02-15] MEDS ORDERED: MEROPENEM INJ 2 GM in NS 100 ML IV SCH (16:05)
[2025-02-15] MEDS: MEROPENEM INJ 500 MG in IV 1 EA IV SCH (17:29)
[2025-02-15] MEDS: PERCOCET 5MG/325MG TAB PO PRN (17:30)
[2025-02-15] MEDS: MORPHINE 2 MG/ML 1ML VIAL IV PRN (18:42)
[2025-02-16] VITALS (67 sets, daily range): BP systolic 79–138; BP diastolic 44–63; TEMP 97–98; O2SAT 83–100
[2025-02-16 05:19] LABS: BASO % 0.1 % (0.0-1.0); EOS # 0.1 10^3/uL (0.0-0.5); EOS % 0.4 % (0.0-3.0); HEMATOCRIT 28.2 % (36.0-47.0); HEMOGLOBIN 8.5 g/dl (12.0-15.5); LYMPH # 0.5 10^3/uL (1.5-5.0); LYMPH % 2.6 % (24.0-44.0); MEAN CORPUSCULAR HEMOGLOBIN 27.5 pg (27.0-33.0); MEAN CORPUSCULAR HGB CONC 30.1 g/dl (32.0-36.5); MEAN CORPUSCULAR VOLUME 91.3 fl (80.0-96.0); MONO # 1.1 10^3/uL (0.0-0.8); MONO % 5.5 % (2.0-8.0); NEUTROPHILS # 18.7 10^3/uL (1.5-8.5); NEUTROPHILS % 90.6 % (36.0-66.0); PLATELET COUNT, AUTOMATED 100 10^3/uL (150-450); RED BLOOD COUNT 3.09 10^6/uL (4.00-5.40); WHITE BLOOD COUNT 20.7 10^3/uL (4.0-10.0)
[2025-02-16 05:34] LABS: ALBUMIN 2.4 G/DL (3.2-5.2); BILIRUBIN,TOTAL 0.8 MG/DL (0.3-1.2); CALCIUM LEVEL 8.6 MG/DL (8.3-10.6); CREATININE FOR GFR 2.86 MG/DL (0.55-1.30); GLOMERULAR FILTRATION RATE 16.8 (>32); MAGNESIUM LEVEL 2.2 MG/DL (1.8-2.4); PHOSPHORUS LEVEL 3.2 MG/DL (2.4-5.1); POTASSIUM SERUM 4.2 MMOL/L (3.5-5.1); TOTAL PROTEIN 5.8 G/DL (5.7-8.2)
[2025-02-16 05:36] LABS: CALCIUM LEVEL 8.6 MG/DL (8.3-10.6); CREATININE FOR GFR 2.85 MG/DL (0.55-1.30); GLOMERULAR FILTRATION RATE 16.9 (>32); POTASSIUM SERUM 4.1 MMOL/L (3.5-5.1)
[2025-02-16] MEDS ORDERED: LIDOCAINE 1% SDV 5ML VIAL SC PRN (08:35)
[2025-02-16] MEDS ORDERED: HEPARIN 1,000UNITS/ML 10ML VIAL (FOR RADIOLOGY & DIALYSIS ONLY) XX SCH (08:35)
[2025-02-16] MEDS ORDERED: SODIUM CHLORIDE 0.9% 1000 ML IV PRN (08:35)
[2025-02-16] MEDS: LIDOCAINE 5% (LIDODERM) PATCH TD SCH (09:48)
[2025-02-16] MEDS: MIDODRINE 5 MG TAB PO SCH (12:00)
[2025-02-16 13:38] LABS: APPEARANCE, BODY FLUID CLOUDY (CLEAR); PH BODY FLUID 7.651 UNITS (NOT ESTABLISHED); PLEURAL FL COLOR PINK (COLORLESS); SOURCE, BODY FLUID PLEURAL; SOURCE, BODY FLUID pH PLEURAL
[2025-02-16 13:58] LABS: SOURCE, BODY FLUID ALBUMIN PLEURAL
[2025-02-16] MEDS: HEPARIN 1,000UNITS/ML 10ML VIAL (FOR RADIOLOGY & DIALYSIS ONLY) IV PRN (14:01)
[2025-02-16 14:03] LABS: SOURCE, BODY FLUID GLUCOSE PLEURAL; SOURCE, BODY FLUID TRIG PLEURAL; TRIGLYCERIDE, BODY FLUID 22 MG/DL (NOT ESTABLISHED)
[2025-02-16 14:05] LABS: AMYLASE, BODY FLUID 30 U/L (NOT ESTABLISHED); LDH, BODY FLUID 123 U/L (NOT ESTABLISHED); SOURCE, BODY FLUID AMYLASE PLEURAL; SOURCE, BODY FLUID LDH PLEURAL
[2025-02-16 14:06] LABS: CHOLESTEROL, BODY FLUID < 25 MG/DL (NOT ESTABLISHED); SOURCE, BODY FLUID CHOL PLEURAL
[2025-02-16] MEDS: DARBEPOETIN 100MCG/0.5ML *DIALYSIS* SYRINGE IV SCH (14:09)
[2025-02-16 14:30] LABS: SOURCE, BODY FLUID TOT PROTEIN PLEURAL; TOTAL PROTEIN, BODY FLUID < 2.0 G/DL (NOT ESTABLISHED)
[2025-02-17] VITALS (54 sets, daily range): BP systolic 94–134; BP diastolic 48–62; TEMP 97.6–98; O2SAT 94–100
[2025-02-17 04:57] LABS: BASO % 0.1 % (0.0-1.0); EOS # 0.2 10^3/uL (0.0-0.5); EOS % 1.2 % (0.0-3.0); HEMATOCRIT 28.8 % (36.0-47.0); LYMPH # 0.6 10^3/uL (1.5-5.0); LYMPH % 3.5 % (24.0-44.0); MEAN CORPUSCULAR HEMOGLOBIN 27.8 pg (27.0-33.0); MEAN CORPUSCULAR HGB CONC 31.3 g/dl (32.0-36.5); MEAN CORPUSCULAR VOLUME 88.9 fl (80.0-96.0); MONO # 0.9 10^3/uL (0.0-0.8); MONO % 5.9 % (2.0-8.0); NEUTROPHILS # 13.4 10^3/uL (1.5-8.5); NEUTROPHILS % 85.8 % (36.0-66.0); RED BLOOD COUNT 3.24 10^6/uL (4.00-5.40); WHITE BLOOD COUNT 15.6 10^3/uL (4.0-10.0)
[2025-02-17 05:02] LABS: PLATELET COUNT, AUTOMATED 81 10^3/uL (150-450)
[2025-02-17 05:19] LABS: CALCIUM LEVEL 8.3 MG/DL (8.3-10.6); CREATININE FOR GFR 2.05 MG/DL (0.55-1.30); GLOMERULAR FILTRATION RATE 24.7 (>32); POTASSIUM SERUM 3.9 MMOL/L (3.5-5.1)
[2025-02-17 05:50] LABS: MAGNESIUM LEVEL 1.9 MG/DL (1.8-2.4); PHOSPHORUS LEVEL 2.3 MG/DL (2.4-5.1)
[2025-02-17] MEDS ORDERED: HEPARIN 1,000UNITS/ML 10ML VIAL (FOR RADIOLOGY & DIALYSIS ONLY) XX SCH (06:00)
[2025-02-17] MEDS ORDERED: SODIUM CHLORIDE 0.9% 1000 ML IV PRN (06:00)
[2025-02-17] MEDS ORDERED: LIDOCAINE 1% SDV 5ML VIAL SC PRN (06:00)
[2025-02-17] MEDS: HEPARIN 1,000UNITS/ML 10ML VIAL (FOR RADIOLOGY & DIALYSIS ONLY) IV PRN (15:49)
[2025-02-18] VITALS (13 sets, daily range): BP systolic 116–155; BP diastolic 58–70; TEMP 96.6–98.1; O2SAT 96–99
[2025-02-18 05:02] LABS: HEMATOCRIT 30.4 % (36.0-47.0); HEMOGLOBIN 9.6 g/dl (12.0-15.5); MEAN CORPUSCULAR HEMOGLOBIN 27.7 pg (27.0-33.0); MEAN CORPUSCULAR HGB CONC 31.6 g/dl (32.0-36.5); MEAN CORPUSCULAR VOLUME 87.6 fl (80.0-96.0); PLATELET COUNT, AUTOMATED 107 10^3/uL (150-450); RED BLOOD COUNT 3.47 10^6/uL (4.00-5.40); WHITE BLOOD COUNT 13.9 10^3/uL (4.0-10.0)
[2025-02-18 05:34] LABS: CALCIUM LEVEL 8.4 MG/DL (8.3-10.6); CREATININE FOR GFR 1.75 MG/DL (0.55-1.30); GLOMERULAR FILTRATION RATE 29.7 (>32); POTASSIUM SERUM 4.1 MMOL/L (3.5-5.1)
[2025-02-18] MEDS: MEROPENEM INJ 500 MG in IV 1 EA IV SCH (06:22)
[2025-02-18 07:31] LABS: LYMPHOCYTES 11 % (16-44); METAMYELOCYTES 2 % (0-0); MONOCYTES 4 % (0-5); MYELOCYTES 1 % (0-0); NEUTROPHILS 79 % (28-66); PLATELET ESTIMATE DECREASED (NORMAL)
[2025-02-18] MEDS: NYSTATIN 500,000U/5ML SUSP UDC SS SCH (13:00)
[2025-02-19 04:12] VITALS: BP 123/58; TEMP 97.2; O2SAT 100
[2025-02-19] MEDS ORDERED: LIDOCAINE 1% SDV 5ML VIAL SC PRN (06:00)
[2025-02-19] MEDS ORDERED: SODIUM CHLORIDE 0.9% 1000 ML IV PRN (06:00)
[2025-02-19 07:24] LABS: HEMATOCRIT 31.9 % (36.0-47.0); HEMOGLOBIN 10.1 g/dl (12.0-15.5); MEAN CORPUSCULAR HEMOGLOBIN 27.9 pg (27.0-33.0); MEAN CORPUSCULAR HGB CONC 31.7 g/dl (32.0-36.5); MEAN CORPUSCULAR VOLUME 88.1 fl (80.0-96.0); PLATELET COUNT, AUTOMATED 168 10^3/uL (150-450); RED BLOOD COUNT 3.62 10^6/uL (4.00-5.40); WHITE BLOOD COUNT 12.6 10^3/uL (4.0-10.0)
[2025-02-19 07:53] VITALS: BP 130/63; TEMP 97.7; O2SAT 100
[2025-02-19 07:54] LABS: ALBUMIN 2.4 G/DL (3.2-5.2); ALKALINE PHOSPHATASE 138 U/L (35-104); ALT/SGPT < 9 U/L (7.0-40); AST/SGOT 24 U/L (<34); BILIRUBIN,DIRECT 0.2 MG/DL (<0.4); BILIRUBIN,TOTAL 0.6 MG/DL (0.3-1.2); BLOOD UREA NITROGEN 30 MG/DL (9-23); CALCIUM LEVEL 8.8 MG/DL (8.3-10.6); CARBON DIOXIDE LEVEL 27 MMOL/L (20-31); CHLORIDE LEVEL 97 MMOL/L (98-107); CREATININE FOR GFR 3.45 MG/DL (0.55-1.30); GLOMERULAR FILTRATION RATE 13.6 (>32); GLUCOSE, FASTING 84 MG/DL (74-106); MAGNESIUM LEVEL 2.2 MG/DL (1.8-2.4); POTASSIUM SERUM 4.3 MMOL/L (3.5-5.1); SODIUM LEVEL 135 MMOL/L (136-145); TOTAL PROTEIN 6.5 G/DL (5.7-8.2)
[2025-02-19 08:07] LABS: BASO % 0.2 % (0.0-1.0); EOS # 0.4 10^3/uL (0.0-0.5); EOS % 2.8 % (0.0-3.0); LYMPH # 0.9 10^3/uL (1.5-5.0); LYMPH % 6.8 % (24.0-44.0); MONO # 0.9 10^3/uL (0.0-0.8); MONO % 7.1 % (2.0-8.0); NEUTROPHILS # 9.5 10^3/uL (1.5-8.5); NEUTROPHILS % 75.3 % (36.0-66.0)
[2025-02-19] MEDS: ALTEPLASE 2MG/2ML VIAL XX ONE ×2 (09:46→11:19)
[2025-02-19] MEDS: MIDODRINE 5 MG TAB PO SCH (12:00)
[2025-02-19 12:15] VITALS: BP 131/62; TEMP 97.6; O2SAT 100
[2025-02-19 15:46] VITALS: BP 113/53; TEMP 97.8; O2SAT 99
[2025-02-19] MEDS ORDERED: MEROPENEM INJ 500 MG in IV 1 EA IV SCH (18:00)
[2025-02-19 19:45] VITALS: BP 129/62; TEMP 97.2; O2SAT 100
[2025-02-19 20:00] VITALS: BP 129/62; PULSE 74; TEMP 97.2; O2SAT 100
[2025-02-20] VITALS (8 sets, daily range): BP systolic 102–129; BP diastolic 42–62; TEMP 97.2–98.1; O2SAT 95–100
[2025-02-20 05:39] LABS: BASO % 0.2 % (0.0-1.0); EOS # 0.5 10^3/uL (0.0-0.5); EOS % 3.8 % (0.0-3.0); HEMATOCRIT 29.9 % (36.0-47.0); HEMOGLOBIN 9.5 g/dl (12.0-15.5); LYMPH % 7.6 % (24.0-44.0); MEAN CORPUSCULAR HGB CONC 31.8 g/dl (32.0-36.5); MEAN CORPUSCULAR VOLUME 88.2 fl (80.0-96.0); MONO # 0.8 10^3/uL (0.0-0.8); MONO % 6.7 % (2.0-8.0); NEUTROPHILS # 9.3 10^3/uL (1.5-8.5); NEUTROPHILS % 74.5 % (36.0-66.0); PLATELET COUNT, AUTOMATED 173 10^3/uL (150-450); RED BLOOD COUNT 3.39 10^6/uL (4.00-5.40); WHITE BLOOD COUNT 12.5 10^3/uL (4.0-10.0)
[2025-02-20] MEDS: CEFDINIR 300 MG CAP (OMNICEF) PO ONE (06:08)
[2025-02-20 06:17] LABS: ALBUMIN 2.3 G/DL (3.2-5.2); BILIRUBIN,DIRECT 0.2 MG/DL (<0.4); BILIRUBIN,TOTAL 0.6 MG/DL (0.3-1.2); CALCIUM LEVEL 8.2 MG/DL (8.3-10.6); CREATININE FOR GFR 2.56 MG/DL (0.55-1.30); GLOMERULAR FILTRATION RATE 18.3 (>32); MAGNESIUM LEVEL 1.9 MG/DL (1.8-2.4); POTASSIUM SERUM 4.5 MMOL/L (3.5-5.1); TOTAL PROTEIN 6.2 G/DL (5.7-8.2)
[2025-02-21] VITALS (12 sets, daily range): BP systolic 82–128; BP diastolic 36–64; TEMP 97.5–98.4; O2SAT 94–100
[2025-02-21] MEDS ORDERED: HEPARIN 1,000UNITS/ML 10ML VIAL (FOR RADIOLOGY & DIALYSIS ONLY) IV PRN (06:45)
[2025-02-21] MEDS ORDERED: SODIUM CHLORIDE 0.9% 1000 ML IV PRN (06:45)
[2025-02-21] MEDS ORDERED: HEPARIN 1,000UNITS/ML 10ML VIAL (FOR RADIOLOGY & DIALYSIS ONLY) XX SCH (06:45)
[2025-02-21] MEDS: ALTEPLASE 2MG/2ML VIAL IV PRN (11:12)
[2025-02-21] MEDS: CEFDINIR 300 MG CAP (OMNICEF) PO SCH (16:26)
[2025-02-21] MEDS: MIDODRINE 5 MG TAB PO ONE (17:02)
[2025-02-21] MEDS: MIDODRINE 2.5 MG TAB PO ONE (20:42)
[2025-02-21] MEDS: SODIUM CHLORIDE 0.9% 1000 ML IV ONE (22:48)
[2025-02-22 03:59] VITALS: BP 109/39; TEMP 98.2; O2SAT 94
[2025-02-22 07:30] VITALS: O2SAT 95
[2025-02-22 07:57] VITALS: BP 97/37; TEMP 97.5; O2SAT 99
[2025-02-22] MEDS: MIDODRINE 5 MG TAB PO SCH (08:02)
[2025-02-22 12:00] VITALS: BP 103/46; TEMP 97.7; O2SAT 93
[2025-02-22 16:00] VITALS: BP 101/46; TEMP 97.9; O2SAT 91
[2025-02-23] VITALS (7 sets, daily range): BP systolic 80–119; BP diastolic 30–46; TEMP 97.3–98.2; O2SAT 91–95
[2025-02-23] MEDS: MIDODRINE 5 MG TAB PO ONE (00:21)
[2025-02-23 10:02] LABS: BASO % 0.1 % (0.0-1.0); EOS # 0.2 10^3/uL (0.0-0.5); EOS % 1.2 % (0.0-3.0); HEMATOCRIT 28.3 % (36.0-47.0); HEMOGLOBIN 8.9 g/dl (12.0-15.5); LYMPH # 0.6 10^3/uL (1.5-5.0); MEAN CORPUSCULAR HEMOGLOBIN 27.1 pg (27.0-33.0); MEAN CORPUSCULAR HGB CONC 31.4 g/dl (32.0-36.5); MONO # 0.8 10^3/uL (0.0-0.8); MONO % 5.3 % (2.0-8.0); NEUTROPHILS # 13.1 10^3/uL (1.5-8.5); NEUTROPHILS % 88.2 % (36.0-66.0); PLATELET COUNT, AUTOMATED 193 10^3/uL (150-450); RED BLOOD COUNT 3.29 10^6/uL (4.00-5.40); WHITE BLOOD COUNT 14.9 10^3/uL (4.0-10.0)
[2025-02-23 10:30] LABS: CALCIUM LEVEL 8.1 MG/DL (8.3-10.6); CREATININE FOR GFR 4.5 MG/DL (0.55-1.30); GLOMERULAR FILTRATION RATE 9.3 (>32); POTASSIUM SERUM 4.3 MMOL/L (3.5-5.1)
[2025-02-23] MEDS: MIDODRINE 5 MG TAB PO SCH (12:09)
[2025-02-23] MEDS: BISACODYL 10MG SUPP PR PRN (13:07)
[2025-02-24] VITALS (7 sets, daily range): BP systolic 96–121; BP diastolic 34–45; TEMP 97.3–97.9; O2SAT 90–100
[2025-02-24] MEDS ORDERED: HEPARIN 1,000UNITS/ML 10ML VIAL (FOR RADIOLOGY & DIALYSIS ONLY) IV PRN (06:00)
[2025-02-24] MEDS ORDERED: SODIUM CHLORIDE 0.9% 1000 ML IV PRN (06:00)
[2025-02-24] MEDS ORDERED: HEPARIN 1,000UNITS/ML 10ML VIAL (FOR RADIOLOGY & DIALYSIS ONLY) XX SCH (06:00)
[2025-02-25] VITALS (7 sets, daily range): BP systolic 100–129; BP diastolic 40–48; TEMP 97.5–97.7; O2SAT 98–100
[2025-02-26] MEDS ORDERED: PERMETHRIN 5% CREAM 60 GM TOP SCH
[2025-02-26 04:10] VITALS: BP 88/64; TEMP 97.9; O2SAT 97
[2025-02-26] MEDS ORDERED: SODIUM CHLORIDE 0.9% 1000 ML IV PRN (06:00)
[2025-02-26] MEDS ORDERED: HEPARIN 1,000UNITS/ML 10ML VIAL (FOR RADIOLOGY & DIALYSIS ONLY) XX SCH (06:00)
[2025-02-26] MEDS ORDERED: HEPARIN 1,000UNITS/ML 10ML VIAL (FOR RADIOLOGY & DIALYSIS ONLY) IV PRN (06:00)
[2025-02-26 07:56] VITALS: BP 110/46; TEMP 97.5; O2SAT 100
[2025-02-26 12:23] VITALS: BP 88/42; TEMP 97.5; O2SAT 100
[2025-02-26 13:25] VITALS: BP 126/47; TEMP 97.5; O2SAT 98
[2025-02-26 16:12] VITALS: BP 102/40; TEMP 97.5; O2SAT 98
[2025-02-26] MEDS: PERMETHRIN 5% CREAM 60 GM TOP ONE (19:58)
[2025-02-26] MEDS: AMOXICILLIN 500 MG CAP PO SCH (19:58)
[2025-02-26 20:00] VITALS: BP 100/42
[2025-02-26] MEDS: LEVALBUTEROL 1.25 MG 0.5ML CONCENTRATE NEB NEB PRN (23:56)
[2025-02-27] VITALS (7 sets, daily range): BP systolic 64–88; BP diastolic 30–52; TEMP 97.9–98.1; O2SAT 97–99
[2025-02-27] MEDS ORDERED: PERMETHRIN 5% CREAM 60 GM TOP SCH
[2025-02-27] MEDS: SODIUM CHLORIDE 0.9% 250ML IV ONE ×4 (00:30→04:03)
[2025-02-27] MEDS ORDERED: MIDODRINE 5 MG TAB PO SCH ×2 (03:50→04:00)
[2025-02-27] MEDS: MIDODRINE 5 MG TAB PO SCH (04:01)
[2025-02-27 06:23] LABS: HEMATOCRIT 23.7 % (36.0-47.0); HEMOGLOBIN 7.3 g/dl (12.0-15.5); MEAN CORPUSCULAR HEMOGLOBIN 27.2 pg (27.0-33.0); MEAN CORPUSCULAR HGB CONC 30.8 g/dl (32.0-36.5); MEAN CORPUSCULAR VOLUME 88.4 fl (80.0-96.0); PLATELET COUNT, AUTOMATED 227 10^3/uL (150-450); RED BLOOD COUNT 2.68 10^6/uL (4.00-5.40); WHITE BLOOD COUNT 13.1 10^3/uL (4.0-10.0)
[2025-02-27 06:45] LABS: ALBUMIN 1.9 G/DL (3.2-5.2); CALCIUM LEVEL 8.1 MG/DL (8.3-10.6); CREATININE FOR GFR 2.72 MG/DL (0.55-1.30); PHOSPHORUS LEVEL 3.8 MG/DL (2.4-5.1); POTASSIUM SERUM 4.4 MMOL/L (3.5-5.1)
[2025-02-27 06:57] LABS: C REACTIVE PROTEIN QUANTITATIV 16.81 MG/DL (<1.0)
[2025-02-27] MEDS: **SEND HOME SECOND DOSE OF PERMETHRIN** MISC XX SCH (09:00)
[2025-02-27] MEDS ORDERED: ADVAIR HFA 230/21MCG INHALER INH PRN (11:40)
[2025-02-27] MEDS ORDERED: ONDANSETRON 4MG ORAL DISINTEGRATING TAB PO PRN (11:45)
[2025-02-27] MEDS ORDERED: ATROPINE SULFATE 1% OPHTH SOLN 2ML BTL SL PRN (11:45)
[2025-02-27] MEDS: MORPHINE 10MG/0.5ML ORAL CONCENTRATE SOLUTION U/D SL PRN (12:50)
[2025-02-27] MEDS: LORazepam 1 MG TAB PO PRN (14:28)
[2025-02-28] MEDS: HYOSCYAMINE SULFATE 0.125 MG SUBL TABLET PO PRN (17:10)
== END 2025-03-01 12:18 | disposition expired | DRG 871 ==
LOC: EDSEX 09:24 → EDBD 09:24 → M ED 09:24 → M ED INP 12:57 → EEVIPCON 12:57 → M PCU 15:19 → M ICU 18:07 → M PCU 02-18 17:36 → M MSPAV 02-20 15:03
PROVIDERS: ADMIT General Practice; ATTEND Internal Medicine
PROC: B246ZZZ Ultrasonography of Right and Left Heart (ICD-10-PCS; principal; 2025-02-13)
PROC: 5A1D90Z Performance of Urinary Filtration, Continuous, Greater than 18 hours Per Day (ICD-10-PCS; 2025-02-13)
PROC: 02H633Z Insertion of Infusion Device into Right Atrium, Percutaneous Approach (ICD-10-PCS; 2025-02-13)
PROC: 04HY32Z Insertion of Monitoring Device into Lower Artery, Percutaneous Approach (ICD-10-PCS; 2025-02-13)
PROC: 0W9930Z Drainage of Right Pleural Cavity with Drainage Device, Percutaneous Approach (ICD-10-PCS; 2025-02-16)
DX: A40.3 Sepsis due to Streptococcus pneumoniae (principal); J96.21 Acute and chronic respiratory failure with hypoxia; J86.9 Pyothorax without fistula; I50.43 Acute on chronic combined systolic (congestive) and diastolic (congestive) heart failure; R65.21 Severe sepsis with septic shock; N18.6 End stage renal disease; J15.3 Pneumonia due to streptococcus, group B; N39.0 Urinary tract infection, site not specified; C34.32 Malignant neoplasm of lower lobe, left bronchus or lung; I13.2 Hypertensive heart and chronic kidney disease with heart failure and with stage 5 chronic kidney disease, or end stage renal disease; I31.39 Other pericardial effusion (noninflammatory); J44.0 Chronic obstructive pulmonary disease with (acute) lower respiratory infection; B37.0 Candidal stomatitis; E87.29 Other acidosis; E87.1 Hypo-osmolality and hyponatremia; I24.89 Other forms of acute ischemic heart disease; C79.51 Secondary malignant neoplasm of bone; F05 Delirium due to known physiological condition; Z51.5 Encounter for palliative care; I27.20 Pulmonary hypertension, unspecified; G62.0 Drug-induced polyneuropathy; Z95.810 Presence of automatic (implantable) cardiac defibrillator; I48.0 Paroxysmal atrial fibrillation; I35.0 Nonrheumatic aortic (valve) stenosis; D63.1 Anemia in chronic kidney disease; D69.59 Other secondary thrombocytopenia; I25.10 Atherosclerotic heart disease of native coronary artery without angina pectoris; K21.9 Gastro-esophageal reflux disease without esophagitis; E03.9 Hypothyroidism, unspecified; B96.20 Unspecified Escherichia coli [E. coli] as the cause of diseases classified elsewhere; T45.1X5A Adverse effect of antineoplastic and immunosuppressive drugs, initial encounter; H40.9 Unspecified glaucoma; B96.1 Klebsiella pneumoniae [K. pneumoniae] as the cause of diseases classified elsewhere; Z92.3 Personal history of irradiation; Z86.718 Personal history of other venous thrombosis and embolism; Z86.711 Personal history of pulmonary embolism; Z99.2 Dependence on renal dialysis; Z79.890 Hormone replacement therapy; Z79.899 Other long term (current) drug therapy; Z88.8 Allergy status to other drugs, medicaments and biological substances; Z99.81 Dependence on supplemental oxygen; Z92.21 Personal history of antineoplastic chemotherapy